=== PATIENT | female | born 1955 | race African-American/Black ===

== ENCOUNTER 2016-12-12 11:10 | Emergency (ER) | payer OTHER ==
[~2016-12-12] VITALS: Ht 165.1 cm; Wt 129.7 kg
[~2016-12-12 11:10] MED LIST: ASPI325T4 PO; ATOR40TA59 PO; CITA20TA5 PO; LANS30TA6 PO; METF500T4 PO; METO100T11 PO; MULT-658 PO; OLME1TAB35 PO; OLME1TAB5 PO; OXYC-250 PO; TRAM200T20 PO
[2016-12-12] MEDS ORDERED: IPRATRPIUM/ALBUTEROL 0.5/2.5MG 3 ML NEBU. ONE (11:52)
[2016-12-12] MEDS ORDERED: IPRATRPIUM/ALBUTEROL 0.5/2.5MG 3 ML NEBU. NEB ONE (12:00)
--- NOTE | 2016-12-12 12:50 | PHYS DOC ---
Past Medical History Past Medical History: Diabetes-Type II, High Cholesterol, Hypertension Past Surgical History: , Other Additional Past Surgical Histo: hernia x 4 Alcohol Use: None Drug Use: None Adult General Chief Complaint Chief Complaint: FLU SYMPTOM HPI HPI Patient is a 61 year old female who presents with shortness of breath and cough for the past 7 days. Patient states that she started having fever, body aches, and cough one week ago. Patient states that her fever and body aches have improved. The patient states that her was recently diagnosed with influenza and is currently in the hospital at this time. Patient states she started developing wheezing over the past few days. Patient denies any previous history of asthma but does admit to history of hypertension. Patient states that she has not taken her medication for hypertension today. Patient denies any pain, headache, difficulty with vision, or unilateral weakness. Patient's primary concern is her breathing at this time. Review of Systems Review of Systems Constitutional: Denies fever or chills [] Eyes: Denies change in visual acuity, redness, or eye pain [] HENT: Denies nasal congestion or sore throat [] Respiratory: Cough, wheezing, shortness of breath [] Cardiovascular: Denies chest pain or edema [] GI: Denies abdominal pain, nausea, vomiting, bloody stools or diarrhea [] : Denies dysuria or hematuria [] Musculoskeletal: Denies back pain or joint pain [] Integument: Denies rash or skin lesions [] Neurologic: Denies headache, focal weakness or sensory changes [] Current Medications Current Medications Current Medications Medications (Trade) Dose Ordered Sig/[facility] Start Time Stop Time Status Last Admin Dose Admin Albuterol/ Ipratropium (Duoneb) 3 ml 1X ONCE 12/12/16 12:00 12/12/16 12:01 DC 12/12/16 11:57 3 ML Prednisone (Prednisone) 50 mg 1X ONCE 12/12/16 13:00 12/12/16 13:01 IN Allergies Allergies Allergies Coded Allergies Type Severity Reaction Last Updated Verified No Known Drug Allergies 11/14/14 No Physical Exam Physical Exam Constitutional: Alert, afebrile, appears in mild discomfort. [] HENT: Normocephalic, atraumatic, bilateral external ears normal, oropharynx moist, no oral exudates, nose normal. [] Eyes: PERRLA, EOMI, conjunctiva normal, no discharge. [] Neck: Normal range of motion, no tenderness, supple, no stridor. [] Cardiovascular:Heart rate regular rhythm, no murmur [] Lungs & Thorax: Mild/moderate restriction of air movement bilaterally, expiratory wheezes bilaterally, no rales [] Abdomen: Bowel sounds normal, soft, no tenderness, no masses, no pulsatile masses. [] Skin: Warm, dry, no erythema, no rash. [] Back: No tenderness, no CVA tenderness. [] Extremities: No tenderness, no cyanosis, no clubbing, ROM intact, no edema. [] Neurologic: Alert and oriented X 3, normal motor function, normal sensory function, no focal deficits noted. [] Current Patient Data Vital Signs Vital Signs Date Time Temp Pulse Resp B/P Pulse Ox O2 Delivery O2 Flow Rate FiO2 12/12/16 11:57 99 Room Air 12/12/16 11:12 97.5 69 18 205/108 97.5 EKG EKG Interpreted by me: Heart rate 65, sinus rhythm, normal intervals, normal axis, no acute ST/T-wave abnormalities present [] Radiology/Procedures Radiology/Procedures [facility] [address] [place] [address] IMAGING REPORT Signed PATIENT: RIAN AMEZQUITA ACCOUNT: [id number] : 1955 LOCATION: ER AGE: 61 SEX: F EXAM STATUS: REG ER ORD. PHYSICIAN: CORRY MEJÍA MD REASON: cough PROCEDURE: CHEST PA & LATERAL Examination: 2 views of the chest. History: History of cough for 3 days. Comparison: The available Findings: The cardiomediastinal silhouette grossly appears unremarkable. Minimal right lung base airspace opacities likely atelectasis or infiltrates. Impression: Minimal right lung base airspace opacities likely atelectasis or infiltrates. Follow-up to resolution.. DICTATED and SIGNED BY: MILEY NEGRON MD DATE: 12/12/16 1248 CC: CORRY MEJÍA MD; MELVI BERNAL MD ~ [] Course & Med Decision Making Course & Med Decision Making Pertinent Labs and Imaging studies reviewed. (See chart for details) Patient was given DuoNeb in the emergency department with improvement in symptoms. Patient was found to have significantly elevated blood pressure in the emergency department. Patient states that she takes Tribenzor and metoprolol for her blood pressure and she has not taken her morning dose at this time. Patient denies any headache, vision changes, chest pain, or shortness of breath while at rest. The patient states that her medication is on the premises in the hospital room or her is currently being treated. She plans on taking this medication as soon as she is discharged. The patient's chest x-ray does show evidence of mild right-sided infiltrate. The patient may have a secondary pneumonia starting to form causing the patient's current symptoms at this time. The patient will be treated with a 5 day course of Levaquin and will be given albuterol and prednisone for treatment of reactive airway disease. Advised patient to continue to monitor her blood pressure at home and return to the emergency department for any worsening or severe symptoms. Also advised patient follow-up with her primary doctor in 2-3 days. Patient voiced understanding and in agreement with treatment plan. Dragon Disclaimer Dragon Disclaimer This electronic medical record was generated, in whole or in part, using a voice recognition dictation system. Departure Departure Impression: Primary Impression: Community acquired pneumonia Additional Impressions: Reactive airway disease Hypertension Disposition: 09 ADMITTED INPATIENT Condition: IMPROVED Referrals: MELVI BERNAL MD (PCP) Patient Instructions: Hypertension, Pneumonia, Adult Additional Instructions: Follow-up to primary doctor in the next 2-3 days. Be sure to take your blood pressure medication as prescribed. Return to the emergency department for any worsening symptoms. Scripts Albuterol Sulfate (Proair Hfa Inhaler)8.5 Gm Hfa.aer.ad2 Puff INH Q4-6HRS PRN WHEEZING #1 INHALER Ref 0 Prov:CORRY MEJÍA MD 12/12/16 Prednisone 50 Mg Tablet1 Tab PO DAILY #4 TAB Start on the morning of 12/13/16 Prov:CORRY MEJÍA MD 12/12/16 Levofloxacin (Levaquin)750 Mg Tablet1 Tab PO DAILY #5 TAB Prov:CORRY MEJÍA MD 12/12/16 Problem Qualifiers Additional Impressions: Reactive airway disease Asthma severity: moderate persistent Asthma complication type: uncomplicated Qualified Code: J45.40 - Moderate persistent asthma, uncomplicated Hypertension Hypertension type: essential hypertension Qualified Code: I10 - Essential ( primary) hypertension CORRY MEJÍA MD Dec 12, 2016 12:50
[2016-12-12 12:55] VITALS: BP 207/91
[2016-12-12] MEDS ORDERED: PREDNISONE 10 MG TABLET PO ONE (13:00)
[2016-12-12] MEDS ORDERED: PROAIR HFA8.5 GM INH (13:04)
[2016-12-12] MEDS ORDERED: LEVO750T31 PO (13:04)
[2016-12-12] MEDS ORDERED: PRED50TA PO (13:04)
[2016-12-12 13:37] LABS: OBC FLU VALID
[2016-12-12 13:41] LABS: NEGATIVE OBC STREP NEG; POSITIVE OBC STREP POS
--- NOTE | 2016-12-13 06:46 | EKG ---
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
== END 2016-12-12 13:25 | disposition home or self-care (01) ==
LOC: ER 11:10
DX: J18.9 Pneumonia, unspecified organism (principal); J45.909 Unspecified asthma, uncomplicated; I10 Essential (primary) hypertension; E11.9 Type 2 diabetes mellitus without complications; E78.00 Pure hypercholesterolemia, unspecified
CPT/HCPCS: 71020; 87070; 87804; 87880; 93005; 94640; 99285; J7512; J7620

== ENCOUNTER 2017-11-20 08:06 | Outpatient (CLI) | payer OTHER ==
[2017-11-20 08:47] LABS: ADD MAN DIFF? NO
[2017-11-20 08:57] LABS: BASO % 1 % (0-3); EOS # 0.1 x10^3/uL (0.0-0.7); EOS % 3 % (0-3); HEMATOCRIT 42.6 % (36.0-47.0); HEMOGLOBIN 13.9 g/dL (12.0-15.5); LYMPH # 1.8 x10^3/uL (1.0-4.8); LYMPH % 44 % (24-48); MEAN CORPUSCULAR HEMOGLOBIN 26 pg (25-35); MEAN CORPUSCULAR HGB CONC 33 g/dL (31-37); MEAN CORPUSCULAR VOLUME 80 fL (79-100); MONO # 0.4 x10^3/uL (0.0-1.1); MONO % 9 % (0-9); NEUT # 1.8 x10^3uL (1.8-7.7); NEUT % 44 % (31-73); PLATELET COUNT 285 x10^3/uL (140-400); RED CELL DISTRIBUTION WIDTH 14.8 % (11.5-14.5); WHITE BLOOD COUNT 4.2 x10^3/uL (4.0-11.0)
[2017-11-20 09:18] LABS: ANION GAP 9 (6-14); BLOOD UREA NITROGEN 9 mg/dL (7-20); CALCIUM 8.5 mg/dL (8.5-10.1); CARBON DIOXIDE 27 mmol/L (21-32); CHLORIDE 101 mmol/L (98-107); CREATININE 0.6 mg/dL (0.6-1.0); GFR 122.6; GLUCOSE 89 mg/dL (70-99); POTASSIUM 4.2 mmol/L (3.5-5.1); SODIUM 137 mmol/L (136-145)
[2017-11-20] MEDS ORDERED: IODIXANOL 320 MG/ML 100 ML VIAL. ×2 (09:18)
[2017-11-20] MEDS ORDERED: LIDOCAINE 2% 20 ML VIAL. ×2 (09:19)
[2017-11-20 09:34] LABS: INR 1.1 (0.8-1.1); PROTHROMBIN TIME PATIENT 13.2 SEC (11.7-14.0)
[2017-11-20] MEDS ORDERED: MIDAZOLAM HCL/PF 2 MG/2 ML VIAL. ×2 (10:00)
[2017-11-20] MEDS ORDERED: HEPARIN for IV BOLUS 10,000 UNIT/10 ML VIAL. ×2 (10:00)
[2017-11-20] MEDS ORDERED: VERAPAMIL 5 MG/2 ML VIAL. ×2 (10:00)
[2017-11-20] MEDS ORDERED: NITROGLYCERIN 200 MCG/2 ML SYRINGE FOR CATH/VASC LAB. ×2 (10:00)
[2017-11-20] MEDS ORDERED: fentaNYL PF VIAL 100 MCG/2 ML VIAL ×2 (10:00)
[2017-11-20] MEDS: fentaNYL PF VIAL 100 MCG/2 ML VIAL IV ×2 (10:15)
[2017-11-20] MEDS: HEPARIN for IV BOLUS 10,000 UNIT/10 ML VIAL. IART ×2 (10:15)
[2017-11-20] MEDS: MIDAZOLAM HCL/PF 2 MG/2 ML VIAL. IV ×2 (10:15)
[2017-11-20] MEDS: VERAPAMIL 5 MG/2 ML VIAL. IART ×2 (10:15)
[2017-11-20] MEDS: NITROGLYCERIN 200 MCG/2 ML SYRINGE FOR CATH/VASC LAB. IART ×2 (10:15)
[2017-11-20] MEDS: LIDOCAINE 2% 20 ML VIAL. IJ ×2 (10:15)
[2017-11-20] MEDS: IODIXANOL 320 MG/ML 100 ML VIAL. IART ×2 (10:15)
[2017-11-20] MEDS ORDERED: 0.9 % SODIUM CHLORIDE 10 ML DISP.SYRIN. IV ×2 (10:45)
[2017-11-20] MEDS ORDERED: NITROGLYCERIN SUBLINGUAL 0.4 MG BOTTLE OF 25. SL ×2 (10:45)
== END 2017-11-20 13:15 | disposition home or self-care (01) ==
LOC: CCL 08:06
DX: I20.0 Unstable angina (principal); I10 Essential (primary) hypertension; E66.9 Obesity, unspecified; Z68.42 Body mass index [BMI] 45.0-49.9, adult; E11.9 Type 2 diabetes mellitus without complications; F41.9 Anxiety disorder, unspecified; F32.9 Major depressive disorder, single episode, unspecified; Z87.891 Personal history of nicotine dependence; Z87.39 Personal history of other diseases of the musculoskeletal system and connective tissue
CPT/HCPCS: 36415; 80048; 85025; 85610; 93458; 99152; C1769; C1892; J1644; J2250; J3010; J3490

== ENCOUNTER 2019-05-15 18:35 | Emergency (ER) | payer MEDICAID, OTHER ==
[~2019-05-15] VITALS: Ht 165.1 cm; Wt 127.0 kg
[~2019-05-15 18:35] MED LIST changes: +ALBU2.5V8 INH; -ASPI325T4 PO; +ASPI325T8 PO; -CITA20TA5 PO; +CITA20TA6 PO; +CLON0.1T PO; +ESCITALOPRAM OX10 MG PO; +HYDR-3135 PO; +LEVO750T31 PO; +METF500T16 PO; -METF500T4 PO; +METO-247 PO; -METO100T11 PO; +METO50TA6 PO; +OLME1TAB25 PO; -OLME1TAB5 PO; +OXYB5TAB7 PO; -OXYC-250 PO; +OXYC1TAB22 PO; +PRED50TA PO
[2019-05-15] MEDS ORDERED: fentaNYL PF VIAL 100 MCG/2 ML VIAL IV ONE (19:00)
[2019-05-15] MEDS ORDERED: FAMOTIDINE 20 MG/2 ML VIAL IVP ONE (19:00)
[2019-05-15] MEDS ORDERED: IV NORMAL SALINE 1000ML BAG 1,000 ML IV ONE (19:00)
[2019-05-15] MEDS ORDERED: ONDANSETRON PF 4 MG/2 ML VIAL. IV ONE (19:00)
[2019-05-15 19:05] LABS: BASO % 1 % (0-3); EOS # 0.1 x10^3/uL (0.0-0.7); EOS % 2 % (0-3); HEMATOCRIT 41.4 % (36.0-47.0); HEMOGLOBIN 13.7 g/dL (12.0-15.5); LYMPH # 1.4 x10^3/uL (1.0-4.8); LYMPH % 32 % (24-48); MEAN CORPUSCULAR HEMOGLOBIN 27 pg (25-35); MEAN CORPUSCULAR HGB CONC 33 g/dL (31-37); MEAN CORPUSCULAR VOLUME 80 fL (79-100); MONO # 0.4 x10^3/uL (0.0-1.1); MONO % 8 % (0-9); NEUT # 2.7 x10^3/uL (1.8-7.7); NEUT % 58 % (31-73); PLATELET COUNT 251 x10^3/uL (140-400); RED BLOOD COUNT 5.17 x10^6/uL (3.50-5.40); RED CELL DISTRIBUTION WIDTH 15.1 % (11.5-14.5); WHITE BLOOD COUNT 4.6 x10^3/uL (4.0-11.0)
[2019-05-15 19:13] LABS: CALCIUM 8.8 mg/dL (8.5-10.1); CREATININE 1.4 mg/dL (0.6-1.0); GFR 45.8
[2019-05-15 19:14] LABS: PROTHROMBIN TIME PATIENT 12.9 SEC (11.7-14.0)
[2019-05-15 19:19] LABS: ALBUMIN 3.2 g/dL (3.4-5.0); ALBUMIN/GLOBULIN RATIO 0.9 (1.0-1.7); TOTAL BILIRUBIN 0.3 mg/dL (0.2-1.0); TOTAL PROTEIN 6.9 g/dL (6.4-8.2)
[2019-05-15] MEDS ORDERED: IOHEXOL 300 MG/ML 100ML VIAL. IV ONE (20:00)
[2019-05-15] MEDS ORDERED: CONTRAST GIVEN. MC PRN (20:00)
[2019-05-15] MEDS ORDERED: IOHEXOL 240 MG/ML 50ML VIAL. PO ONE (20:00)
--- NOTE | 2019-05-15 20:32 | PHYS DOC ---
Past Medical History Past Medical History: Diabetes-Type II, High Cholesterol, Hypertension Past Surgical History: , Other Additional Past Surgical Histo: hernia x 4, colostomy placement Alcohol Use: None Drug Use: None Adult General Chief Complaint Chief Complaint: ABDOMINAL PAIN HPI HPI Patient is a 64 year old [f__sex] who presents with [] Review of Systems Review of Systems Constitutional: Denies fever or chills Eyes: Denies redness or eye pain HENT: Denies nasal congestion or sore throat Respiratory: Denies cough or shortness of breath Cardiovascular: Denies chest pain or palpitations GI: Denies abdominal pain, nausea, or vomiting : Denies dysuria or hematuria Musculoskeletal: Denies back pain or joint pain Integument: Denies rash or skin lesions Neurologic: Denies headache, focal weakness or sensory changes Complete systems were reviewed and found to be within normal limits, except as documented in this note. Current Medications Current Medications Current Medications Medications (Trade) Dose Ordered Sig/[facility] Start Time Stop Time Status Last Admin Dose Admin Famotidine (Pepcid Vial) 20 mg 1X ONCE 05/15/19 19:00 05/15/19 19:01 DC 05/15/19 19:09 20 MG Fentanyl Citrate (Fentanyl 2ml Vial) 50 mcg 1X ONCE 05/15/19 19:00 05/15/19 19:01 DC 05/15/19 19:09 50 MCG Info (CONTRAST GIVEN -- Rx MONITORING) 1 each PRN DAILY PRN 05/15/19 20:00 05/15/19 22:22 DC Iohexol (Omnipaque 240 Mg/ml) 30 ml 1X ONCE 05/15/19 20:00 05/15/19 20:01 DC 05/15/19 20:42 30 ML Iohexol (Omnipaque 300 Mg/ml) 60 ml 1X ONCE 05/15/19 20:00 05/15/19 20:01 DC 05/15/19 20:42 60 ML Ondansetron HCl (Zofran) 4 mg 1X ONCE 05/15/19 19:00 05/15/19 19:01 DC 05/15/19 19:09 4 MG Sodium Chloride 1,000 ml @ 1,000 mls/hr 1X ONCE 05/15/19 19:00 05/15/19 19:59 DC 05/15/19 19:09 1,000 MLS/HR Allergies Allergies Allergies Coded Allergies Type Severity Reaction Last Updated Verified No Known Drug Allergies 05/15/18 No Physical Exam Physical Exam Constitutional: Well developed, well nourished, no acute distress, non-toxic appearance HENT: Normocephalic, atraumatic, oropharynx moist Eyes: PERRL, EOMI, conjunctiva normal, no discharge Neck: Normal range of motion, no tenderness, supple Cardiovascular: Heart rate normal, regular rhythm Lungs & Thorax: Bilateral breath sounds clear to auscultation, no wheezing Abdomen: Soft, no tenderness Skin: Warm, dry, no erythema, no rash Back: No tenderness, no CVA tenderness Extremities: No tenderness, ROM intact, no edema Neurologic: Alert and oriented X 3, normal motor function, normal sensory function, no focal deficits noted Psychologic: Affect normal, judgement normal, mood normal Current Patient Data Vital Signs Vital Signs Date Time Temp Pulse Resp B/P (MAP) Pulse Ox O2 Delivery O2 Flow Rate FiO2 05/15/19 21:56 72 233/98 (143) 96 Room Air 05/15/19 21:00 18 05/15/19 18:35 97.5 97.5 Lab Values Laboratory Tests Test 05/15/19 18:40 05/15/19 19:01 05/15/19 20:50 White Blood Count 4.6 x10^3/uL (4.0-11.0) Red Blood Count 5.17 x10^6/uL (3.50-5.40) Hemoglobin 13.7 g/dL (12.0-15.5) Hematocrit 41.4 % (36.0-47.0) Mean Corpuscular Volume 80 fL (79-100) Mean Corpuscular Hemoglobin 27 pg (25-35) Mean Corpuscular Hemoglobin Concent 33 g/dL (31-37) Red Cell Distribution Width 15.1 % (11.5-14.5) H Platelet Count 251 x10^3/uL (140-400) Neutrophils (%) (Auto) 58 % (31-73) Lymphocytes (%) (Auto) 32 % (24-48) Monocytes (%) (Auto) 8 % (0-9) Eosinophils (%) (Auto) 2 % (0-3) Basophils (%) (Auto) 1 % (0-3) Neutrophils # (Auto) 2.7 x10^3/uL (1.8-7.7) Lymphocytes # (Auto) 1.4 x10^3/uL (1.0-4.8) Monocytes # (Auto) 0.4 x10^3/uL (0.0-1.1) Eosinophils # (Auto) 0.1 x10^3/uL (0.0-0.7) Basophils # (Auto) 0.0 x10^3/uL (0.0-0.2) Prothrombin Time 12.9 SEC (11.7-14.0) Prothrombin Time INR 1.0 (0.8-1.1) Activated Partial Thromboplast Time 29 SEC (24-38) Sodium Level 143 mmol/L (136-145) Potassium Level 4.0 mmol/L (3.5-5.1) Chloride Level 106 mmol/L (98-107) Carbon Dioxide Level 28 mmol/L (21-32) Anion Gap 9 (6-14) Blood Urea Nitrogen 16 mg/dL (7-20) Creatinine 1.4 mg/dL (0.6-1.0) H Estimated GFR (Cockcroft-Gault) 45.8 BUN/Creatinine Ratio 11 (6-20) Glucose Level 134 mg/dL (70-99) H Calcium Level 8.8 mg/dL (8.5-10.1) Total Bilirubin 0.3 mg/dL (0.2-1.0) Aspartate Amino Transferase (AST) 26 U/L (15-37) Alanine Aminotransferase (ALT) 41 U/L (14-59) Alkaline Phosphatase 97 U/L (46-116) Creatine Kinase 162 U/L (26-192) Creatine Kinase MB (Mass) 1.8 ng/mL (0.0-3.6) Creatine Kinase MB Relative Index 1.1 % (0-4) Troponin I Quantitative < 0.017 ng/mL (0.000-0.055) Total Protein 6.9 g/dL (6.4-8.2) Albumin 3.2 g/dL (3.4-5.0) L Albumin/Globulin Ratio 0.9 (1.0-1.7) L Lipase 135 U/L (73-393) Lactic Acid Level 1.3 mmol/L (0.4-2.0) Urine Collection Type Unknown Urine Color Yellow Urine Clarity Clear Urine pH 5.0 Urine Specific [place] >=1.030 Urine Protein Negative mg/dL (NEG-TRACE) Urine Glucose (UA) Negative mg/dL (NEG) Urine Ketones (Stick) Negative mg/dL (NEG) Urine Blood Negative (NEG) Urine Nitrite Negative (NEG) Urine Bilirubin Negative (NEG) Urine Urobilinogen Dipstick 1.0 mg/dL (0.2 mg/dL) Urine Leukocyte Esterase Negative (NEG) Urine RBC 0 /HPF (0-2) Urine WBC 1-4 /HPF (0-4) Urine Squamous Epithelial Cells Mod /LPF Urine Bacteria 0 /HPF (0-FEW) Urine Mucus Mod /LPF Laboratory Tests 05/15/19 18:40 Laboratory Tests 05/15/19 18:40 EKG EKG @1914 NSR 63bpm, NO ST elevation, baseline artifact throughout Radiology/Procedures Radiology/Procedures PROCEDURE: CT ABD PELV W/ORAL&IV CONTRAST EXAM: CT Abdomen and Pelvis with IV contrast CLINICAL HISTORY: Left upper quadrant pain, history of pancreatitis. COMPARISON: none TECHNIQUE: Helical CT of the abdomen and pelvis was performed following the administration of intravenous contrast. Axial, coronal and sagittal reformatted images were generated. PQRS compliance statement - One or more of the following individualized dose reduction techniques were utilized for this study: 1. Automated exposure control 2. Adjustment of the mA and/or kV according to patient size 3. Use of iterative reconstruction technique FINDINGS: Lower chest: Linear opacities in the lingula and lower lobes likely scarring/atelectasis. Heart is mildly enlarged. Abdomen and Pelvis: No focal liver lesion. Gallbladder is normal. No biliary ductal dilatation. Pancreas is unremarkable. Spleen is normal in appearance. Adrenal glands are unremarkable. Symmetric nephrograms. No focal renal lesion. No hydronephrosis. No hydroureter. Bladder is unremarkable. Moderate colonic stool content is seen. No small or large bowel dilatation. Appendix is normal. There are 2 ventral abdominal hernias containing segments of colon. No abdominal pelvic ascites. No abdominal or pelvic lymphadenopathy. Aortic calcifications are seen. Bones: Multilevel degenerative changes of the spine are seen. IMPRESSION: 1. No evidence for acute pancreatitis. 2. There are at least 2 ventral abdominal hernias containing segments of colon. 3. No evidence of bowel obstruction. 4. No abdominal or pelvic ascites. No abdominal or pelvic lymphadenopathy. Electronically signed by: Chon Lea MD (05/15/2019 9:17 PM) [facility] Course & Med Decision Making Course & Med Decision Making Pertinent Labs and Imaging studies reviewed. (See chart for details) Patient stable for discharge with outpatient follow-up with PCP. Discussed findings and plan with patient and family, who acknowledge understanding and agreement. Dragon Disclaimer Dragon Disclaimer This electronic medical record was generated, in whole or in part, using a voice recognition dictation system. Departure Departure Impression: Primary Impression: Abdominal pain Additional Impression: Ventral hernia Disposition: HOME, SELF-CARE Condition: STABLE Referrals: HEATHER LAUREN DO (PCP) RUSS GEORGE MD, VINAY MD Patient Instructions: Abdominal Pain (Nonspecific), Hernia, Eowh-el-Udyq Scripts Hydrocodone/Apap 5-325 (NORCO 5-325 TABLET) 1 Each Tablet 0.5 TAB PO PRN Q6HRS PRN for PAIN, #10 TAB 0 Refills Prov: KLAUS STEVENS DO 05/15/19 Problem Qualifiers Primary Impression: Abdominal pain Abdominal location: left upper quadrant Qualified Codes: R10.12 - Left upper quadrant pain Additional Impression: Ventral hernia Obstruction and gangrene presence: without obstruction or gangrene Qualified Codes: K43.9 - Ventral hernia without obstruction or gangrene KLAUS STEVENS DO May 15, 2019 20:32
[2019-05-15 21:00] LABS: BILIRUBIN,URINE NEGATIVE (NEG); CLARITY,URINE CLEAR; COLOR,URINE YELLOW; NITRITE,URINE NEGATIVE (NEG); PROTEIN,URINE NEGATIVE (NEG-TRACE)
[2019-05-15 21:07] LABS: SQUAMOUS EPITHELIAL CELL,UR MOD /LPF
[2019-05-15 21:08] LABS: BACTERIA,URINE 0 /HPF (0-FEW); RBC,URINE 0 /HPF (0-2)
--- NOTE | 2019-05-15 21:19 | RAD ---
EXAM: CT Abdomen and Pelvis with IV contrast CLINICAL HISTORY: Left upper quadrant pain, history of pancreatitis. COMPARISON: none TECHNIQUE: Helical CT of the abdomen and pelvis was performed following the administration of intravenous contrast. Axial, coronal and sagittal reformatted images were generated. PQRS compliance statement - One or more of the following individualized dose reduction techniques were utilized for this study: 1. Automated exposure control 2. Adjustment of the mA and/or kV according to patient size 3. Use of iterative reconstruction technique FINDINGS: Lower chest: Linear opacities in the lingula and lower lobes likely scarring/atelectasis. Heart is mildly enlarged. Abdomen and Pelvis: No focal liver lesion. Gallbladder is normal. No biliary ductal dilatation. Pancreas is unremarkable. Spleen is normal in appearance. Adrenal glands are unremarkable. Symmetric nephrograms. No focal renal lesion. No hydronephrosis. No hydroureter. Bladder is unremarkable. Moderate colonic stool content is seen. No small or large bowel dilatation. Appendix is normal. There are 2 ventral abdominal hernias containing segments of colon. No abdominal pelvic ascites. No abdominal or pelvic lymphadenopathy. Aortic calcifications are seen. Bones: Multilevel degenerative changes of the spine are seen. IMPRESSION: 1. No evidence for acute pancreatitis. 2. There are at least 2 ventral abdominal hernias containing segments of colon. 3. No evidence of bowel obstruction. 4. No abdominal or pelvic ascites. No abdominal or pelvic lymphadenopathy. Electronically signed by: Chon Lea MD (05/15/2019 9:17 PM) [facility]
[2019-05-15] MEDS ORDERED: HYDR-3164 PO (21:36)
[2019-05-15 21:56] VITALS: BP 233/98
--- NOTE | 2019-05-16 10:17 | EKG ---
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
== END 2019-05-15 22:05 | disposition home or self-care (01) ==
LOC: ER 18:35
DX: K43.9 Ventral hernia without obstruction or gangrene (principal); E11.9 Type 2 diabetes mellitus without complications; E78.00 Pure hypercholesterolemia, unspecified; I10 Essential (primary) hypertension; Z98.890 Other specified postprocedural states; Z93.3 Colostomy status
CPT/HCPCS: 36415; 74177; 80053; 81001; 82553; 83605; 83690; 84484; 85025; 85610; 85730; 93005; 96374; 96375; 99285; J2405; J3010; J3490; J7030; Q9966; Q9967

== ENCOUNTER → 2019-08-06 | Day surgery (SDC) | payer MEDICAID ==
[~2019-08-06] MED LIST changes: +HYDR-3164 PO; +HYDROmorphone 2 MG/ML VIAL IV PRN; +IV RINGERS,LACTATED 1000ML 1,000 ML IV SCH; +MORPHINE SULFATE 2 MG/ML VIAL. IV PRN; +OXYB5TAB10 PO; -OXYB5TAB7 PO; +PROCHLORPERAZINE 10 MG/2 ML VIAL. IV PRN; +PROPOFOL 40 ML IV ONE; +fentaNYL PF VIAL 100 MCG/2 ML VIAL IV PRN
--- NOTE | 2019-08-06 07:38 | CONS ---
DATE OF CONSULTATION: 08/06/2019 REFERRING PHYSICIAN: Dr. Martin. HISTORY OF PRESENT ILLNESS: This is a 64-year-old -[place] female with past medical history significant for hypertension, hyperlipidemia as well as colon cancer, status post diverting ostomy, chemotherapy and radiation seen for colostomy takedown. She has undergone chemotherapy and radiation. Bowel habits at this time are stable. She wishes to proceed. PAST MEDICAL HISTORY: Hyperlipidemia, hypertension, diabetes. ALLERGIES: None. MEDICATIONS: Include [place], albuterol, aspirin, atorvastatin, clonidine, citalopram, metformin, metoprolol, hydrochlorothiazide, amlodipine. SOCIAL HISTORY: She is a nonsmoker, nondrinker. FAMILY HISTORY: Significant for kidney cancer with her son. PAST SURGICAL HISTORY: , hysterectomy, ventral hernia repair as well as colon cancer with diverting ostomy. REVIEW OF SYSTEMS: Per records. PHYSICAL EXAMINATION: GENERAL: Reveals a well-nourished, well-developed -[place] female who is alert, cooperative, no acute distress. VITAL SIGNS: Temperature is 97.8, pulse 58, respiratory rate 18. HEENT: Normocephalic, atraumatic head. Pupils and extraocular muscles are not tested. Sclerae anicteric. NECK: Supple. LUNGS: Clear. CARDIOVASCULAR: Reveals an S1, S2 without S3, S4 or appreciable murmur. ABDOMEN: Reveals a soft abdomen, normal bowel sounds, without appreciable hepatosplenomegaly with an ostomy in left lower quadrant. EXTREMITIES: Reveals no cyanosis, clubbing or edema. IMPRESSION: Colon cancer, status post chemoradiation here for surveillance colonoscopy prior to colostomy takedown. Risks and benefits of procedure including risk of hemorrhage and perforation have been discussed. The patient is willing to proceed at this time. RUSS GEORGE MD DR: SANA/ash JOB#: [id number] / [id number]
[2019-08-06 07:56] VITALS: BP 180/84
== END | disposition home or self-care (01) ==
LOC: SURG 06:26
PROVIDERS: ATTEND Internal Medicine Gastroenterology
DX: Z12.11 Encounter for screening for malignant neoplasm of colon (principal); K57.30 Diverticulosis of large intestine without perforation or abscess without bleeding; K64.0 First degree hemorrhoids; E78.5 Hyperlipidemia, unspecified; E11.9 Type 2 diabetes mellitus without complications; Z85.038 Personal history of other malignant neoplasm of large intestine; Z93.3 Colostomy status; Z90.710 Acquired absence of both cervix and uterus; Z98.890 Other specified postprocedural states; Z79.82 Long term (current) use of aspirin; Z79.84 Long term (current) use of oral hypoglycemic drugs
CPT/HCPCS: 44388; J2704; 45378

== ENCOUNTER 2019-09-09 19:45 | Inpatient (IN) | payer MEDICAID ==
[~2019-09-09] VITALS: Ht 165.1 cm; Wt 130.6 kg
[2019-09-09 19:30] VITALS: BP 156/100
[~2019-09-09 19:45] MED LIST changes: -HYDROmorphone 2 MG/ML VIAL IV PRN; -IV RINGERS,LACTATED 1000ML 1,000 ML IV SCH; -MORPHINE SULFATE 2 MG/ML VIAL. IV PRN; -PROCHLORPERAZINE 10 MG/2 ML VIAL. IV PRN; -PROPOFOL 40 ML IV ONE; -fentaNYL PF VIAL 100 MCG/2 ML VIAL IV PRN
[2019-09-09] MEDS ORDERED: ACETAMINOPHEN 325 MG TABLET. PO PRN (21:15)
[2019-09-09] MEDS ORDERED: ONDANSETRON PF 4 MG/2 ML VIAL. IV PRN (21:15)
[2019-09-09] MEDS ORDERED: DOCUSATE SODIUM 100 MG CAPSULE. PO PRN (21:15)
[2019-09-09] MEDS ORDERED: DEXTROSE 50% 25 GM / 50ML DISP.SYRIN. IV PRN (21:15)
[2019-09-09] MEDS ORDERED: LABETALOL 20 MG/4 ML DISP.SYRIN. IVP PRN (21:15)
[2019-09-09] MEDS ORDERED: cloNIDine HCL 0.1 MG TABLET PO PRN (21:15)
[2019-09-09] MEDS ORDERED: ALBUTEROL SULFATE 2.5 MG/3 ML NEBU. INH PRN (21:15)
[2019-09-09] MEDS: OXYBUTYNIN CHLORIDE 5 MG TABLET PO SCH (21:30)
[2019-09-09] MEDS: ATORVASTATIN CALCIUM 40 MG TABLET. PO SCH (21:30)
[2019-09-09] MEDS: cloNIDine HCL 0.1 MG TABLET PO SCH (21:30)
[2019-09-09] MEDS: METOPROLOL TART IMMED RELEASE 50 MG TABLET. PO SCH (21:30)
[2019-09-09] MEDS: INSULIN LISPRO 300 UNITS/3 ML VIAL. SQ SCH (21:30)
[2019-09-09 23:58] VITALS: BP 101/74
[2019-09-10 03:40] VITALS: BP 147/99
[2019-09-10 06:40] LABS: CALCIUM 8.7 mg/dL (8.5-10.1); CREATININE 0.9 mg/dL (0.6-1.0); GFR 76.3; POTASSIUM 3.9 mmol/L (3.5-5.1)
[2019-09-10 07:00] VITALS: BP 166/80
[2019-09-10] MEDS: INSULIN LISPRO 300 UNITS/3 ML VIAL. SQ SCH ×4 (07:30→21:00)
[2019-09-10] MEDS ORDERED: metFORMIN 500 MG TABLET PO SCH (08:00)
[2019-09-10] MEDS ORDERED: ASPIRIN 325 MG TABLET PO SCH (08:00)
[2019-09-10] MEDS ORDERED: [UNRECOGNIZED DRUG - OTHER] PO SCH (09:00)
[2019-09-10] MEDS ORDERED: OLMESARTAN PO SCH (09:00)
[2019-09-10] MEDS ORDERED: FLU VAX QS 2019-20 (36MOS+)/PF 0.5 ML SYRINGE. VAX IM ONE (09:00)
[2019-09-10] MEDS ORDERED: HCTHIAZID PO SCH (09:00)
[2019-09-10] MEDS ORDERED: AMLODIPIN PO SCH (09:00)
[2019-09-10] MEDS ORDERED: ENOXAPARIN 40 MG/0.4 ML SYRINGE. SQ SCH ×2 (09:00→13:30)
[2019-09-10] MEDS: LOSARTAN POTASSIUM 50 MG TABLET. PO SCH (09:53)
[2019-09-10] MEDS: cloNIDine HCL 0.1 MG TABLET PO SCH ×2 (09:53→21:00)
[2019-09-10] MEDS: hydroCHLOROthiazide 25 MG TABLET PO SCH (09:54)
[2019-09-10] MEDS: amLODIPine BESYLATE 10 MG TABLET PO SCH (09:54)
[2019-09-10] MEDS: OXYBUTYNIN CHLORIDE 5 MG TABLET PO SCH ×3 (09:55→22:23)
[2019-09-10] MEDS: METOPROLOL TART IMMED RELEASE 50 MG TABLET. PO SCH (09:55)
[2019-09-10] MEDS: CITALOPRAM 20 MG TABLET. PO SCH (09:56)
--- NOTE | 2019-09-10 10:42 | PDOC2 ---
NEUROLOGY CONSULT Date of Admission Date of Admission DATE: 09/10/19 TIME: 10:33 Reason for Consult Reason for Consult: Dizziness Referring Physician Referring Physician: Dr. Bardales Source Source: Chart review, Patient History of Present Illness History of Present Illness I was never notified of this consult, she appeared on my list this morning. The patient is a 64-year-old right-handed female who presented to the [facility] emergency room with dizziness. Dizziness was worse with head and position change. She has had some fullness in the right ear for the past 3 days. She was hypertensive with blood pressures of 200/100 in the emergency department. She did have some nausea and vomiting, but no dysarthria, dysphagia, diplopia, focal numbness, weakness. Apparently on NIH, there was some right leg weakness, not confirmed by the emergency room physician. The emergency room physician did note cerumen impaction of the right tympanic membrane. She has no history of stroke, seizure, or head injury. Past Medical History Cardiovascular: CHF (cardiomyopathy), HTN Pulmonary: Other (sleep apnea) Heme/Onc: Cancer (colon) Psych: Anxiety, Depression Musculoskeletal: Osteoarthritis (knees) Past Surgical History Past Surgical History: Cataract Removal, , Hernia Repair (abdominal times 3), Hysterectomy, Colon Resection (colostomy) Family History Family History: CAD Social History Social History , retired, no alcohol or tobacco Current Medications Current Medications Current Medications Ondansetron HCl (Zofran) 4 mg PRN Q4HRS PRN IV NAUSEA/VOMITING; Start 09/09/19 at 21:15 Acetaminophen (Tylenol) 650 mg PRN Q4HRS PRN PO TEMP OVER 100.4F OR MILD PAIN; Start 09/09/19 at 21:15 Clonidine HCl (Catapres) 0.1 mg PRN Q6HRS PRN PO SBP>160 OR DBP>90; Start 09/09/19 at 21:15 Docusate Sodium (Colace) 100 mg PRN BID PRN PO CONSTIPATION; Start 09/09/19 at 21:15 Enoxaparin Sodium (Lovenox 40mg Syringe) 40 mg DAILY SQ Last administered on 09/10/19at 09:56; Start 09/10/19 at 09:00 Labetalol HCl (Normodyne Iv Push) 10 mg PRN Q2HR PRN IVP HYPERTENSION; Start 09/09/19 at 21:15 Insulin Human Lispro (HumaLOG) 0-7 UNITS TIDACHC SQ ; Start 09/09/19 at 21:30 Dextrose (Dextrose 50%-Water Syringe) 12.5 gm PRN Q15MIN PRN IV SEE COMMENTS; Start 09/09/19 at 21:15 Albuterol Sulfate (Ventolin Neb Soln) 2.5 mg PRN Q4HRS PRN INH WHEEZING; Start 09/09/19 at 21:15 Aspirin (Radha Aspirin) 325 mg DAILYWBKFT PO Last administered on 09/10/19 09:55; Start 09/10/19 at 08:00 Atorvastatin Calcium (Lipitor) 40 mg QHS PO ; Start 09/09/19 at 21:30 Clonidine HCl (Catapres) 0.2 mg BID PO Last administered on 09/10/19at 09:53; Start 09/09/19 at 21:30 Acetaminophen/ Hydrocodone Bitart (Lortab 10/325) 1 tab PRN QHS PRN PO pain; Start 09/09/19 at 21:15 Metformin HCl (Glucophage) 500 mg BIDWMEALS PO Last administered on 09/10/19 09:55; Start 09/10/19 at 08:00 Metoprolol Tartrate (Lopressor) 50 mg BID PO Last administered on 09/10/19 09:55; Start 09/09/19 at 21:30 Oxybutynin Chloride (Ditropan) 5 mg TID PO Last administered on 09/10/19 09:55; Start 09/09/19 at 21:30 Citalopram Hydrobromide (CeleXA) 20 mg DAILY PO Last administered on 09/10/19 09:56; Start 09/10/19 at 09:00 Non-Formulary Medication (Olmesartan/ Amlodipin/ Hcthiazid (Tribenzor 40-10-25 Mg Tablet)) 1 tab DAILY PO ; Start 09/10/19 at 09:00; Status UNV Losartan Potassium (Cozaar) 100 mg DAILY PO Last administered on 09/10/19 09:53; Start 09/10/19 at 09:00 Amlodipine Besylate (Norvasc) 10 mg DAILY PO Last administered on 09/10/19 09:54; Start 09/10/19 at 09:00 Hydrochlorothiazide (Hydrodiuril) 25 mg DAILY PO Last administered on 09/10/19at 09:54; Start 09/10/19 at 09:00 Influenza Virus Vaccine Quadrival (Afluria Quad 2019-20 (3yr Up) Syringe) 0.5 ml ONCE ONCE VAX IM Last administered on 09/10/19at 10:06; Start 09/10/19 at 09:00; Stop 09/10/19 at 09:01; Status DC Active Scripts Active Proair Hfa Inhaler (Albuterol Sulfate) 8.5 Gm Hfa.aer.ad 2 Puff INH Q4-6HRS PRN Reported [place] 10-325 Tablet (Acetaminophen/Hydrocodone Bitart) 1 Each Tablet 1 Tab PO QHS Metoprolol Tartrate 50 Mg Tablet 1 Tab PO BID Oxybutynin Chloride 5 Mg Tablet 5 Mg PO TID Clonidine Hcl 0.1 Mg Tablet 0.2 Mg PO BID Escitalopram Oxalate 10 Mg Tablet 1 Tab PO DAILY Tribenzor 40-10-25 Mg Tablet (Olmesartan/Amlodipin/Hcthiazid) 1 Each Tablet 1 Tab PO DAILY Centrum Silver Tablet (Multivits-Min/Fa/Lycopene/Lut) 1 Each Tablet 1 Each PO Aspirin 325 Mg Tablet 1 Tab PO DAILY Atorvastatin Calcium 40 Mg Tablet 1 Tab PO DAILY Metformin Hcl 500 Mg Tablet 1 Tab PO BID Allergies Allergies: Coded Allergies: No Known Drug Allergies (Unverified , 08/06/19) ROS Review of System Negative for fever, chills, weight loss, shortness of breath, chest pain, indigestion, hematochezia, melena, and dysuria. Full 14-point review of systems is negative. Physical Exam Physical Examination General: Well-developed, well-nourished black female in no acute distress HEENT: Normocephalic andatraumatic. Tympanic membranes: impacted cerumen on the right, normal on the left.Temporal arteriespulsatile and nontender. Neck: Supple without bruit, no meningismus Musculoskeletal: Stability:see neurologic. Gait exam:see neurologic. Tone:see neurologic.Strength:see neurologic. Neurological: Mental Status:intact, orientation, memory, attention span/concentration, language, fund of knowledge normal. Cranial Nerves:Pupils equal and reactive to light, extraocular movements areintact, visual gonzalez are full to confrontation. Facial sensation is normal. There is no facial asymmetry. Vestibulo-ocular reflex is intact. Palate elevates and tongue protrudes in midline. All other cranial related problems are negative except as mentioned before.Reflexes:2+ and symmetric with flexor plantar responses. Motor:5/5 strength with normal tone and bulk. Coordination:Finger-nose finger and [id number] testing are normal. Rapid alternating movements and fine finger movements are intact. Gait:arthritic, can't tandem. Sensory:Normal pinprick, vibration, light touch, proprioception. Vitals VITALS Vital Signs Date Time Temp Pulse Resp B/P (MAP) Pulse Ox O2 Delivery O2 Flow Rate FiO2 09/10/19 09:55 64 166/80 09/10/19 07:00 98.1 18 98 Room Air 98.1 Labs Labs Laboratory Tests Test 09/09/19 21:33 09/10/19 05:15 09/10/19 10:28 Glucose (Fingerstick) 101 mg/dL (70-99) 186 mg/dL (70-99) Sodium Level 143 mmol/L (136-145) Potassium Level 3.9 mmol/L (3.5-5.1) Chloride Level 106 mmol/L (98-107) Carbon Dioxide Level 30 mmol/L (21-32) Anion Gap 7 (6-14) Blood Urea Nitrogen 13 mg/dL (7-20) Creatinine 0.9 mg/dL (0.6-1.0) Estimated GFR (Cockcroft-Gault) 76.3 Glucose Level 113 mg/dL (70-99) Calcium Level 8.7 mg/dL (8.5-10.1) Laboratory Tests Test 09/09/19 21:33 09/10/19 05:15 09/10/19 10:28 Glucose (Fingerstick) 101 mg/dL (70-99) 186 mg/dL (70-99) Sodium Level 143 mmol/L (136-145) Potassium Level 3.9 mmol/L (3.5-5.1) Chloride Level 106 mmol/L (98-107) Carbon Dioxide Level 30 mmol/L (21-32) Anion Gap 7 (6-14) Blood Urea Nitrogen 13 mg/dL (7-20) Creatinine 0.9 mg/dL (0.6-1.0) Estimated GFR (Cockcroft-Gault) 76.3 Glucose Level 113 mg/dL (70-99) Calcium Level 8.7 mg/dL (8.5-10.1) Images Images CT HEAD WO CONTRAST, [facility] History: Dizziness Comparison/Correlation: 01/05/2014 CT head without contrast Findings: Axial images of the head were obtained without contrast. Metastatic disease present. No intracranial hemorrhage, midline shift, mass effect. Old right basal ganglia lacunar infarct is present. Bony structures unremarkable. Impression: No suspicious process. Assessment/Plan Assessment/Plan Impression: I'm not picking up on any signs of a stroke. On the other hand, she has had fullness in the right ear for 4 days and has cerumen in the right ear seen on my exam as well as that of the emergency room physician. Therefore, I doubt that she had a stroke, but rather just patent cerumen. Gait disorder due to arthritis in the knees Recommendations: MRI of the brain Rehabilitation screening No need for full stroke pathway unless MRI abnormal Okay for discharged today I instructed the patient to follow up with her primary physician for removal of impacted cerumen or she could see ENT. Thank you for letting me help with the patient's care. CHEVY IRELAND MD Sep 10, 2019 10:42
[2019-09-10 10:49] VITALS: BP 143/60
--- NOTE | 2019-09-10 10:54 | PDOC1 ---
History and Physical Date of Admission Date of Admission DATE: 09/10/19 TIME: 10:53 Identification/Chief Complaint Chief Complaint admitted with dizziness, vertigo, gait disturbance, fall risk, high Past Medical History Past Medical History Past Medical History Cardiovascular: CHF (cardiomyopathy), HTN Pulmonary: Other (sleep apnea) Heme/Onc: Cancer (colon) Psych: Anxiety, Depression Musculoskeletal: Osteoarthritis (knees) Past Surgical History Past Surgical History: Cataract Removal, , Hernia Repair (abdominal times 3), Hysterectomy, Colon Resection (colostomy) Family History Family History: CAD Social History Social History , retired, no alcohol or tobacco Cardiovascular: CHF (cardiomyopathy), HTN Pulmonary: Other (sleep apnea) GI: Other Heme/Onc: Cancer (colon) Psych: Anxiety, Depression Musculoskeletal: Osteoarthritis (knees) Past Surgical History Past Surgical History: Cataract Removal, , Hernia Repair (abdominal times 3), Hysterectomy, Colon Resection (colostomy) Family History Family History: High Cholestrol, Other Family History: Parent Social History Smoke: No ALCOHOL: none Drugs: None Current Medications Current Medications Current Medications Ondansetron HCl (Zofran) 4 mg PRN Q4HRS PRN IV NAUSEA/VOMITING; Start 09/09/19 at 21:15 Acetaminophen (Tylenol) 650 mg PRN Q4HRS PRN PO TEMP OVER 100.4F OR MILD PAIN; Start 09/09/19 at 21:15 Clonidine HCl (Catapres) 0.1 mg PRN Q6HRS PRN PO SBP>160 OR DBP>90; Start 09/09/19 at 21:15 Docusate Sodium (Colace) 100 mg PRN BID PRN PO CONSTIPATION; Start 09/09/19 at 21:15 Enoxaparin Sodium (Lovenox 40mg Syringe) 40 mg DAILY SQ Last administered on 09/10/19at 09:56; Start 09/10/19 at 09:00 Labetalol HCl (Normodyne Iv Push) 10 mg PRN Q2HR PRN IVP HYPERTENSION; Start 09/09/19 at 21:15 Insulin Human Lispro (HumaLOG) 0-7 UNITS TIDACHC SQ ; Start 09/09/19 at 21:30 Dextrose (Dextrose 50%-Water Syringe) 12.5 gm PRN Q15MIN PRN IV SEE COMMENTS; Start 09/09/19 at 21:15 Albuterol Sulfate (Ventolin Neb Soln) 2.5 mg PRN Q4HRS PRN INH WHEEZING; Start 09/09/19 at 21:15 Aspirin (Radha Aspirin) 325 mg DAILYWBKFT PO Last administered on 09/10/19 09:55; Start 09/10/19 at 08:00 Atorvastatin Calcium (Lipitor) 40 mg QHS PO ; Start 09/09/19 at 21:30 Clonidine HCl (Catapres) 0.2 mg BID PO Last administered on 09/10/19 09:53; Start 09/09/19 at 21:30 Acetaminophen/ Hydrocodone Bitart (Lortab 10/325) 1 tab PRN QHS PRN PO pain; Start 09/09/19 at 21:15 Metformin HCl (Glucophage) 500 mg BIDWMEALS PO Last administered on 09/10/19 09:55; Start 09/10/19 at 08:00 Metoprolol Tartrate (Lopressor) 50 mg BID PO Last administered on 09/10/19 09:55; Start 09/09/19 at 21:30 Oxybutynin Chloride (Ditropan) 5 mg TID PO Last administered on 09/10/19 09:55; Start 09/09/19 at 21:30 Citalopram Hydrobromide (CeleXA) 20 mg DAILY PO Last administered on 09/10/19 09:56; Start 09/10/19 at 09:00 Non-Formulary Medication (Olmesartan/ Amlodipin/ Hcthiazid (Tribenzor 40-10-25 Mg Tablet)) 1 tab DAILY PO ; Start 09/10/19 at 09:00; Status UNV Losartan Potassium (Cozaar) 100 mg DAILY PO Last administered on 09/10/19 09:53; Start 09/10/19 at 09:00 Amlodipine Besylate (Norvasc) 10 mg DAILY PO Last administered on 09/10/19 09:54; Start 09/10/19 at 09:00 Hydrochlorothiazide (Hydrodiuril) 25 mg DAILY PO Last administered on 09/10/19 09:54; Start 09/10/19 at 09:00 Influenza Virus Vaccine Quadrival (Afluria Quad 2019-20 (3yr Up) Syringe) 0.5 ml ONCE ONCE VAX IM Last administered on 09/10/19at 10:06; Start 09/10/19 at 09:00; Stop 09/10/19 at 09:01; Status DC Active Scripts Active Proair Hfa Inhaler (Albuterol Sulfate) 8.5 Gm Hfa.aer.ad 2 Puff INH Q4-6HRS PRN Reported [place] 10-325 Tablet (Acetaminophen/Hydrocodone Bitart) 1 Each Tablet 1 Tab PO QHS Metoprolol Tartrate 50 Mg Tablet 1 Tab PO BID Oxybutynin Chloride 5 Mg Tablet 5 Mg PO TID Clonidine Hcl 0.1 Mg Tablet 0.2 Mg PO BID Escitalopram Oxalate 10 Mg Tablet 1 Tab PO DAILY Tribenzor 40-10-25 Mg Tablet (Olmesartan/Amlodipin/Hcthiazid) 1 Each Tablet 1 Tab PO DAILY Centrum Silver Tablet (Multivits-Min/Fa/Lycopene/Lut) 1 Each Tablet 1 Each PO Aspirin 325 Mg Tablet 1 Tab PO DAILY Atorvastatin Calcium 40 Mg Tablet 1 Tab PO DAILY Metformin Hcl 500 Mg Tablet 1 Tab PO BID Allergies Allergies: Coded Allergies: No Known Drug Allergies (Unverified , 08/06/19) ROS General: No: Chills, Night Sweats, Fatigue, Malaise, Appetite, Other PSYCHOLOGICAL ROS: No: Anxiety, Behavioral Disorder, Concentration difficultie, Decreased libido, Depression, Disorientation, Hallucinations, Hostility, Irritablity, Memory difficulties, Mood Swings, Obsessive thoughts, Physical abuse, Sexual abuse, Sleep disturbances, Suicidal ideation, Other Eyes: No Blurry vision, No Decreased vision, No Double vision, No Dry eyes, No Excessive tearing, No Eye Pain, No Itchy Eyes, No Loss of vision, No Photophobia, No Scotomata, No Uses contacts, No Uses glasses, No Other ALLERGY AND IMMUNOLOGY: No: Hives, Insect Bite Sensitivity, Itchy/Watery Eyes, Nasal Congestion, Post Nasal Drip, Seasonal Allergies, Other Hematological and Lymphatic: No: Bleeding Problems, Blood Clots, Blood Transfusions, Brusing, Night Sweats, Pallor, Swollen Lymph Nodes, Other ENDOCRINE: No: Breast Changes, Galactorrhea, Hair Pattern Changes, Hot Flashes, Malaise/lethargy, Mood Swings, Palpitations, Polydipsia/polyuria, Skin Changes, Temperature Intolerance, Unexpected Weight Changes, Other Respiratory: No: Cough, Hemoptysis, Orthopnea, Pleuritic Pain, Shortness of breath, SOB with excertion, Sputum Changes, Stridor, Tachypnea, Wheezing, Other Gastrointestinal: No Nausea, No Vomiting, No Abdominal Pain, No Diarrhea, No Constipation, No Melena, No Hematochezia, No Other Genitourinary: No Dysuria, No Frequency, No Incontinence, No Hematuria, No Retention, No Discharge, No Urgency, No Pain, No Flank Pain, No Other, No , No , No , No , No , No , No Musculoskeletal: Yes Gait Disturbance Neurological: Yes Gait Disturbance Skin: No Dry Skin, No Eczema, No Hair Changes, No Lumps, No Mole Changes, No Mottling, No Nail Changes, No Pruritus, No Rash, No Skin Lesion Changes, No Other, No Acne Physical Exam General: Alert, Oriented X3, Cooperative, No acute distress HEENT: Atraumatic, PERRLA, EOMI Lungs: Clear to auscultation, Normal air movement Heart: RRR, no thrills, no rubs Breasts: Not examined Abdomen: Normal bowel sounds, Soft Rectal Exam: not examined Extremities: No cyanosis Neuro: Normal speech, Cranial nerves 3-12 NL Psych/Mental Status: Mental status NL, Mood NL Vitals Vitals Vital Signs Date Time Temp Pulse Resp B/P (MAP) Pulse Ox O2 Delivery O2 Flow Rate FiO2 09/10/19 10:49 98.8 64 18 143/60 (87) 98 Room Air 98.8 Labs Labs Laboratory Tests Test 09/09/19 21:33 09/10/19 05:15 09/10/19 10:28 Glucose (Fingerstick) 101 mg/dL (70-99) 186 mg/dL (70-99) Sodium Level 143 mmol/L (136-145) Potassium Level 3.9 mmol/L (3.5-5.1) Chloride Level 106 mmol/L (98-107) Carbon Dioxide Level 30 mmol/L (21-32) Anion Gap 7 (6-14) Blood Urea Nitrogen 13 mg/dL (7-20) Creatinine 0.9 mg/dL (0.6-1.0) Estimated GFR (Cockcroft-Gault) 76.3 Glucose Level 113 mg/dL (70-99) Calcium Level 8.7 mg/dL (8.5-10.1) Laboratory Tests Test 09/09/19 21:33 09/10/19 05:15 09/10/19 10:28 Glucose (Fingerstick) 101 mg/dL (70-99) 186 mg/dL (70-99) Sodium Level 143 mmol/L (136-145) Potassium Level 3.9 mmol/L (3.5-5.1) Chloride Level 106 mmol/L (98-107) Carbon Dioxide Level 30 mmol/L (21-32) Anion Gap 7 (6-14) Blood Urea Nitrogen 13 mg/dL (7-20) Creatinine 0.9 mg/dL (0.6-1.0) Estimated GFR (Cockcroft-Gault) 76.3 Glucose Level 113 mg/dL (70-99) Calcium Level 8.7 mg/dL (8.5-10.1) Images Images PATIENT: RIAN AMEZQUITA ACCOUNT: [id number] : 1955 LOCATION: [address] [place] [address] AGE: 64 SEX: F EXAM STATUS: ADM IN ORD. PHYSICIAN: CHEVY IRELAND MD REASON: dizziness, CALL REPORT TO [facility] AT [phone] PROCEDURE: BRAIN W/O CONTRAST BRAIN W/O CONTRAST History: Dizziness Technique: Multiplanar, multi sequential MR imaging was performed of the brain without contrast. Comparison: MRI May 18, 2018. Head CT May 17, 2018 Findings: Multiple small right greater than left cerebellar infarcts. Several left inferior medial occipital lobe infarcts. Right lateral pontine infarcts. Incomplete FLAIR suppression within the left occipital region likely related to artifact or segmental oxygen. No intracranial hemorrhage. No significant mass effect. No hydrocephalus. Additional mild foci of T2/FLAIR hyperintensities within the hemispheric white matter, most often due to chronic microvascular ischemia. Imaged orbits are unremarkable. Imaged paranasal sinuses and mastoid air cells are clear. Impression: 1. Multifocal acute infarcts within the right nicole, left occipital lobe and right greater than left cerebellum. Findings may relate to embolic etiology. If concern for basilar artery compromise CT angiogram can further assess. 2. Incomplete FLAIR suppression within the left occipital region, may relate to artifact or subtle minimal oxygen. If concern for infection MRI post contrast imaging can better assess. FOR INTERNAL CODING PURPOSES Mitral Valve MV E Velocity 101.3cm/s MV E Peak Gr. 4mmHg MV A Velocity 78.9cm/s MV PHT 46ms E/A Ratio 1.3 MVA (PHT) 4.78cm2 Tricuspid Valve TR P. Velocity 403cm/s RAP ESTIMATE 3mmHg TR Peak Gr. 65mmHg RVSP 68mmHg LEFT VENTRICLE The left ventricle is normal size. There is mild concentric left ventricular hypertrophy. The left ventricular systolic function is normal. The Ejection Fraction is 60-65%. There is normal LV segmental wall motion. RIGHT VENTRICLE The right ventricle is normal size. The right ventricular systolic function is normal. ATRIA The left atrium is mildly dilated. The right atrium size is normal. The interatrial septum is intact with no evidence for an atrial septal defect or patent foramen ovale as noted on 2-D or Doppler imaging. Injection of bubbles documented no interatrial shunt. AORTIC VALVE The aortic valve is calcified but opens well. Doppler and Color Flow revealed no significant aortic regurgitation. There is no significant aortic valvular genaro nosis. MITRAL VALVE The mitral valve is calcified but opens well. There is no evidence of mitral valve prolapse. There is no mitral valve stenosis. Doppler and Color-flow revealed trace to mild mitral regurgitation. TRICUSPID VALVE The tricuspid valve is normal in structure and function. Doppler and Color Flow revealed mild tricuspid regurgitation. There is moderate-severe pulmonary hypertension. The PA pressure was estimated at 68 mmHg. There is no tricuspid valve stenosis. PULMONIC VALVE The pulmonic valve is not well visualized. Doppler and Color Flow revealed trace pulmonic valvular regurgitation. There is no pulmonic valvular stenosis. GREAT VESSELS The aortic root is normal in size. The ascending aorta is normal in size. The IVC is normal in size and collapses >50% with inspiration. PERICARDIAL EFFUSION There is no evidence of significant pericardial effusion. Critical Notification Critical Value: No <Conclusion> The left ventricular systolic function is normal. The Ejection Fraction is 60-65%. There is normal LV segmental wall motion. Trace to mild mitral regurgitation. Mild tricuspid regurgitation. The PA pressure was estimated at 68 mmHg. There is no evidence of significant pericardial effusion. Injection of bubbles documented no interatrial shunt. 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 Goal 1: Pt will tolerate functional activities for * 20min Goal 1 Position: * Seated * Standing Goal 2: Pt will be able to complete: * Grooming at sink Goal 2 Equipment: * Front Wheeled Walker Goal 2 Required Assistance Level * Independent * Seated * Standing Goal 3: Pt will be able to complete: * LE dsg/socks Goal 3 Equipment * Adaptive Eating Equipment * Front Wheeled Walker * Long Handled Equipment * Sock Aide Goal 3 Required Assistance Level * Independent * Seated * Standing Goal 4 - Pt will be able to complete: * Toilet transfer Goal 4 Equipment * Front Wheeled Walker Goal 4 Required Assistance Level * Independent * Seated Goal 6 * Pt to scan to R during ADL's and functional mobility to incorporate full visual field. Goal 7 * Pt to be Ind RW safe object retrieval in rm hi/low by DC. Skilled interventions required to achieve goals * Activity mark. training * ADL training/education * Adaptive equip. training * Functional mobility train * Transfer training for ADL Number of Days/Weeks for length of Stay, or Until Goals Met * 6w2 Discharge Recommendations * Halfway Unit Discharge Recommendation Comments * continue to asess changing needs. VTE Prophylaxis Ordered VTE Prophylaxis Devices: No VTE Pharmacological Prophylaxi: Yes Assessment/Plan Assessment/Plan impression dIZZINESS/ VERTIGO high fall risk HTN Multifocal acute infarcts within the right nicole, left occipital lobe and right greater than left cerebellum. Findings may relate to embolic etiology. If concern for basilar artery compromise CT angiogram can further assess. cardiomyopathy\ htn hyperlipidemia The Ejection Fraction is 60-65%. There is normal LV segmental wall motion. Trace to mild mitral regurgitation. Mild tricuspid regurgitation. 2018 PA pressure was estimated at 68 mmHg. C/W SEVERE PULM HTN HX 2018 Hemicolectomy with Silvina's pouch and flexible sigmoidoscopy. PLAN admit tele NEUROLOGY CONSULT TELE NEUROCHECKS Q 4 HRS PT/OT may need vestibular therapy ECHO CARDIOLOGY CONSULT MRI of the brain Rehabilitation screening Skilled interventions required to achieve goals * Activity mark. training * ADL training/education * Adaptive equip. training * Functional mobility train * Transfer training for ADL Number of Days/Weeks for length of Stay, or Until Goals Met * 6w2 Discharge Recommendations * Halfway Unit * 77 MIN PT EXAM, CHART REVIEW, > 50% of time spent with exam, chart review, pt care coordination LESLY PATE MD Sep 10, 2019 10:54
--- NOTE | 2019-09-10 13:02 | RAD ---
BRAIN W/O CONTRAST History: Dizziness Technique: Multiplanar, multi sequential MR imaging was performed of the brain without contrast. Comparison: MRI May 18, 2018. Head CT May 17, 2018 Findings: Multiple small right greater than left cerebellar infarcts. Several left inferior medial occipital lobe infarcts. Right lateral pontine infarcts. Incomplete FLAIR suppression within the left occipital region likely related to artifact or segmental oxygen. No intracranial hemorrhage. No significant mass effect. No hydrocephalus. Additional mild foci of T2/FLAIR hyperintensities within the hemispheric white matter, most often due to chronic microvascular ischemia. Imaged orbits are unremarkable. Imaged paranasal sinuses and mastoid air cells are clear. Impression: 1. Multifocal acute infarcts within the right nicole, left occipital lobe and right greater than left cerebellum. Findings may relate to embolic etiology. If concern for basilar artery compromise CT angiogram can further assess. 2. Incomplete FLAIR suppression within the left occipital region, may relate to artifact or subtle minimal oxygen. If concern for infection MRI post contrast imaging can better assess. FOR INTERNAL CODING PURPOSES Critical result: Findings discussed with patient's nursing team at 09/10/2019 12:51 PM. RESULT CODE: (C) Electronically signed by: Go Romero DO (09/10/2019 12:59 PM) [id number]
[2019-09-10 13:26] LABS: BASO % 1 % (0-3); EOS # 0.1 x10^3/uL (0.0-0.7); EOS % 2 % (0-3); HEMATOCRIT 39.7 % (36.0-47.0); HEMOGLOBIN 12.8 g/dL (12.0-15.5); LYMPH # 1.8 x10^3/uL (1.0-4.8); LYMPH % 33 % (24-48); MEAN CORPUSCULAR HEMOGLOBIN 27 pg (25-35); MEAN CORPUSCULAR HGB CONC 32 g/dL (31-37); MEAN CORPUSCULAR VOLUME 83 fL (79-100); MONO # 0.4 x10^3/uL (0.0-1.1); MONO % 8 % (0-9); NEUT % 56 % (31-73); PLATELET COUNT 266 x10^3/uL (140-400); RED BLOOD COUNT 4.77 x10^6/uL (3.50-5.40); RED CELL DISTRIBUTION WIDTH 16.1 % (11.5-14.5); WHITE BLOOD COUNT 5.4 x10^3/uL (4.0-11.0)
[2019-09-10] MEDS ORDERED: ASPIRIN RECTAL 300 MG SUPP. PR PRN (13:30)
[2019-09-10] MEDS ORDERED: ACETAMINOPHEN 325 MG TABLET. PO PRN (13:30)
[2019-09-10] MEDS ORDERED: ACETAMINOPHEN 650 MG SUPP.RECT. PR PRN (13:30)
[2019-09-10] MEDS ORDERED: CONTRAST GIVEN. MC PRN (13:45)
[2019-09-10] MEDS ORDERED: IOHEXOL 350 MG/ML 100 ML VIAL. IV ONE (13:45)
--- NOTE | 2019-09-10 14:08 | NUR ---
SS following for discharge planning. SS reviewed pt chart. Pt is from home with spouse and is currently on room air. PT/OT ordered. SS will continue to follow for discharge planning.
--- NOTE | 2019-09-10 14:31 | NUR ---
Bedside swallow done at [facility], swallowing intact. Patient did not complain of any swallowing issues.
[2019-09-10 15:30] VITALS: BP 126/62
[2019-09-10] MEDS: IV NORMAL SALINE 1000ML BAG 1,000 ML IV SCH (15:31)
[2019-09-10] MEDS ORDERED: ONDANSETRON PF 4 MG/2 ML VIAL. IV PRN (15:45)
[2019-09-10] MEDS ORDERED: cloNIDine HCL 0.1 MG TABLET PO PRN (15:45)
[2019-09-10] MEDS ORDERED: ACETAMINOPHEN 650 MG/20.3 ML SOLUTION. GT PRN (15:45)
[2019-09-10] MEDS ORDERED: DOCUSATE SODIUM 100 MG CAPSULE. PO PRN (15:45)
[2019-09-10] MEDS ORDERED: ALBUTEROL SULFATE 2.5 MG/3 ML NEBU. NEB PRN (15:45)
[2019-09-10] MEDS ORDERED: LORazepam 0.5 MG TABLET PO PRN (15:45)
[2019-09-10] MEDS ORDERED: guaiFENesin ORAL 200 MG/10 ML LIQUID. PO PRN (15:45)
[2019-09-10] MEDS ORDERED: MAG HYDROX/ALUMINUM HYD/SIMETH 30 ML ORAL.SUSP PO PRN (15:45)
[2019-09-10] MEDS ORDERED: ZOLPIDEM 5 MG TABLET. PO PRN (15:45)
[2019-09-10] MEDS ORDERED: 0.9 % SODIUM CHLORIDE 10 ML DISP.SYRIN. IV PRN (15:45)
--- NOTE | 2019-09-10 16:15 | RAD ---
STUDY: CT angiography of the head and neck INDICATION: Multiple posterior circulation strokes. COMPARISON: No prior angiographic evaluation is available for review. TECHNIQUE: Axial CT imaging of the head and neck utilizing angiography protocol and performed after the intravenous administration of 75 cc Omnipaque 350 contrast. Multiplanar reformats and 3D MIP acquisitions were obtained. Encountered areas of stenosis are measured per NASCET criteria. One or more of the following individualized dose reduction techniques were utilized for this examination: 1. Automated exposure control 2. Adjustment of the mA and/or kV according to patient size 3. Use of iterative reconstruction technique. FINDINGS: CTA NECK: Three vessel arch. No stenosis at the great vessel origins. Retropharyngeal course of the right common carotid artery. Mild calcific plaque at the left proximal internal carotid artery. No flow-limiting stenosis at either carotid bifurcation. No flow-limiting stenosis in either vertebral artery origin. No dissection, flow-limiting stenosis or occlusion seen throughout either extracranial vertebral artery. Regions of tortuosity noted. CTA HEAD: Both vertebral arteries contribute to basilar flow. The basilar artery is diminutive in size and limited progressively narrows to a short segment of severe stenosis approximately 1.4 cm from the proximal aspect of the basilar artery with the stenosis extending over a length of approximately 2.5 mm. Patency of the basilar artery distal to the stenosis. The arterial branches off the vertebral and basilar arteries are diminutive and not well visualized throughout the majority of their course. The right P1 segment is not well delineated. There appears to be reconstitution of posterior cerebral artery flow on the right distally but it is difficult to differentiate arteries from veins given bolus timing. It appears as if the left posterior cerebral artery courses to the right of midline prior to taking its expected course at the P2 segment and beyond though again it is difficult to distinguish arteries from veins in this region. Bilateral carotid siphon atherosclerotic calcifications. Mild to moderate right and more mild left regions of intracranial internal carotid artery narrowing seen distal to the cavernous segments. No branch vessel occlusion seen throughout the middle or anterior cerebral arteries bilaterally. Patent major intracerebral veins and dural sinuses noting a hypoplastic left transverse sinus. MISCELLANEOUS: Advanced multifocal odontogenic disease. Multifocal degenerative changes throughout the cervical spine as well as involving the upper thoracic spine. IMPRESSION: 1. Severe short segment stenosis of the basilar artery seen approximately 1.4 cm from the origin. The segment of severe stenosis measures approximately 2.5 cm in length. 2. Absent visualization of the right posterior artery P1 segment. There appears to be opacification at the P2 segment region and beyond though the intracranial portion of the study is made difficult by bolus timing with extensive venous contamination. Irregular course of the left posterior cerebral artery with the P1 segment appearing to extend to the right of midline prior to taking its expected course more distally. Again the peripheral left posterior cerebral artery segments are not well evaluated due to venous contamination. 3. Poorly evaluated arterial branches off the vertebral and basilar artery. Evaluation for any peripheral occlusion of these small vessels is limited. 4. No flow-limiting stenosis or branch vessel occlusion seen throughout the middle or anterior cerebral arteries. Mild to moderate right and mild left regions of intracranial internal carotid artery narrowing. 5. No flow-limiting stenosis, dissection or occlusion throughout the major extracranial arteries. 6. Additional chronic observations as above. Electronically signed by: JEANETH ZAMAN MD (09/10/2019 4:12 PM) [facility]
--- NOTE | 2019-09-10 16:37 | PDOC2 ---
CARDIAC CONSULT DATE OF CONSULT Date of Consult DATE: 09/10/19 TIME: 14:18 REASON FOR CONSULT Reason for Consult: Severe pulmonary HTN, acute CVA REFERRING PHYSICIAN Referring Physician: Fullbright SOURCE Source: Chart review, Patient HISTORY OF PRESENT ILLNESS HISTORY OF PRESENT ILLNESS This is a pleasant 64 yo female admitted for complains of dizziness and vertigo. Reports that since early this week she has been having the latter symptoms. She went to her PCP and was given meds for vertigo. This got worse and actually started having tingling both her fingertips and weakness to both of her legs and had blurred vision to her right eye. No tinnitus but felt dizzy and could not get her balance. No noted coughing with swallowing and no dysarthria. She has had stroke before and no past hx of AFIB or Atrial flutter. At this point there is no unilateral weakness and upon further imaging she has been noted for brainstem stroke. She fell yesterday due to the imbalance but no traumatic injury as she landed softly as she hit the bed going down. No associated chest pain or palpitations. PAST MEDICAL HISTORY Cardiovascular: CHF, HTN, Hyperlipidemia, Pulmonary hypertension Pulmonary: COPD, Other (ZAHIDA) CENTRAL NERVOUS SYSTEM: CVA GI: GERD Heme/Onc: Cancer (colon) Renal/: Chronic renal insuff, UTI Endocrine: Diabetes PAST SURGICAL HISTORY Past Surgical History: Hernia Repair, Hysterectomy, Colon Resection (with ostomy placement) FAMILY HISTORY Family History noncontributory to CV SOCIAL HISTORY Smoke: Quit ALCOHOL: none Drugs: None Lives: with Family CURRENT MEDICATIONS CURRENT MEDICATIONS Current Medications Medications (Trade) Dose Ordered Sig/Mele Route PRN Reason Start Time Stop Time Status Last Admin Dose Admin Enoxaparin Sodium (Lovenox 40mg Syringe) 40 mg DAILY SQ 09/10/19 09:00 09/10/19 15:26 DC 09/10/19 09:56 Insulin Human Lispro (HumaLOG) 0-7 UNITS TIDACHC SQ 09/09/19 21:30 09/10/19 13:46 Aspirin (Radha Aspirin) 325 mg DAILYWBKFT PO 09/10/19 08:00 09/10/19 13:41 DC 09/10/19 09:55 Clonidine HCl (Catapres) 0.2 mg BID PO 09/09/19 21:30 09/10/19 09:53 Metformin HCl (Glucophage) 500 mg BIDWMEALS PO 09/10/19 08:00 09/10/19 13:42 DC 09/10/19 09:55 Metoprolol Tartrate (Lopressor) 50 mg BID PO 09/09/19 21:30 09/10/19 09:55 Oxybutynin Chloride (Ditropan) 5 mg TID PO 09/09/19 21:30 09/10/19 09:55 Citalopram Hydrobromide (CeleXA) 20 mg DAILY PO 09/10/19 09:00 09/10/19 09:56 Losartan Potassium (Cozaar) 100 mg DAILY PO 09/10/19 09:00 09/10/19 09:53 Amlodipine Besylate (Norvasc) 10 mg DAILY PO 09/10/19 09:00 09/10/19 09:54 Hydrochlorothiazide (Hydrodiuril) 25 mg DAILY PO 09/10/19 09:00 09/10/19 09:54 Influenza Virus Vaccine Quadrival (Afluria Quad 2019-20 (3yr Up) Syringe) 0.5 ml ONCE ONCE VAX IM 09/10/19 09:00 09/10/19 09:01 DC 09/10/19 10:06 Iohexol (Omnipaque 350 Mg/ml) 75 ml 1X ONCE IV 09/10/19 13:45 09/10/19 13:46 DC 09/10/19 15:22 ALLERGIES ALLERGIES: Coded Allergies: No Known Drug Allergies (Unverified , 08/06/19) ROS Review of System 14 point ROS evaluated with pertinent positives noted per HPI PHYSICAL EXAM General: Alert, Oriented X3, Cooperative, No acute distress HEENT: Atraumatic, Mucous membr. moist/pink Lungs: Clear to auscultation, Normal air movement Heart: Regular rate (SB ), Normal S1, Normal S2, Other (2/6 systolic murmur to LLS border) Abdomen: Soft, No tenderness Extremities: No cyanosis, No edema Skin: No breakdown, No significant lesion Neuro: Normal speech, Sensation intact Psych/Mental Status: Mental status NL, Mood NL MUSCULOSKELETAL: Osteoarthritic changes both hands VITALS/I&O VITALS/I&O: Vital Signs Date Time Temp Pulse Resp B/P (MAP) Pulse Ox O2 Delivery O2 Flow Rate FiO2 09/10/19 15:30 97.8 48 18 126/62 (83) 95 Room Air 97.8 I & O 09/09/19 09/10/19 09/10/19 17:00 01:00 09:00 Intake Total 600 ml 0 ml Balance 600 ml 0 ml LABS Lab: Laboratory Tests Test 09/09/19 21:33 09/10/19 05:15 09/10/19 10:28 Glucose (Fingerstick) 101 mg/dL (70-99) H 186 mg/dL (70-99) H White Blood Count 5.4 x10^3/uL (4.0-11.0) Red Blood Count 4.77 x10^6/uL (3.50-5.40) Hemoglobin 12.8 g/dL (12.0-15.5) Hematocrit 39.7 % (36.0-47.0) Mean Corpuscular Volume 83 fL (79-100) Mean Corpuscular Hemoglobin 27 pg (25-35) Mean Corpuscular Hemoglobin Concent 32 g/dL (31-37) Red Cell Distribution Width 16.1 % (11.5-14.5) H Platelet Count 266 x10^3/uL (140-400) Neutrophils (%) (Auto) 56 % (31-73) Lymphocytes (%) (Auto) 33 % (24-48) Monocytes (%) (Auto) 8 % (0-9) Eosinophils (%) (Auto) 2 % (0-3) Basophils (%) (Auto) 1 % (0-3) Neutrophils # (Auto) 3.0 x10^3/uL (1.8-7.7) Lymphocytes # (Auto) 1.8 x10^3/uL (1.0-4.8) Monocytes # (Auto) 0.4 x10^3/uL (0.0-1.1) Eosinophils # (Auto) 0.1 x10^3/uL (0.0-0.7) Basophils # (Auto) 0.0 x10^3/uL (0.0-0.2) Sodium Level 143 mmol/L (136-145) Potassium Level 3.9 mmol/L (3.5-5.1) Chloride Level 106 mmol/L (98-107) Carbon Dioxide Level 30 mmol/L (21-32) Anion Gap 7 (6-14) Blood Urea Nitrogen 13 mg/dL (7-20) Creatinine 0.9 mg/dL (0.6-1.0) Estimated GFR (Cockcroft-Gault) 76.3 Glucose Level 113 mg/dL (70-99) H Calcium Level 8.7 mg/dL (8.5-10.1) Laboratory Tests 09/10/19 05:15 Laboratory Tests 09/10/19 05:15 ECHOCARDIOGRAM ECHOCARDIOGRAM <Conclusion> The left ventricular systolic function is normal. The Ejection Fraction is 60-65%. There is normal LV segmental wall motion. Trace to mild mitral regurgitation. Mild tricuspid regurgitation. The PA pressure was estimated at 68 mmHg. There is no evidence of significant pericardial effusion. Injection of bubbles documented no interatrial shunt. DATE: 05/18/18 1554 HEART CATH HEART CATH CORONARY ANGIOGRAPHY: LM is a large caliber vessel with normal angiographic appearance. LAD is a large caliber vessel with normal angiographic appearance. Ramus is a moderate caliber vessel with normal angiographic appearance. LCx is a moderate caliber non-dominant vessel with normal angiographic appearance. OM1 is a moderate caliber vessel with normal angiographic appearance. RCA is a large caliber dominant vessel with normal angiographic appearance. Conclusion 1. Normal left ventricular filling pressure. 2. No significant obstructive coronary disease. Recommendations Aggressive Medical Therapy DATE: 11/20/17 1540 ASSESSMENT/PLAN ASSESSMENT/PLAN 1. Acute brainstem/left occipital/cerebellar stroke notable for basilar stenosis and past hx of stroke: culprit for his dizziness and vertigo 2. Secondary severe pulmonary HTN with COPD and ZAHIDA 3. Chronic diastolic CHF: compensated 4. HTN 5. DM2/HLP 6. Morbid obesity 7. CKD3 8. Sinus bradycardia: doubt this contributed to her dizziness. lowest at mid40s with associated use of BB but no pauses. No ectopies so far. Recommendations 1. TTE and EKG pending. Monitor rhythm for any arrhythmia cause. MABLE a consideration as well if suspicion for cardioembolic etiology is high and outpt event monitor if no conclusive contributing arrhythmia. . 2. Follow neurology input 3. Supportive care. 4. Secondary prevention measures. OK with low dose clonidine but will need to hold BB due to bradycardia. DC PRN clonidine and will place on hydralazine PRN per neuro BP parameters. Currently on norvasc, losartan as well, will clarify with neuro as far as BP parameters, discussed with RN. BONITA LUX APRN Sep 10, 2019 16:37
[2019-09-10] MEDS ORDERED: hydrALAZINE 20 MG/ML VIAL. IVP PRN (18:00)
--- NOTE | 2019-09-10 19:01 | EKG ---
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
[2019-09-10 19:51] VITALS: BP 108/56
[2019-09-10] MEDS: ATORVASTATIN CALCIUM 40 MG TABLET. PO SCH (22:22)
[2019-09-10] MEDS: HYDROcodone/APAP 10/325 1 TAB TABLET PO PRN (22:23)
[2019-09-10] MEDS: ENOXAPARIN 40 MG/0.4 ML SYRINGE. SQ SCH (22:24)
[2019-09-10 23:36] VITALS: BP 143/75
[2019-09-11] VITALS (8 sets, daily range): BP systolic 123–157; BP diastolic 61–93
[2019-09-11] MEDS: ACETAMINOPHEN 325 MG TABLET. PO PRN (03:41)
[2019-09-11 05:45] LABS: CHOLESTEROL/HDL RATIO 4.5
[2019-09-11] MEDS: IV NORMAL SALINE 1000ML BAG 1,000 ML IV SCH ×2 (05:49→20:11)
[2019-09-11] MEDS: INSULIN LISPRO 300 UNITS/3 ML VIAL. SQ SCH ×4 (07:30→21:00)
[2019-09-11] MEDS ORDERED: ENOXAPARIN 40 MG/0.4 ML SYRINGE. SQ SCH (09:00)
[2019-09-11] MEDS: hydroCHLOROthiazide 25 MG TABLET PO SCH (09:35)
[2019-09-11] MEDS: LOSARTAN POTASSIUM 50 MG TABLET. PO SCH (09:35)
[2019-09-11] MEDS: cloNIDine HCL 0.1 MG TABLET PO SCH ×2 (09:36→20:12)
[2019-09-11] MEDS: amLODIPine BESYLATE 10 MG TABLET PO SCH (09:36)
[2019-09-11] MEDS: OXYBUTYNIN CHLORIDE 5 MG TABLET PO SCH ×3 (09:36→20:12)
[2019-09-11] MEDS: ENOXAPARIN 40 MG/0.4 ML SYRINGE. SQ SCH ×2 (09:37→20:11)
[2019-09-11] MEDS: CITALOPRAM 20 MG TABLET. PO SCH (09:37)
[2019-09-11] MEDS: ASPIRIN ENTERIC COATED 325 MG TABLET.DR. PO SCH (09:37)
--- NOTE | 2019-09-11 09:45 | PDOC ---
PROGRESS NOTES History of Present Illness History of Present Illness VTE Prophylaxis Ordered VTE Prophylaxis Devices: No VTE Pharmacological Prophylaxi: Yes Assessment/Plan Assessment/Plan impression dIZZINESS/ VERTIGO high fall risk HTN Multifocal acute infarcts within the right nicole, left occipital lobe and right greater than left cerebellum. Findings may relate to embolic etiology. If concern for basilar artery compromise CT angiogram can further assess. cardiomyopathy\ htn hyperlipidemia The Ejection Fraction is 60-65%. There is normal LV segmental wall motion. Trace to mild mitral regurgitation. Mild tricuspid regurgitation. 2018 PA pressure was estimated at 68 mmHg. C/W SEVERE PULM HTN HX 2018 Hemicolectomy with Silvina's pouch and flexible sigmoidoscopy. PLAN admit tele NEUROLOGY CONSULT TELE NEUROCHECKS Q 4 HRS PT/OT may need vestibular therapy ECHO CARDIOLOGY CONSULT MRI of the brain Rehabilitation screening bubble study Skilled interventions required to achieve goals * Activity mark. training * ADL training/education * Adaptive equip. training * Functional mobility train * Transfer training for ADL Number of Days/Weeks for length of Stay, or Until Goals Met * 6w2 Discharge Recommendations * Shelter Unit * 37 MIN PT EXAM, CHART REVIEW, > 50% of time spent with exam, chart review, pt care coordination Vitals Vitals Vital Signs Date Time Temp Pulse Resp B/P (MAP) Pulse Ox O2 Delivery O2 Flow Rate FiO2 09/11/19 09:36 48 127/61 09/11/19 07:44 98.7 20 99 Room Air 98.7 Physical Exam General: Alert, Oriented X3, Cooperative, No acute distress Heart: Regular rate (SB ), Normal S1, Normal S2, Other (2/6 systolic murmur to LLS border) Lungs: Clear Abdomen: Soft, No tenderness Extremities: No cyanosis, No edema Skin: No breakdown, No significant lesion Labs LABS Laboratory Tests Test 09/10/19 10:28 09/10/19 16:47 09/10/19 20:49 09/11/19 04:30 Glucose (Fingerstick) 186 mg/dL (70-99) 83 mg/dL (70-99) 103 mg/dL (70-99) Triglycerides Level 87 mg/dL (0-150) Cholesterol Level 183 mg/dL (0-200) LDL Cholesterol, Calculated 125 mg/dL (0-100) VLDL Cholesterol, Calculated 17 mg/dL (0-40) Non-HDL Cholesterol Calculated 142 mg/dL (0-129) HDL Cholesterol 41 mg/dL (40-60) Cholesterol/HDL Ratio 4.5 Test 09/11/19 07:20 Glucose (Fingerstick) 114 mg/dL (70-99) Comment Review of Relevant I have reviewed the following items brenda (where applicable) has been applied. Labs Laboratory Tests Test 09/09/19 21:33 09/10/19 05:15 09/10/19 10:28 09/10/19 16:47 Glucose (Fingerstick) 101 mg/dL (70-99) 186 mg/dL (70-99) 83 mg/dL (70-99) White Blood Count 5.4 x10^3/uL (4.0-11.0) Red Blood Count 4.77 x10^6/uL (3.50-5.40) Hemoglobin 12.8 g/dL (12.0-15.5) Hematocrit 39.7 % (36.0-47.0) Mean Corpuscular Volume 83 fL (79-100) Mean Corpuscular Hemoglobin 27 pg (25-35) Mean Corpuscular Hemoglobin Concent 32 g/dL (31-37) Red Cell Distribution Width 16.1 % (11.5-14.5) Platelet Count 266 x10^3/uL (140-400) Neutrophils (%) (Auto) 56 % (31-73) Lymphocytes (%) (Auto) 33 % (24-48) Monocytes (%) (Auto) 8 % (0-9) Eosinophils (%) (Auto) 2 % (0-3) Basophils (%) (Auto) 1 % (0-3) Neutrophils # (Auto) 3.0 x10^3/uL (1.8-7.7) Lymphocytes # (Auto) 1.8 x10^3/uL (1.0-4.8) Monocytes # (Auto) 0.4 x10^3/uL (0.0-1.1) Eosinophils # (Auto) 0.1 x10^3/uL (0.0-0.7) Basophils # (Auto) 0.0 x10^3/uL (0.0-0.2) Sodium Level 143 mmol/L (136-145) Potassium Level 3.9 mmol/L (3.5-5.1) Chloride Level 106 mmol/L (98-107) Carbon Dioxide Level 30 mmol/L (21-32) Anion Gap 7 (6-14) Blood Urea Nitrogen 13 mg/dL (7-20) Creatinine 0.9 mg/dL (0.6-1.0) Estimated GFR (Cockcroft-Gault) 76.3 Glucose Level 113 mg/dL (70-99) Calcium Level 8.7 mg/dL (8.5-10.1) Thyroid Stimulating Hormone (TSH) 1.180 uIU/mL (0.358-3.74) Test 09/10/19 20:49 09/11/19 04:30 09/11/19 07:20 Glucose (Fingerstick) 103 mg/dL (70-99) 114 mg/dL (70-99) Triglycerides Level 87 mg/dL (0-150) Cholesterol Level 183 mg/dL (0-200) LDL Cholesterol, Calculated 125 mg/dL (0-100) VLDL Cholesterol, Calculated 17 mg/dL (0-40) Non-HDL Cholesterol Calculated 142 mg/dL (0-129) HDL Cholesterol 41 mg/dL (40-60) Cholesterol/HDL Ratio 4.5 Laboratory Tests Test 09/10/19 10:28 09/10/19 16:47 09/10/19 20:49 09/11/19 04:30 Glucose (Fingerstick) 186 mg/dL (70-99) 83 mg/dL (70-99) 103 mg/dL (70-99) Triglycerides Level 87 mg/dL (0-150) Cholesterol Level 183 mg/dL (0-200) LDL Cholesterol, Calculated 125 mg/dL (0-100) VLDL Cholesterol, Calculated 17 mg/dL (0-40) Non-HDL Cholesterol Calculated 142 mg/dL (0-129) HDL Cholesterol 41 mg/dL (40-60) Cholesterol/HDL Ratio 4.5 Test 09/11/19 07:20 Glucose (Fingerstick) 114 mg/dL (70-99) Medications Current Medications Ondansetron HCl (Zofran) 4 mg PRN Q4HRS PRN IV NAUSEA/VOMITING; Start 09/09/19 at 21:15; Stop 09/10/19 at 16:02; Status DC Acetaminophen (Tylenol) 650 mg PRN Q4HRS PRN PO TEMP OVER 100.4F OR MILD PAIN; Start 09/09/19 at 21:15; Stop 09/10/19 at 13:43; Status DC Clonidine HCl (Catapres) 0.1 mg PRN Q6HRS PRN PO SBP>160 OR DBP>90; Start 09/09/19 at 21:15; Stop 09/10/19 at 16:00; Status DC Docusate Sodium (Colace) 100 mg PRN BID PRN PO CONSTIPATION; Start 09/09/19 at 21:15; Stop 09/10/19 at 16:02; Status DC Enoxaparin Sodium (Lovenox 40mg Syringe) 40 mg DAILY SQ Last administered on 09/10/19at 09:56; Start 09/10/19 at 09:00; Stop 09/10/19 at 15:26; Status DC Labetalol HCl (Normodyne Iv Push) 10 mg PRN Q2HR PRN IVP HYPERTENSION; Start 09/09/19 at 21:15 Insulin Human Lispro (HumaLOG) 0-7 UNITS TIDACHC SQ Last administered on 09/10/19at 13:46; Start 09/09/19 at 21:30 Dextrose (Dextrose 50%-Water Syringe) 12.5 gm PRN Q15MIN PRN IV SEE COMMENTS; Start 09/09/19 at 21:15 Albuterol Sulfate (Ventolin Neb Soln) 2.5 mg PRN Q4HRS PRN INH WHEEZING; Start 09/09/19 at 21:15; Stop 09/10/19 at 16:01; Status DC Aspirin (Radha Aspirin) 325 mg DAILYWBKFT PO Last administered on 09/10/19at 09:55; Start 09/10/19 at 08:00; Stop 09/10/19 at 13:41; Status DC Atorvastatin Calcium (Lipitor) 40 mg QHS PO Last administered on 09/10/19at 22:22; Start 09/09/19 at 21:30 Clonidine HCl (Catapres) 0.2 mg BID PO Last administered on 09/11/19at 09:36; Start 09/09/19 at 21:30 Acetaminophen/ Hydrocodone Bitart (Lortab 10/325) 1 tab PRN QHS PRN PO pain Last administered on 09/10/19at 22:23; Start 09/09/19 at 21:15 Metformin HCl (Glucophage) 500 mg BIDWMEALS PO Last administered on 09/10/19 09:55; Start 09/10/19 at 08:00; Stop 09/10/19 at 13:42; Status DC Metoprolol Tartrate (Lopressor) 50 mg BID PO Last administered on 09/10/19 09:55; Start 09/09/19 at 21:30; Stop 09/10/19 at 17:48; Status DC Oxybutynin Chloride (Ditropan) 5 mg TID PO Last administered on 09/11/19 09:36; Start 09/09/19 at 21:30 Citalopram Hydrobromide (CeleXA) 20 mg DAILY PO Last administered on 09/11/19 09:37; Start 09/10/19 at 09:00 Non-Formulary Medication (Olmesartan/ Amlodipin/ Hcthiazid (Tribenzor 40-10-25 Mg Tablet)) 1 tab DAILY PO ; Start 09/10/19 at 09:00; Status UNV Losartan Potassium (Cozaar) 100 mg DAILY PO Last administered on 09/11/19 09:35; Start 09/10/19 at 09:00 Amlodipine Besylate (Norvasc) 10 mg DAILY PO Last administered on 09/11/19 09:36; Start 09/10/19 at 09:00 Hydrochlorothiazide (Hydrodiuril) 25 mg DAILY PO Last administered on 09/11/19 09:35; Start 09/10/19 at 09:00 Influenza Virus Vaccine Quadrival (Afluria Quad 2019-20 (3yr Up) Syringe) 0.5 ml ONCE ONCE VAX IM Last administered on 09/10/19at 10:06; Start 09/10/19 at 09:00; Stop 09/10/19 at 09:01; Status DC Enoxaparin Sodium (Lovenox 40mg Syringe) 40 mg Q24H SQ ; Start 09/10/19 at 13:30; Status UNV Acetaminophen (Tylenol) 650 mg PRN Q6HRS PRN PO TEMP > 100.4F; Start 09/10/19 at 13:30; Stop 09/10/19 at 16:01; Status DC Acetaminophen (Tylenol Supp) 650 mg PRN Q4HRS PRN GA TEMP > 100.4F; Start 09/10/19 at 13:30 Aspirin (Ecotrin) 325 mg DAILYWBKFT PO Last administered on 09/11/19at 09:37; Start 09/11/19 at 08:00 Aspirin (Aspirin Rectal Supp) 300 mg PRN DAILY PRN GA IF UNABLE TO TAKE PO; Start 09/10/19 at 13:30 Iohexol (Omnipaque 350 Mg/ml) 75 ml 1X ONCE IV Last administered on 09/10/19at 15:22; Start 09/10/19 at 13:45; Stop 09/10/19 at 13:46; Status DC Metformin HCl (Glucophage) 500 mg BIDWMEALS PO ; Start 09/12/19 at 17:00 Info (CONTRAST GIVEN -- Rx MONITORING) 1 each PRN DAILY PRN MC SEE COMMENTS; Start 09/10/19 at 13:45; Stop 09/12/19 at 13:44 Enoxaparin Sodium (Lovenox 40mg Syringe) 40 mg BID SQ Last administered on 09/11/19at 09:37; Start 09/10/19 at 21:00 Sodium Chloride (Normal Saline Flush) 3 ml QSHIFT PRN IV AFTER MEDS AND BLOOD DRAWS; Start 09/10/19 at 15:45 Sodium Chloride 1,000 ml @ 70 mls/hr [id number] IV Last administered on 09/10/19at 15:31; Start 09/10/19 at 15:31 Ondansetron HCl (Zofran) 4 mg PRN Q4HRS PRN IV NAUSEA/VOMITING; Start 09/10/19 at 15:45 Zolpidem Tartrate (Ambien) 5 mg PRN QHS PRN PO INSOMNIA; Start 09/10/19 at 15:45 Acetaminophen (Tylenol) 650 mg PRN Q4HRS PRN PO TEMP OVER 100.4F OR MILD PAIN Last administered on 09/11/19at 03:41; Start 09/10/19 at 15:45 Acetaminophen (Tylenol) 650 mg PRN Q4HRS PRN GT TEMP OVER 100.4F OR MILD PAIN; Start 09/10/19 at 15:45 Al Hydroxide/Mg Hydroxide (Mylanta Plus Xs) 30 ml PRN DAILY PRN PO HEARTBURN / GAS; Start 09/10/19 at 15:45 Clonidine HCl (Catapres) 0.1 mg PRN Q6HRS PRN PO SBP>160 OR DBP>90; Start 09/10/19 at 15:45 Docusate Sodium (Colace) 100 mg PRN BID PRN PO CONSTIPATION; Start 09/10/19 at 15:45 Albuterol Sulfate (Ventolin Neb Soln) 2.5 mg PRN Q4HRS PRN NEB SHORTNESS OF BREATH; Start 09/10/19 at 15:45 Guaifenesin (Robitussin) 200 mg PRN Q4HRS PRN PO COUGH; Start 09/10/19 at 15:45 Lorazepam (Ativan) 0.5 mg PRN Q4HRS PRN PO ANXIETY / AGITATION; Start 09/10/19 at 15:45 Enoxaparin Sodium (Lovenox 40mg Syringe) 40 mg DAILY SQ ; Start 09/11/19 at 09:00; Stop 09/10/19 at 16:01; Status DC Hydralazine HCl (Apresoline Inj) 10 mg PRN Q4HRS PRN IVP ELEVATED BP, SEE COMMENTS; Start 09/10/19 at 18:00 Active Scripts Active Proair Hfa Inhaler (Albuterol Sulfate) 8.5 Gm Hfa.aer.ad 2 Puff INH Q4-6HRS PRN Reported [place] 10-325 Tablet (Acetaminophen/Hydrocodone Bitart) 1 Each Tablet 1 Tab PO QHS Metoprolol Tartrate 50 Mg Tablet 1 Tab PO BID Oxybutynin Chloride 5 Mg Tablet 5 Mg PO TID Clonidine Hcl 0.1 Mg Tablet 0.2 Mg PO BID Escitalopram Oxalate 10 Mg Tablet 1 Tab PO DAILY Tribenzor 40-10-25 Mg Tablet (Olmesartan/Amlodipin/Hcthiazid) 1 Each Tablet 1 Tab PO DAILY Centrum Silver Tablet (Multivits-Min/Fa/Lycopene/Lut) 1 Each Tablet 1 Each PO Aspirin 325 Mg Tablet 1 Tab PO DAILY Atorvastatin Calcium 40 Mg Tablet 1 Tab PO DAILY Metformin Hcl 500 Mg Tablet 1 Tab PO BID Vitals/I & O Vital Sign - Last 24 Hours 09/10/19 09/10/19 09/10/19 09/10/19 09:53 09:53 09:54 09:55 Pulse 64 64 64 64 B/P (MAP) 166/80 166/80 166/80 166/80 09/10/19 09/10/19 09/10/19 09/10/19 10:49 12:00 15:30 19:51 Temp 98.8 97.8 98.5 98.8 97.8 98.5 Pulse 64 48 54 Resp 18 18 18 B/P (MAP) 143/60 (87) 126/62 (83) 108/56 (73) Pulse Ox 98 95 96 O2 Delivery Room Air Room Air Room Air Room Air 09/10/19 09/10/19 09/11/19 09/11/19 21:00 23:36 03:10 07:44 Temp 98.5 98.8 98.7 98.5 98.8 98.7 Pulse 54 44 44 48 Resp 18 18 20 B/P (MAP) 108/56 143/75 (97) 150/66 (94) 127/61 (83) Pulse Ox 92 94 99 O2 Delivery Room Air Room Air Room Air 09/11/19 09/11/19 09/11/19 09:35 09:36 09:36 Pulse 48 48 48 B/P (MAP) 127/61 127/61 127/61 Intake and Output 09/10/19 09/10/19 09/11/19 15:00 23:00 07:00 Intake Total 0 ml 630 ml 750 ml Output Total 2 ml Balance 0 ml 628 ml 750 ml LESLY PATE MD Sep 11, 2019 09:45
--- NOTE | 2019-09-11 12:19 | PDOC ---
PROGRESS NOTES Assessment Multifocal acute infarcts within the right nicole, left occipital lobe and right greater than left cerebellum. Severe short segment stenosis of the basilar artery, absent visualization of the right posterior artery P1 segment, irregular course of the left posterior cerebral artery with the P1 segment appearing to extend to the right of midline prior to taking its expected course more distally, poorly evaluated arterial branches off the vertebral and basilar artery Cerumen in the right ear seen Gait disorder due to arthritis in the knees Plan Rehabilitation Statin, she is on a triple medication at home but does not know the name Dual antiplatelet therapy I discussed the case last night with Dr. Dempsey, neurology stroke team, who does not see a need for transfer or acute intervention therapy. He agrees with medical therapy. Subjective Still feels dizzy, not up to going home yet Objective Vital Signs Date Time Temp Pulse Resp B/P (MAP) Pulse Ox O2 Delivery O2 Flow Rate FiO2 09/11/19 11:29 98.1 44 20 132/93 (106) 95 Room Air 98.1 Intake and Output 09/11/19 07:00 Intake Total 1380 ml Output Total 2 ml Balance 1378 ml Intake Oral 1380 ml Output Urine Total 2 ml # Voids 5 PHYSICAL EXAM Alert. Oriented to time, place and person. PERRL. EOMI. CN: no focal findings. Muscle tone: normal. Muscle strength: 5/5 DTR: 2+ Plantar reflex: flexor Gait: not examined in bed. Sensory exam: no abnormal findings. No cerebellar signs elicited. Review of Relevant I have reviewed the following items brenda (where applicable) has been applied. Labs Laboratory Tests Test 09/09/19 21:33 09/10/19 05:15 09/10/19 10:28 09/10/19 16:47 Glucose (Fingerstick) 101 mg/dL (70-99) 186 mg/dL (70-99) 83 mg/dL (70-99) White Blood Count 5.4 x10^3/uL (4.0-11.0) Red Blood Count 4.77 x10^6/uL (3.50-5.40) Hemoglobin 12.8 g/dL (12.0-15.5) Hematocrit 39.7 % (36.0-47.0) Mean Corpuscular Volume 83 fL (79-100) Mean Corpuscular Hemoglobin 27 pg (25-35) Mean Corpuscular Hemoglobin Concent 32 g/dL (31-37) Red Cell Distribution Width 16.1 % (11.5-14.5) Platelet Count 266 x10^3/uL (140-400) Neutrophils (%) (Auto) 56 % (31-73) Lymphocytes (%) (Auto) 33 % (24-48) Monocytes (%) (Auto) 8 % (0-9) Eosinophils (%) (Auto) 2 % (0-3) Basophils (%) (Auto) 1 % (0-3) Neutrophils # (Auto) 3.0 x10^3/uL (1.8-7.7) Lymphocytes # (Auto) 1.8 x10^3/uL (1.0-4.8) Monocytes # (Auto) 0.4 x10^3/uL (0.0-1.1) Eosinophils # (Auto) 0.1 x10^3/uL (0.0-0.7) Basophils # (Auto) 0.0 x10^3/uL (0.0-0.2) Sodium Level 143 mmol/L (136-145) Potassium Level 3.9 mmol/L (3.5-5.1) Chloride Level 106 mmol/L (98-107) Carbon Dioxide Level 30 mmol/L (21-32) Anion Gap 7 (6-14) Blood Urea Nitrogen 13 mg/dL (7-20) Creatinine 0.9 mg/dL (0.6-1.0) Estimated GFR (Cockcroft-Gault) 76.3 Glucose Level 113 mg/dL (70-99) Calcium Level 8.7 mg/dL (8.5-10.1) Thyroid Stimulating Hormone (TSH) 1.180 uIU/mL (0.358-3.74) Test 09/10/19 20:49 09/11/19 04:30 09/11/19 07:20 09/11/19 11:12 Glucose (Fingerstick) 103 mg/dL (70-99) 114 mg/dL (70-99) 122 mg/dL (70-99) Triglycerides Level 87 mg/dL (0-150) Cholesterol Level 183 mg/dL (0-200) LDL Cholesterol, Calculated 125 mg/dL (0-100) VLDL Cholesterol, Calculated 17 mg/dL (0-40) Non-HDL Cholesterol Calculated 142 mg/dL (0-129) HDL Cholesterol 41 mg/dL (40-60) Cholesterol/HDL Ratio 4.5 Laboratory Tests Test 09/10/19 16:47 09/10/19 20:49 09/11/19 04:30 09/11/19 07:20 Glucose (Fingerstick) 83 mg/dL (70-99) 103 mg/dL (70-99) 114 mg/dL (70-99) Triglycerides Level 87 mg/dL (0-150) Cholesterol Level 183 mg/dL (0-200) LDL Cholesterol, Calculated 125 mg/dL (0-100) VLDL Cholesterol, Calculated 17 mg/dL (0-40) Non-HDL Cholesterol Calculated 142 mg/dL (0-129) HDL Cholesterol 41 mg/dL (40-60) Cholesterol/HDL Ratio 4.5 Test 09/11/19 11:12 Glucose (Fingerstick) 122 mg/dL (70-99) Medications Current Medications Ondansetron HCl (Zofran) 4 mg PRN Q4HRS PRN IV NAUSEA/VOMITING; Start 09/09/19 at 21:15; Stop 09/10/19 at 16:02; Status DC Acetaminophen (Tylenol) 650 mg PRN Q4HRS PRN PO TEMP OVER 100.4F OR MILD PAIN; Start 09/09/19 at 21:15; Stop 09/10/19 at 13:43; Status DC Clonidine HCl (Catapres) 0.1 mg PRN Q6HRS PRN PO SBP>160 OR DBP>90; Start 09/09/19 at 21:15; Stop 09/10/19 at 16:00; Status DC Docusate Sodium (Colace) 100 mg PRN BID PRN PO CONSTIPATION; Start 09/09/19 at 21:15; Stop 09/10/19 at 16:02; Status DC Enoxaparin Sodium (Lovenox 40mg Syringe) 40 mg DAILY SQ Last administered on 09/10/19at 09:56; Start 09/10/19 at 09:00; Stop 09/10/19 at 15:26; Status DC Labetalol HCl (Normodyne Iv Push) 10 mg PRN Q2HR PRN IVP HYPERTENSION; Start 09/09/19 at 21:15 Insulin Human Lispro (HumaLOG) 0-7 UNITS TIDACHC SQ Last administered on 08/29 13:46; Start 09/09/19 at 21:30 Dextrose (Dextrose 50%-Water Syringe) 12.5 gm PRN Q15MIN PRN IV SEE COMMENTS; Start 09/09/19 at 21:15 Albuterol Sulfate (Ventolin Neb Soln) 2.5 mg PRN Q4HRS PRN INH WHEEZING; Start 09/09/19 at 21:15; Stop 09/10/19 at 16:01; Status DC Aspirin (Radha Aspirin) 325 mg DAILYWBKFT PO Last administered on 09/10/19 09:55; Start 09/10/19 at 08:00; Stop 09/10/19 at 13:41; Status DC Atorvastatin Calcium (Lipitor) 40 mg QHS PO Last administered on 09/10/19 22:22; Start 09/09/19 at 21:30 Clonidine HCl (Catapres) 0.2 mg BID PO Last administered on 09/11/19 09:36; Start 09/09/19 at 21:30 Acetaminophen/ Hydrocodone Bitart (Lortab 10/325) 1 tab PRN QHS PRN PO pain Last administered on 09/10/19 22:23; Start 09/09/19 at 21:15 Metformin HCl (Glucophage) 500 mg BIDWMEALS PO Last administered on 09/10/19 09:55; Start 09/10/19 at 08:00; Stop 09/10/19 at 13:42; Status DC Metoprolol Tartrate (Lopressor) 50 mg BID PO Last administered on 09/10/19 09:55; Start 09/09/19 at 21:30; Stop 09/10/19 at 17:48; Status DC Oxybutynin Chloride (Ditropan) 5 mg TID PO Last administered on 09/11/19 09:36; Start 09/09/19 at 21:30 Citalopram Hydrobromide (CeleXA) 20 mg DAILY PO Last administered on 09/11/19at 09:37; Start 09/10/19 at 09:00 Non-Formulary Medication (Olmesartan/ Amlodipin/ Hcthiazid (Tribenzor 40-10-25 Mg Tablet)) 1 tab DAILY PO ; Start 09/10/19 at 09:00; Status UNV Losartan Potassium (Cozaar) 100 mg DAILY PO Last administered on 09/11/19at 09:35; Start 09/10/19 at 09:00 Amlodipine Besylate (Norvasc) 10 mg DAILY PO Last administered on 09/11/19at 09:36; Start 09/10/19 at 09:00 Hydrochlorothiazide (Hydrodiuril) 25 mg DAILY PO Last administered on 09/11/19at 09:35; Start 09/10/19 at 09:00 Influenza Virus Vaccine Quadrival (Afluria Quad 2019-20 (3yr Up) Syringe) 0.5 ml ONCE ONCE VAX IM Last administered on 09/10/19at 10:06; Start 09/10/19 at 09:00; Stop 09/10/19 at 09:01; Status DC Enoxaparin Sodium (Lovenox 40mg Syringe) 40 mg Q24H SQ ; Start 09/10/19 at 13:30; Status UNV Acetaminophen (Tylenol) 650 mg PRN Q6HRS PRN PO TEMP > 100.4F; Start 09/10/19 at 13:30; Stop 09/10/19 at 16:01; Status DC Acetaminophen (Tylenol Supp) 650 mg PRN Q4HRS PRN ME TEMP > 100.4F; Start 09/10/19 at 13:30 Aspirin (Ecotrin) 325 mg DAILYWBKFT PO Last administered on 09/11/19at 09:37; Start 09/11/19 at 08:00 Aspirin (Aspirin Rectal Supp) 300 mg PRN DAILY PRN ME IF UNABLE TO TAKE PO; Start 09/10/19 at 13:30 Iohexol (Omnipaque 350 Mg/ml) 75 ml 1X ONCE IV Last administered on 09/10/19at 15:22; Start 09/10/19 at 13:45; Stop 09/10/19 at 13:46; Status DC Metformin HCl (Glucophage) 500 mg BIDWMEALS PO ; Start 09/12/19 at 17:00 Info (CONTRAST GIVEN -- Rx MONITORING) 1 each PRN DAILY PRN MC SEE COMMENTS; Start 09/10/19 at 13:45; Stop 09/12/19 at 13:44 Enoxaparin Sodium (Lovenox 40mg Syringe) 40 mg BID SQ Last administered on 09/11/19at 09:37; Start 09/10/19 at 21:00 Sodium Chloride (Normal Saline Flush) 3 ml QSHIFT PRN IV AFTER MEDS AND BLOOD DRAWS; Start 09/10/19 at 15:45 Sodium Chloride 1,000 ml @ 70 mls/hr [id number] IV Last administered on 09/10/19at 15:31; Start 09/10/19 at 15:31 Ondansetron HCl (Zofran) 4 mg PRN Q4HRS PRN IV NAUSEA/VOMITING; Start 09/10/19 at 15:45 Zolpidem Tartrate (Ambien) 5 mg PRN QHS PRN PO INSOMNIA; Start 09/10/19 at 15:45 Acetaminophen (Tylenol) 650 mg PRN Q4HRS PRN PO TEMP OVER 100.4F OR MILD PAIN Last administered on 09/11/19at 03:41; Start 09/10/19 at 15:45 Acetaminophen (Tylenol) 650 mg PRN Q4HRS PRN GT TEMP OVER 100.4F OR MILD PAIN; Start 09/10/19 at 15:45 Al Hydroxide/Mg Hydroxide (Mylanta Plus Xs) 30 ml PRN DAILY PRN PO HEARTBURN / GAS; Start 09/10/19 at 15:45 Clonidine HCl (Catapres) 0.1 mg PRN Q6HRS PRN PO SBP>160 OR DBP>90; Start 09/10/19 at 15:45 Docusate Sodium (Colace) 100 mg PRN BID PRN PO CONSTIPATION; Start 09/10/19 at 15:45 Albuterol Sulfate (Ventolin Neb Soln) 2.5 mg PRN Q4HRS PRN NEB SHORTNESS OF BREATH; Start 09/10/19 at 15:45 Guaifenesin (Robitussin) 200 mg PRN Q4HRS PRN PO COUGH; Start 09/10/19 at 15:45 Lorazepam (Ativan) 0.5 mg PRN Q4HRS PRN PO ANXIETY / AGITATION; Start 09/10/19 at 15:45 Enoxaparin Sodium (Lovenox 40mg Syringe) 40 mg DAILY SQ ; Start 09/11/19 at 09:00; Stop 09/10/19 at 16:01; Status DC Hydralazine HCl (Apresoline Inj) 10 mg PRN Q4HRS PRN IVP ELEVATED BP, SEE COMMENTS; Start 09/10/19 at 18:00 Active Scripts Active Proair Hfa Inhaler (Albuterol Sulfate) 8.5 Gm Hfa.aer.ad 2 Puff INH Q4-6HRS PRN Reported Ruby 10-325 Tablet (Acetaminophen/Hydrocodone Bitart) 1 Each Tablet 1 Tab PO QHS Metoprolol Tartrate 50 Mg Tablet 1 Tab PO BID Oxybutynin Chloride 5 Mg Tablet 5 Mg PO TID Clonidine Hcl 0.1 Mg Tablet 0.2 Mg PO BID Escitalopram Oxalate 10 Mg Tablet 1 Tab PO DAILY Tribenzor 40-10-25 Mg Tablet (Olmesartan/Amlodipin/Hcthiazid) 1 Each Tablet 1 Tab PO DAILY Centrum Silver Tablet (Multivits-Min/Fa/Lycopene/Lut) 1 Each Tablet 1 Each PO Aspirin 325 Mg Tablet 1 Tab PO DAILY Atorvastatin Calcium 40 Mg Tablet 1 Tab PO DAILY Metformin Hcl 500 Mg Tablet 1 Tab PO BID Vitals/I & O Vital Sign - Last 24 Hours 09/10/19 09/10/19 09/10/19 09/10/19 15:30 19:51 21:00 23:36 Temp 97.8 98.5 98.5 97.8 98.5 98.5 Pulse 48 54 54 44 Resp 18 18 18 B/P (MAP) 126/62 (83) 108/56 (73) 108/56 143/75 (97) Pulse Ox 95 96 92 O2 Delivery Room Air Room Air Room Air 09/11/19 09/11/19 09/11/19 09/11/19 03:10 07:44 09:35 09:36 Temp 98.8 98.7 98.8 98.7 Pulse 44 48 48 48 Resp 18 20 B/P (MAP) 150/66 (94) 127/61 (83) 127/61 127/61 Pulse Ox 94 99 O2 Delivery Room Air Room Air 09/11/19 09/11/19 09:36 11:29 Temp 98.1 98.1 Pulse 48 44 Resp 20 B/P (MAP) 127/61 132/93 (106) Pulse Ox 95 O2 Delivery Room Air Intake and Output 09/10/19 09/10/19 09/11/19 15:00 23:00 07:00 Intake Total 0 ml 630 ml 750 ml Output Total 2 ml Balance 0 ml 628 ml 750 ml Images BRAIN W/O CONTRAST History: Dizziness Technique: Multiplanar, multi sequential MR imaging was performed of the brain without contrast. Comparison: MRI May 18, 2018. Head CT May 17, 2018 Findings: Multiple small right greater than left cerebellar infarcts. Several left inferior medial occipital lobe infarcts. Right lateral pontine infarcts. Incomplete FLAIR suppression within the left occipital region likely related to artifact or segmental oxygen. No intracranial hemorrhage. No significant mass effect. No hydrocephalus. Additional mild foci of T2/FLAIR hyperintensities within the hemispheric white matter, most often due to chronic microvascular ischemia. Imaged orbits are unremarkable. Imaged paranasal sinuses and mastoid air cells are clear. Impression: 1. Multifocal acute infarcts within the right nicole, left occipital lobe and right greater than left cerebellum. Findings may relate to embolic etiology. If concern for basilar artery compromise CT angiogram can further assess. 2. Incomplete FLAIR suppression within the left occipital region, may relate to artifact or subtle minimal oxygen. If concern for infection MRI post contrast imaging can better assess. CT angiography of the head and neck INDICATION: Multiple posterior circulation strokes. COMPARISON: No prior angiographic evaluation is available for review. TECHNIQUE: Axial CT imaging of the head and neck utilizing angiography protocol and performed after the intravenous administration of 75 cc Omnipaque 350 contrast. Multiplanar reformats and 3D MIP acquisitions were obtained. Encountered areas of stenosis are measured per NASCET criteria. One or more of the following individualized dose reduction techniques were utilized for this examination: 1. Automated exposure control 2. Adjustment of the mA and/or kV according to patient size 3. Use of iterative reconstruction technique. FINDINGS: CTA NECK: Three vessel arch. No stenosis at the great vessel origins. Retropharyngeal course of the right common carotid artery. Mild calcific plaque at the left proximal internal carotid artery. No flow-limiting stenosis at either carotid bifurcation. No flow-limiting stenosis in either vertebral artery origin. No dissection, flow-limiting stenosis or occlusion seen throughout either extracranial vertebral artery. Regions of tortuosity noted. CTA HEAD: Both vertebral arteries contribute to basilar flow. The basilar artery is diminutive in size and limited progressively narrows to a short segment of severe stenosis approximately 1.4 cm from the proximal aspect of the basilar artery with the stenosis extending over a length of approximately 2.5 mm. Patency of the basilar artery distal to the stenosis. The arterial branches off the vertebral and basilar arteries are diminutive and not well visualized throughout the majority of their course. The right P1 segment is not well delineated. There appears to be reconstitution of posterior cerebral artery flow on the right distally but it is difficult to differentiate arteries from veins given bolus timing. It appears as if the left posterior cerebral artery courses to the right of midline prior to taking its expected course at the P2 segment and beyond though again it is difficult to distinguish arteries from veins in this region. Bilateral carotid siphon atherosclerotic calcifications. Mild to moderate right and more mild left regions of intracranial internal carotid artery narrowing seen distal to the cavernous segments. No branch vessel occlusion seen throughout the middle or anterior cerebral arteries bilaterally. Patent major intracerebral veins and dural sinuses noting a hypoplastic left transverse sinus. MISCELLANEOUS: Advanced multifocal odontogenic disease. Multifocal degenerative changes throughout the cervical spine as well as involving the upper thoracic spine. IMPRESSION: 1. Severe short segment stenosis of the basilar artery seen approximately 1.4 cm from the origin. The segment of severe stenosis measures approximately 2.5 cm in length. 2. Absent visualization of the right posterior artery P1 segment. There appears to be opacification at the P2 segment region and beyond though the intracranial portion of the study is made difficult by bolus timing with extensive venous contamination. Irregular course of the left posterior cerebral artery with the P1 segment appearing to extend to the right of midline prior to taking its expected course more distally. Again the peripheral left posterior cerebral artery segments are not well evaluated due to venous contamination. 3. Poorly evaluated arterial branches off the vertebral and basilar artery. Evaluation for any peripheral occlusion of these small vessels is limited. 4. No flow-limiting stenosis or branch vessel occlusion seen throughout the middle or anterior cerebral arteries. Mild to moderate right and mild left regions of intracranial internal carotid artery narrowing. 5. No flow-limiting stenosis, dissection or occlusion throughout the major extracranial arteries. 6. Additional chronic observations as above. CHEVY IRELAND MD Sep 11, 2019 12:19
--- NOTE | 2019-09-11 13:05 | PDOC ---
PROGRESS NOTES Subjective Subjective Patient seen and examined Objective Objective Vital Signs Date Time Temp Pulse Resp B/P (MAP) Pulse Ox O2 Delivery O2 Flow Rate FiO2 09/11/19 11:29 98.1 44 20 132/93 (106) 95 Room Air 98.1 Intake and Output 09/11/19 07:00 Intake Total 1380 ml Output Total 2 ml Balance 1378 ml Intake Oral 1380 ml Output Urine Total 2 ml # Voids 5 Physical Exam Abdomen: Normal bowel sounds Heart: Other (regular rhythm rate of rate of 48) General: mild distress Lungs: Clear to auscultation Assessment Assessment 1. Multiple acute infarcts. Followed by neurology. Discussion with [facility] as above 2. Secondary severe pulmonary HTN with COPD and ZAHIDA. Continue present medicati present medications.ons. 3. Chronic diastolic CHF: compensated 4. HTN 5. DM2/HLP 6. Morbid obesity 7. CKD3 8. Sinus bradycardia: Rate mildly improved now and 48 off beta blockers. We'll continue to monitor. Comment Review of Relevant I have reviewed the following items brenda (where applicable) has been applied. Labs Laboratory Tests Test 09/09/19 21:33 09/10/19 05:15 09/10/19 10:28 09/10/19 16:47 Glucose (Fingerstick) 101 mg/dL (70-99) 186 mg/dL (70-99) 83 mg/dL (70-99) White Blood Count 5.4 x10^3/uL (4.0-11.0) Red Blood Count 4.77 x10^6/uL (3.50-5.40) Hemoglobin 12.8 g/dL (12.0-15.5) Hematocrit 39.7 % (36.0-47.0) Mean Corpuscular Volume 83 fL (79-100) Mean Corpuscular Hemoglobin 27 pg (25-35) Mean Corpuscular Hemoglobin Concent 32 g/dL (31-37) Red Cell Distribution Width 16.1 % (11.5-14.5) Platelet Count 266 x10^3/uL (140-400) Neutrophils (%) (Auto) 56 % (31-73) Lymphocytes (%) (Auto) 33 % (24-48) Monocytes (%) (Auto) 8 % (0-9) Eosinophils (%) (Auto) 2 % (0-3) Basophils (%) (Auto) 1 % (0-3) Neutrophils # (Auto) 3.0 x10^3/uL (1.8-7.7) Lymphocytes # (Auto) 1.8 x10^3/uL (1.0-4.8) Monocytes # (Auto) 0.4 x10^3/uL (0.0-1.1) Eosinophils # (Auto) 0.1 x10^3/uL (0.0-0.7) Basophils # (Auto) 0.0 x10^3/uL (0.0-0.2) Sodium Level 143 mmol/L (136-145) Potassium Level 3.9 mmol/L (3.5-5.1) Chloride Level 106 mmol/L (98-107) Carbon Dioxide Level 30 mmol/L (21-32) Anion Gap 7 (6-14) Blood Urea Nitrogen 13 mg/dL (7-20) Creatinine 0.9 mg/dL (0.6-1.0) Estimated GFR (Cockcroft-Gault) 76.3 Glucose Level 113 mg/dL (70-99) Calcium Level 8.7 mg/dL (8.5-10.1) Thyroid Stimulating Hormone (TSH) 1.180 uIU/mL (0.358-3.74) Test 09/10/19 20:49 09/11/19 04:30 09/11/19 07:20 09/11/19 11:12 Glucose (Fingerstick) 103 mg/dL (70-99) 114 mg/dL (70-99) 122 mg/dL (70-99) Triglycerides Level 87 mg/dL (0-150) Cholesterol Level 183 mg/dL (0-200) LDL Cholesterol, Calculated 125 mg/dL (0-100) VLDL Cholesterol, Calculated 17 mg/dL (0-40) Non-HDL Cholesterol Calculated 142 mg/dL (0-129) HDL Cholesterol 41 mg/dL (40-60) Cholesterol/HDL Ratio 4.5 Laboratory Tests Test 09/10/19 16:47 09/10/19 20:49 09/11/19 04:30 09/11/19 07:20 Glucose (Fingerstick) 83 mg/dL (70-99) 103 mg/dL (70-99) 114 mg/dL (70-99) Triglycerides Level 87 mg/dL (0-150) Cholesterol Level 183 mg/dL (0-200) LDL Cholesterol, Calculated 125 mg/dL (0-100) VLDL Cholesterol, Calculated 17 mg/dL (0-40) Non-HDL Cholesterol Calculated 142 mg/dL (0-129) HDL Cholesterol 41 mg/dL (40-60) Cholesterol/HDL Ratio 4.5 Test 09/11/19 11:12 Glucose (Fingerstick) 122 mg/dL (70-99) Medications Current Medications Ondansetron HCl (Zofran) 4 mg PRN Q4HRS PRN IV NAUSEA/VOMITING; Start 09/09/19 at 21:15; Stop 09/10/19 at 16:02; Status DC Acetaminophen (Tylenol) 650 mg PRN Q4HRS PRN PO TEMP OVER 100.4F OR MILD PAIN; Start 09/09/19 at 21:15; Stop 09/10/19 at 13:43; Status DC Clonidine HCl (Catapres) 0.1 mg PRN Q6HRS PRN PO SBP>160 OR DBP>90; Start 09/09/19 at 21:15; Stop 09/10/19 at 16:00; Status DC Docusate Sodium (Colace) 100 mg PRN BID PRN PO CONSTIPATION; Start 09/09/19 at 21:15; Stop 09/10/19 at 16:02; Status DC Enoxaparin Sodium (Lovenox 40mg Syringe) 40 mg DAILY SQ Last administered on 09/10/19at 09:56; Start 09/10/19 at 09:00; Stop 09/10/19 at 15:26; Status DC Labetalol HCl (Normodyne Iv Push) 10 mg PRN Q2HR PRN IVP HYPERTENSION; Start 09/09/19 at 21:15 Insulin Human Lispro (HumaLOG) 0-7 UNITS TIDACHC SQ Last administered on 09/10/19at 13:46; Start 09/09/19 at 21:30 Dextrose (Dextrose 50%-Water Syringe) 12.5 gm PRN Q15MIN PRN IV SEE COMMENTS; Start 09/09/19 at 21:15 Albuterol Sulfate (Ventolin Neb Soln) 2.5 mg PRN Q4HRS PRN INH WHEEZING; Start 09/09/19 at 21:15; Stop 09/10/19 at 16:01; Status DC Aspirin (Radha Aspirin) 325 mg DAILYWBKFT PO Last administered on 09/10/19 09:55; Start 09/10/19 at 08:00; Stop 09/10/19 at 13:41; Status DC Atorvastatin Calcium (Lipitor) 40 mg QHS PO Last administered on 09/10/19 22:22; Start 09/09/19 at 21:30 Clonidine HCl (Catapres) 0.2 mg BID PO Last administered on 09/11/19 09:36; Start 09/09/19 at 21:30 Acetaminophen/ Hydrocodone Bitart (Lortab 10/325) 1 tab PRN QHS PRN PO pain Last administered on 09/10/19 22:23; Start 09/09/19 at 21:15 Metformin HCl (Glucophage) 500 mg BIDWMEALS PO Last administered on 09/10/19 09:55; Start 09/10/19 at 08:00; Stop 09/10/19 at 13:42; Status DC Metoprolol Tartrate (Lopressor) 50 mg BID PO Last administered on 09/10/19 09:55; Start 09/09/19 at 21:30; Stop 09/10/19 at 17:48; Status DC Oxybutynin Chloride (Ditropan) 5 mg TID PO Last administered on 09/11/19 09:36; Start 09/09/19 at 21:30 Citalopram Hydrobromide (CeleXA) 20 mg DAILY PO Last administered on 09/11/19 09:37; Start 09/10/19 at 09:00 Non-Formulary Medication (Olmesartan/ Amlodipin/ Hcthiazid (Tribenzor 40-10-25 Mg Tablet)) 1 tab DAILY PO ; Start 09/10/19 at 09:00; Status UNV Losartan Potassium (Cozaar) 100 mg DAILY PO Last administered on 09/11/19 09:35; Start 09/10/19 at 09:00 Amlodipine Besylate (Norvasc) 10 mg DAILY PO Last administered on 09/11/19 09:36; Start 09/10/19 at 09:00 Hydrochlorothiazide (Hydrodiuril) 25 mg DAILY PO Last administered on 09/11/19 09:35; Start 09/10/19 at 09:00 Influenza Virus Vaccine Quadrival (Afluria Quad 2019-20 (3yr Up) Syringe) 0.5 ml ONCE ONCE VAX IM Last administered on 09/10/19at 10:06; Start 09/10/19 at 09:00; Stop 09/10/19 at 09:01; Status DC Enoxaparin Sodium (Lovenox 40mg Syringe) 40 mg Q24H SQ ; Start 09/10/19 at 13:30; Status UNV Acetaminophen (Tylenol) 650 mg PRN Q6HRS PRN PO TEMP > 100.4F; Start 09/10/19 at 13:30; Stop 09/10/19 at 16:01; Status DC Acetaminophen (Tylenol Supp) 650 mg PRN Q4HRS PRN [place] TEMP > 100.4F; Start 09/10/19 at 13:30 Aspirin (Ecotrin) 325 mg DAILYWBKFT PO Last administered on 09/11/19at 09:37; Start 09/11/19 at 08:00 Aspirin (Aspirin Rectal Supp) 300 mg PRN DAILY PRN [place] IF UNABLE TO TAKE PO; Start 09/10/19 at 13:30 Iohexol (Omnipaque 350 Mg/ml) 75 ml 1X ONCE IV Last administered on 09/10/19at 15:22; Start 09/10/19 at 13:45; Stop 09/10/19 at 13:46; Status DC Metformin HCl (Glucophage) 500 mg BIDWMEALS PO ; Start 09/12/19 at 17:00 Info (CONTRAST GIVEN -- Rx MONITORING) 1 each PRN DAILY PRN MC SEE COMMENTS; Start 09/10/19 at 13:45; Stop 09/12/19 at 13:44 Enoxaparin Sodium (Lovenox 40mg Syringe) 40 mg BID SQ Last administered on 09/11/19at 09:37; Start 09/10/19 at 21:00 Sodium Chloride (Normal Saline Flush) 3 ml QSHIFT PRN IV AFTER MEDS AND BLOOD DRAWS; Start 09/10/19 at 15:45 Sodium Chloride 1,000 ml @ 70 mls/hr [id number] IV Last administered on at 15:31; Start 09/10/19 at 15:31 Ondansetron HCl (Zofran) 4 mg PRN Q4HRS PRN IV NAUSEA/VOMITING; Start 09/10/19 at 15:45 Zolpidem Tartrate (Ambien) 5 mg PRN QHS PRN PO INSOMNIA; Start 09/10/19 at 15:45 Acetaminophen (Tylenol) 650 mg PRN Q4HRS PRN PO TEMP OVER 100.4F OR MILD PAIN Last administered on 09/11/19at 03:41; Start 09/10/19 at 15:45 Acetaminophen (Tylenol) 650 mg PRN Q4HRS PRN GT TEMP OVER 100.4F OR MILD PAIN; Start 09/10/19 at 15:45 Al Hydroxide/Mg Hydroxide (Mylanta Plus Xs) 30 ml PRN DAILY PRN PO HEARTBURN / GAS; Start 09/10/19 at 15:45 Clonidine HCl (Catapres) 0.1 mg PRN Q6HRS PRN PO SBP>160 OR DBP>90; Start 09/10/19 at 15:45 Docusate Sodium (Colace) 100 mg PRN BID PRN PO CONSTIPATION; Start 09/10/19 at 15:45 Albuterol Sulfate (Ventolin Neb Soln) 2.5 mg PRN Q4HRS PRN NEB SHORTNESS OF BREATH; Start 09/10/19 at 15:45 Guaifenesin (Robitussin) 200 mg PRN Q4HRS PRN PO COUGH; Start 09/10/19 at 15:45 Lorazepam (Ativan) 0.5 mg PRN Q4HRS PRN PO ANXIETY / AGITATION; Start 09/10/19 at 15:45 Enoxaparin Sodium (Lovenox 40mg Syringe) 40 mg DAILY SQ ; Start 09/11/19 at 09:00; Stop 09/10/19 at 16:01; Status DC Hydralazine HCl (Apresoline Inj) 10 mg PRN Q4HRS PRN IVP ELEVATED BP, SEE COMMENTS; Start 09/10/19 at 18:00 Active Scripts Active Proair Hfa Inhaler (Albuterol Sulfate) 8.5 Gm Hfa.aer.ad 2 Puff INH Q4-6HRS PRN Reported [place] 10-325 Tablet (Acetaminophen/Hydrocodone Bitart) 1 Each Tablet 1 Tab PO QHS Metoprolol Tartrate 50 Mg Tablet 1 Tab PO BID Oxybutynin Chloride 5 Mg Tablet 5 Mg PO TID Clonidine Hcl 0.1 Mg Tablet 0.2 Mg PO BID Escitalopram Oxalate 10 Mg Tablet 1 Tab PO DAILY Tribenzor 40-10-25 Mg Tablet (Olmesartan/Amlodipin/Hcthiazid) 1 Each Tablet 1 Tab PO DAILY Centrum Silver Tablet (Multivits-Min/Fa/Lycopene/Lut) 1 Each Tablet 1 Each PO Aspirin 325 Mg Tablet 1 Tab PO DAILY Atorvastatin Calcium 40 Mg Tablet 1 Tab PO DAILY Metformin Hcl 500 Mg Tablet 1 Tab PO BID Vitals/I & O Vital Sign - Last 24 Hours 09/10/19 09/10/19 09/10/19 09/10/19 15:30 19:51 21:00 23:36 Temp 97.8 98.5 98.5 97.8 98.5 98.5 Pulse 48 54 54 44 Resp 18 18 18 B/P (MAP) 126/62 (83) 108/56 (73) 108/56 143/75 (97) Pulse Ox 95 96 92 O2 Delivery Room Air Room Air Room Air 09/11/19 09/11/19 09/11/19 09/11/19 03:10 07:44 09:35 09:36 Temp 98.8 98.7 98.8 98.7 Pulse 44 48 48 48 Resp 18 20 B/P (MAP) 150/66 (94) 127/61 (83) 127/61 127/61 Pulse Ox 94 99 O2 Delivery Room Air Room Air 09/11/19 09/11/19 09:36 11:29 Temp 98.1 98.1 Pulse 48 44 Resp 20 B/P (MAP) 127/61 132/93 (106) Pulse Ox 95 O2 Delivery Room Air Intake and Output 09/10/19 09/10/19 09/11/19 15:00 23:00 07:00 Intake Total 0 ml 630 ml 750 ml Output Total 2 ml Balance 0 ml 628 ml 750 ml SERINA BREWER MD Sep 11, 2019 13:05
[2019-09-11] MEDS: CLOPIDOGREL BISULFATE 75 MG TABLET PO SCH (15:24)
[2019-09-11] MEDS: HYDROcodone/APAP 10/325 1 TAB TABLET PO PRN (15:28)
--- NOTE | 2019-09-11 16:20 | NUR ---
pt will trend to SB when she is sleeping. she has complained of a headache off and on today, has been oriented to place, person and time. Acosta Gan RN
[2019-09-11] MEDS: ATORVASTATIN CALCIUM 40 MG TABLET. PO SCH (20:12)
[2019-09-12 03:45] VITALS: BP 147/77
[2019-09-12 07:00] VITALS: BP 144/74
[2019-09-12] MEDS: INSULIN LISPRO 300 UNITS/3 ML VIAL. SQ SCH ×4 (07:30→21:00)
[2019-09-12] MEDS: ENOXAPARIN 40 MG/0.4 ML SYRINGE. SQ SCH ×2 (09:11→20:15)
[2019-09-12] MEDS: CITALOPRAM 20 MG TABLET. PO SCH (09:12)
[2019-09-12] MEDS: ASPIRIN ENTERIC COATED 325 MG TABLET.DR. PO SCH (09:12)
[2019-09-12] MEDS: hydroCHLOROthiazide 25 MG TABLET PO SCH (09:12)
[2019-09-12] MEDS: CLOPIDOGREL BISULFATE 75 MG TABLET PO SCH (09:12)
[2019-09-12] MEDS: LOSARTAN POTASSIUM 50 MG TABLET. PO SCH (09:12)
[2019-09-12] MEDS: OXYBUTYNIN CHLORIDE 5 MG TABLET PO SCH ×3 (09:12→20:15)
[2019-09-12] MEDS: amLODIPine BESYLATE 10 MG TABLET PO SCH (09:13)
[2019-09-12] MEDS: cloNIDine HCL 0.1 MG TABLET PO SCH ×2 (09:15→20:16)
[2019-09-12] MEDS: IV NORMAL SALINE 1000ML BAG 1,000 ML IV SCH (10:25)
--- NOTE | 2019-09-12 11:25 | PDOC ---
PROGRESS NOTES History of Present Illness History of Present Illness VTE Prophylaxis Ordered VTE Prophylaxis Devices: No VTE Pharmacological Prophylaxi: Yes Assessment/Plan Assessment/Plan impression dIZZINESS/ VERTIGO high fall risk HTN Multifocal acute infarcts within the right nicole, left occipital lobe and right greater than left cerebellum. Findings may relate to embolic etiology. If concern for basilar artery compromise CT angiogram can further assess. cardiomyopathy\ htn hyperlipidemia The Ejection Fraction is 60-65%. There is normal LV segmental wall motion. Trace to mild mitral regurgitation. Mild tricuspid regurgitation. 2018 PA pressure was estimated at 68 mmHg. C/W SEVERE PULM HTN HX 2018 Hemicolectomy with Silvina's pouch and flexible sigmoidoscopy. djd knees PLAN admit tele NEUROLOGY CONSULT TELE NEUROCHECKS Q 4 HRS PT/OT may need vestibular therapy ECHO CARDIOLOGY CONSULT MRI of the brain Rehabilitation screening bubble study Dual antiplatelet therapy Skilled interventions required to achieve goals * Activity mark. training * ADL training/education * Adaptive equip. training * Functional mobility train Discharge Recommendations * Acute Rehab facility Discharge Recommendation - DME * Rolling Walker needed * in order to complete ADLs * and ambulation safely Discharge Recommendation Comments * strongly recommend acute rehab * 38 MIN PT EXAM, CHART REVIEW, > 50% of time spent with exam, chart review, pt care coordination Vitals Vitals Vital Signs Date Time Temp Pulse Resp B/P (MAP) Pulse Ox O2 Delivery O2 Flow Rate FiO2 09/12/19 09:15 45 144/74 09/12/19 08:00 Room Air 09/12/19 07:00 98.1 20 98 98.1 Physical Exam General: mild distress Heart: Other (regular rhythm rate of rate of 48) Lungs: Clear Abdomen: Normal bowel sounds Extremities: No cyanosis, No edema Skin: No breakdown, No significant lesion Labs LABS Laboratory Tests Test 09/11/19 16:29 09/11/19 21:36 09/12/19 07:32 Glucose (Fingerstick) 120 mg/dL (70-99) 103 mg/dL (70-99) 123 mg/dL (70-99) Assessment and Plan Assessmemt and Plan Standing Exercises * Heel Raises * Toe Raises * Hip Abduction * Hip Extension * Knee Flex * Marching Standing Exercise Comments * x5 B LEs. light knee block when stance on left LE. Sit to stand x8 Other Information * New dx multiple CVAs. I would strongly recommend acute rehab to regain ability to ambulate independently and care for herself. Learning Preferences * One-on-One Instruction * Demonstration Problem List (body system elements) * Impaired fnctnl mobility * Strength * Obesity * Balance * Coordination * Knowledge-safe techniques Pt/caregiver agrees with plan of care/goals * Yes Goal 1 - Bed Mobility Assistance Required * Independent Goal 2 - Transfers Assistance Required * Independent Goal 2 - Transfer Type * Sit to Stand Goal 3 - Ambulation Assistance Required * Independent Goal 3 - Ambulation Distance * 50' Goal 3 - Ambulation Device * Roller Walker Goal 4 - Stairs Assistance Required * Independent Goal 4 - Number of Stairs * 5-9 Goal 4 - Device on Stairs * Roller Walker * Rail on Right Treatment Plan * Therapeutic Exercise * Bed Mobility Training * Transfer training * Gait Training Frequency of Treatment Expected * 12 visits/week Duration of Treatment Expected * 1 week Discharge Recommendations * Acute Rehab facility Discharge Recommendation - DME * Rolling Walker needed * in order to complete ADLs * and ambulation safely Discharge Recommendation Comments * strongly recommend acute rehab Comment Review of Relevant I have reviewed the following items brenda (where applicable) has been applied. Labs Laboratory Tests Test 09/10/19 16:47 09/10/19 20:49 09/11/19 04:30 09/11/19 07:20 Glucose (Fingerstick) 83 mg/dL (70-99) 103 mg/dL (70-99) 114 mg/dL (70-99) Triglycerides Level 87 mg/dL (0-150) Cholesterol Level 183 mg/dL (0-200) LDL Cholesterol, Calculated 125 mg/dL (0-100) VLDL Cholesterol, Calculated 17 mg/dL (0-40) Non-HDL Cholesterol Calculated 142 mg/dL (0-129) HDL Cholesterol 41 mg/dL (40-60) Cholesterol/HDL Ratio 4.5 Test 09/11/19 11:12 09/11/19 16:29 09/11/19 21:36 09/12/19 07:32 Glucose (Fingerstick) 122 mg/dL (70-99) 120 mg/dL (70-99) 103 mg/dL (70-99) 123 mg/dL (70-99) Laboratory Tests Test 09/11/19 16:29 09/11/19 21:36 09/12/19 07:32 Glucose (Fingerstick) 120 mg/dL (70-99) 103 mg/dL (70-99) 123 mg/dL (70-99) Medications Current Medications Ondansetron HCl (Zofran) 4 mg PRN Q4HRS PRN IV NAUSEA/VOMITING; Start 09/09/19 at 21:15; Stop 09/10/19 at 16:02; Status DC Acetaminophen (Tylenol) 650 mg PRN Q4HRS PRN PO TEMP OVER 100.4F OR MILD PAIN; Start 09/09/19 at 21:15; Stop 09/10/19 at 13:43; Status DC Clonidine HCl (Catapres) 0.1 mg PRN Q6HRS PRN PO SBP>160 OR DBP>90; Start 09/09/19 at 21:15; Stop 09/10/19 at 16:00; Status DC Docusate Sodium (Colace) 100 mg PRN BID PRN PO CONSTIPATION; Start 09/09/19 at 21:15; Stop 09/10/19 at 16:02; Status DC Enoxaparin Sodium (Lovenox 40mg Syringe) 40 mg DAILY SQ Last administered on 09/10/19at 09:56; Start 09/10/19 at 09:00; Stop 09/10/19 at 15:26; Status DC Labetalol HCl (Normodyne Iv Push) 10 mg PRN Q2HR PRN IVP HYPERTENSION; Start 09/09/19 at 21:15 Insulin Human Lispro (HumaLOG) 0-7 UNITS TIDACHC SQ Last administered on 09/10/19at 13:46; Start 09/09/19 at 21:30 Dextrose (Dextrose 50%-Water Syringe) 12.5 gm PRN Q15MIN PRN IV SEE COMMENTS; Start 09/09/19 at 21:15 Albuterol Sulfate (Ventolin Neb Soln) 2.5 mg PRN Q4HRS PRN INH WHEEZING; Start 09/09/19 at 21:15; Stop 09/10/19 at 16:01; Status DC Aspirin (Radha Aspirin) 325 mg DAILYWBKFT PO Last administered on 09/10/19at 09:55; Start 09/10/19 at 08:00; Stop 09/10/19 at 13:41; Status DC Atorvastatin Calcium (Lipitor) 40 mg QHS PO Last administered on 09/11/19at 20:12; Start 09/09/19 at 21:30 Clonidine HCl (Catapres) 0.2 mg BID PO Last administered on 09/12/19 09:15; Start 09/09/19 at 21:30 Acetaminophen/ Hydrocodone Bitart (Lortab 10/325) 1 tab PRN QHS PRN PO pain Last administered on 09/11/19 15:28; Start 09/09/19 at 21:15 Metformin HCl (Glucophage) 500 mg BIDWMEALS PO Last administered on 09/10/19 09:55; Start 09/10/19 at 08:00; Stop 09/10/19 at 13:42; Status DC Metoprolol Tartrate (Lopressor) 50 mg BID PO Last administered on 09/10/19 09:55; Start 09/09/19 at 21:30; Stop 09/10/19 at 17:48; Status DC Oxybutynin Chloride (Ditropan) 5 mg TID PO Last administered on 09/12/19 09:12; Start 09/09/19 at 21:30 Citalopram Hydrobromide (CeleXA) 20 mg DAILY PO Last administered on 09/12/19 09:12; Start 09/10/19 at 09:00 Non-Formulary Medication (Olmesartan/ Amlodipin/ Hcthiazid (Tribenzor 40-10-25 Mg Tablet)) 1 tab DAILY PO ; Start 09/10/19 at 09:00; Status UNV Losartan Potassium (Cozaar) 100 mg DAILY PO Last administered on 09/12/19 09:12; Start 09/10/19 at 09:00 Amlodipine Besylate (Norvasc) 10 mg DAILY PO Last administered on 09/12/19 09:13; Start 09/10/19 at 09:00 Hydrochlorothiazide (Hydrodiuril) 25 mg DAILY PO Last administered on 09/12/19 09:12; Start 09/10/19 at 09:00 Influenza Virus Vaccine Quadrival (Afluria Quad 2019-20 (3yr Up) Syringe) 0.5 ml ONCE ONCE VAX IM Last administered on 09/10/19 10:06; Start 09/10/19 at 09:00; Stop 09/10/19 at 09:01; Status DC Enoxaparin Sodium (Lovenox 40mg Syringe) 40 mg Q24H SQ ; Start 09/10/19 at 13:30; Status UNV Acetaminophen (Tylenol) 650 mg PRN Q6HRS PRN PO TEMP > 100.4F; Start 09/10/19 at 13:30; Stop 09/10/19 at 16:01; Status DC Acetaminophen (Tylenol Supp) 650 mg PRN Q4HRS PRN [place] TEMP > 100.4F; Start 09/10/19 at 13:30 Aspirin (Ecotrin) 325 mg DAILYWBKFT PO Last administered on 09/12/19at 09:12; Start 09/11/19 at 08:00 Aspirin (Aspirin Rectal Supp) 300 mg PRN DAILY PRN [place] IF UNABLE TO TAKE PO; Start 09/10/19 at 13:30 Iohexol (Omnipaque 350 Mg/ml) 75 ml 1X ONCE IV Last administered on 09/10/19at 15:22; Start 09/10/19 at 13:45; Stop 09/10/19 at 13:46; Status DC Metformin HCl (Glucophage) 500 mg BIDWMEALS PO ; Start 09/12/19 at 17:00 Info (CONTRAST GIVEN -- Rx MONITORING) 1 each PRN DAILY PRN MC SEE COMMENTS; Start 09/10/19 at 13:45; Stop 09/12/19 at 13:44 Enoxaparin Sodium (Lovenox 40mg Syringe) 40 mg BID SQ Last administered on 09/12/19at 09:11; Start 09/10/19 at 21:00 Sodium Chloride (Normal Saline Flush) 3 ml QSHIFT PRN IV AFTER MEDS AND BLOOD DRAWS; Start 09/10/19 at 15:45 Sodium Chloride 1,000 ml @ 70 mls/hr [id number] IV Last administered on 09/12/19at 10:25; Start 09/10/19 at 15:31 Ondansetron HCl (Zofran) 4 mg PRN Q4HRS PRN IV NAUSEA/VOMITING; Start 09/10/19 at 15:45 Zolpidem Tartrate (Ambien) 5 mg PRN QHS PRN PO INSOMNIA; Start 09/10/19 at 15:45 Acetaminophen (Tylenol) 650 mg PRN Q4HRS PRN PO TEMP OVER 100.4F OR MILD PAIN Last administered on 09/11/19at 03:41; Start 09/10/19 at 15:45 Acetaminophen (Tylenol) 650 mg PRN Q4HRS PRN GT TEMP OVER 100.4F OR MILD PAIN; Start 09/10/19 at 15:45 Al Hydroxide/Mg Hydroxide (Mylanta Plus Xs) 30 ml PRN DAILY PRN PO HEARTBURN / GAS; Start 09/10/19 at 15:45 Clonidine HCl (Catapres) 0.1 mg PRN Q6HRS PRN PO SBP>160 OR DBP>90; Start 09/10/19 at 15:45 Docusate Sodium (Colace) 100 mg PRN BID PRN PO CONSTIPATION Last administered on 09/11/19at 20:11; Start 09/10/19 at 15:45 Albuterol Sulfate (Ventolin Neb Soln) 2.5 mg PRN Q4HRS PRN NEB SHORTNESS OF BREATH; Start 09/10/19 at 15:45 Guaifenesin (Robitussin) 200 mg PRN Q4HRS PRN PO COUGH; Start 09/10/19 at 15:45 Lorazepam (Ativan) 0.5 mg PRN Q4HRS PRN PO ANXIETY / AGITATION; Start 09/10/19 at 15:45 Enoxaparin Sodium (Lovenox 40mg Syringe) 40 mg DAILY SQ ; Start 09/11/19 at 09:00; Stop 09/10/19 at 16:01; Status DC Hydralazine HCl (Apresoline Inj) 10 mg PRN Q4HRS PRN IVP ELEVATED BP, SEE COMMENTS; Start 09/10/19 at 18:00 Clopidogrel Bisulfate (Plavix) 75 mg DAILYWBKFT PO Last administered on 09/12/19at 09:12; Start 09/11/19 at 15:00 Active Scripts Active Proair Hfa Inhaler (Albuterol Sulfate) 8.5 Gm Hfa.aer.ad 2 Puff INH Q4-6HRS PRN Reported [place] 10-325 Tablet (Acetaminophen/Hydrocodone Bitart) 1 Each Tablet 1 Tab PO QHS Metoprolol Tartrate 50 Mg Tablet 1 Tab PO BID Oxybutynin Chloride 5 Mg Tablet 5 Mg PO TID Clonidine Hcl 0.1 Mg Tablet 0.2 Mg PO BID Escitalopram Oxalate 10 Mg Tablet 1 Tab PO DAILY Tribenzor 40-10-25 Mg Tablet (Olmesartan/Amlodipin/Hcthiazid) 1 Each Tablet 1 Tab PO DAILY Centrum Silver Tablet (Multivits-Min/Fa/Lycopene/Lut) 1 Each Tablet 1 Each PO Aspirin 325 Mg Tablet 1 Tab PO DAILY Atorvastatin Calcium 40 Mg Tablet 1 Tab PO DAILY Metformin Hcl 500 Mg Tablet 1 Tab PO BID Vitals/I & O Vital Sign - Last 24 Hours 09/11/19 09/11/19 09/11/19 09/11/19 11:29 15:14 15:28 16:35 Temp 98.1 98.1 98.1 98.1 Pulse 44 42 44 Resp 20 18 B/P (MAP) 132/93 (106) 123/63 (83) 140/69 (92) Pulse Ox 95 98 98 O2 Delivery Room Air Room Air Room Air 09/11/19 09/11/19 09/11/19 09/11/19 16:36 16:36 19:26 20:00 Temp 98.0 98.0 Pulse 42 56 48 Resp 18 B/P (MAP) 151/70 (97) 157/89 (111) 139/68 (91) Pulse Ox 97 O2 Delivery Room Air Room Air 09/11/19 09/11/19 09/12/19 09/12/19 20:12 23:21 03:45 07:00 Temp 97.6 97.7 98.1 97.6 97.7 98.1 Pulse 48 48 43 45 Resp 16 20 B/P (MAP) 139/68 149/78 (101) 147/77 (100) 144/74 (97) Pulse Ox 97 98 O2 Delivery Room Air Room Air 09/12/19 09/12/19 09/12/19 09/12/19 08:00 09:12 09:13 09:15 Pulse 45 45 45 B/P (MAP) 144/74 144/74 144/74 O2 Delivery Room Air Intake and Output 09/11/19 09/11/19 09/12/19 15:00 23:00 07:00 Intake Total 400 ml 300 ml 240 ml Balance 400 ml 300 ml 240 ml LESLY PATE MD Sep 12, 2019 11:25
[2019-09-12 11:26] VITALS: BP 149/89
--- NOTE | 2019-09-12 12:42 | CARD ---
MR#: [id number] Date of Study: 09/11/2019 Ordering Physician: CHEVY IRELAND, Referring Physician: CHEVY IRELAND, Tech: Daisy Warren RDCS APPROVED REPORT EXAM: Two-dimensional echocardiogram with contrast. Other Information Quality : PoorHR: 51bpm Rhythm : Bradycardia INDICATION CVA/TIA Echo Enhancing Agent Indication: Rule Out Septal Defect Agent/Amount Used: Agitated Saline 9mL 2D DIMENSIONS Left Atrium(2D)3.8 (1.6-4.0cm)IVSd1.2 (0.7-1.1cm) Aortic Root(2D)2.0 (2.0-3.7cm)LVDd4.9 (3.9-5.9cm) LVOT Diameter2.0 (1.8-2.4cm)PWd1.1 (0.7-1.1cm) LA Stgazb86 (18-58mL)LVDs3.0 (2.5-4.0cm) FS (%) 39.0 %SV78.1 ml Aortic Valve AoV Peak William.153.7cm/sAoV VTI37.5cm AO Peak GR.9.4mmHgLVOT Peak William.129.5cm/s AO Mean GR.6mmHgAVA (VMAX)2.72cm2 VITO (VTI)2.50cm2 Mitral Valve MV E Lrkssrbh89.8cm/sMV DECEL [id number] MV A Foufoqkb27.7cm/sE/A Ratio1.5 MV A [id number] TDI Lateral E' P. V9.00cm/sMedial E' P. V8.00cm/s E/Lateral E'9.6E/Medial E'10.9 Tricuspid Valve TR P. Pozgucmv540vx/sRAP [id number] TR Peak Gr.92ycHpYMYV90lcBs Pulmonary Vein S1 Lxumsvuw17.7cm/sD2 Lvxejgpi20.5cm/s LEFT VENTRICLE The left ventricle is normal size. There is borderline concentric left ventricular hypertrophy. The l eft ventricular systolic function is normal The ejection fraction is 50-55%. There is normal LV segme ntal wall motion. The left ventricular diastolic function and filling is normal for age. No left vent ricle thrombus noted on this study. There is no ventricular septal defect visualized. There is no lef t ventricular aneurysm. There is no mass noted in the left ventricle. RIGHT VENTRICLE The right ventricle is normal size. There is normal right ventricular wall thickness. The right ventr icular systolic function is normal. ATRIA The left atrium size is normal. The right atrium size is normal. The interatrial septum is intact wit h no evidence for an atrial septal defect or patent foramen ovale as noted on 2-D or Doppler imaging. Normal bubble study. AORTIC VALVE The aortic valve is normal in structure and function. Doppler and Color Flow revealed no significant aortic regurgitation. There is no significant aortic valvular stenosis. There is no aortic valvular v egetation. MITRAL VALVE The mitral valve is normal in structure and function. There is no evidence of mitral valve prolapse. There is no mitral valve stenosis. Doppler and Color Flow revealed mild mitral regurgitation. TRICUSPID VALVE The tricuspid valve is normal in structure and function. Doppler and Color Flow revealed mild tricusp id regurgitation. The PA pressure was estimated at 48 mmHg. There is no tricuspid valve prolapse or v egetation. There is no tricuspid valve stenosis. PULMONIC VALVE The pulmonary valve is normal in structure and function. Doppler and Color Flow revealed no pulmonic valvular regurgitation. There is no pulmonic valvular stenosis. GREAT VESSELS The aortic root is normal in size. Abnormal pulmonary veins. The IVC is normal in size and collapses >50% with inspiration. PERICARDIAL EFFUSION There is no pleural effusion. There is no evidence of significant pericardial effusion. Critical Notification Critical Value: No <Conclusion> The left ventricle is normal size. The left ventricular systolic function is normal The ejection fraction is 50-55%. There is borderline concentric left ventricular hypertrophy. The interatrial septum is intact with no evidence for an atrial septal defect or patent foramen ovale as noted on 2-D or Doppler imaging. Normal bubble study. Doppler and Color Flow revealed no significant aortic regurgitation. There is no significant aortic valvular stenosis. Doppler and Color Flow revealed mild mitral regurgitation. Doppler and Color Flow revealed mild tricuspid regurgitation. The PA pressure was estimated at 48 mmHg. Signed by : Kenyon Coello MD Electronically Approved : 09/12/2019 12:41:35
--- NOTE | 2019-09-12 12:57 | PDOC ---
PROGRESS NOTES Assessment Multifocal acute infarcts within the right nicole, left occipital lobe and right greater than left cerebellum. 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 Dempsey, neurology stroke team, who does not see a need for transfer or acute intervention therapy. He agrees with medical therapy. Try some mineral oil for cerumen Subjective Still has fullness in right ear, left hand was numb briefly this morning Objective Vital Signs Date Time Temp Pulse Resp B/P (MAP) Pulse Ox O2 Delivery O2 Flow Rate FiO2 09/12/19 11:26 98.0 42 20 149/89 (109) 97 Room Air 98.0 Intake and Output 09/12/19 07:00 Intake Total 940 ml Balance 940 ml Intake Oral 940 ml # Voids 6 PHYSICAL EXAM Alert. Oriented to time, place and person. PERRL. EOMI. CN: no focal findings. Muscle tone: normal. Muscle strength: 5/5 DTR: 2+ Plantar reflex: flexor Gait: not examined in bed. Sensory exam: no abnormal findings. No cerebellar signs elicited. Review of Relevant I have reviewed the following items brenda (where applicable) has been applied. Labs Laboratory Tests Test 09/10/19 16:47 09/10/19 20:49 09/11/19 04:30 09/11/19 07:20 Glucose (Fingerstick) 83 mg/dL (70-99) 103 mg/dL (70-99) 114 mg/dL (70-99) Triglycerides Level 87 mg/dL (0-150) Cholesterol Level 183 mg/dL (0-200) LDL Cholesterol, Calculated 125 mg/dL (0-100) VLDL Cholesterol, Calculated 17 mg/dL (0-40) Non-HDL Cholesterol Calculated 142 mg/dL (0-129) HDL Cholesterol 41 mg/dL (40-60) Cholesterol/HDL Ratio 4.5 Test 09/11/19 11:12 09/11/19 16:29 09/11/19 21:36 09/12/19 07:32 Glucose (Fingerstick) 122 mg/dL (70-99) 120 mg/dL (70-99) 103 mg/dL (70-99) 123 mg/dL (70-99) Test 09/12/19 11:03 Glucose (Fingerstick) 117 mg/dL (70-99) Laboratory Tests Test 09/11/19 16:29 09/11/19 21:36 09/12/19 07:32 09/12/19 11:03 Glucose (Fingerstick) 120 mg/dL (70-99) 103 mg/dL (70-99) 123 mg/dL (70-99) 117 mg/dL (70-99) Medications Current Medications Ondansetron HCl (Zofran) 4 mg PRN Q4HRS PRN IV NAUSEA/VOMITING; Start 09/09/19 at 21:15; Stop 09/10/19 at 16:02; Status DC Acetaminophen (Tylenol) 650 mg PRN Q4HRS PRN PO TEMP OVER 100.4F OR MILD PAIN; Start 09/09/19 at 21:15; Stop 09/10/19 at 13:43; Status DC Clonidine HCl (Catapres) 0.1 mg PRN Q6HRS PRN PO SBP>160 OR DBP>90; Start 09/09/19 at 21:15; Stop 09/10/19 at 16:00; Status DC Docusate Sodium (Colace) 100 mg PRN BID PRN PO CONSTIPATION; Start 09/09/19 at 21:15; Stop 09/10/19 at 16:02; Status DC Enoxaparin Sodium (Lovenox 40mg Syringe) 40 mg DAILY SQ Last administered on 09/10/19at 09:56; Start 09/10/19 at 09:00; Stop 09/10/19 at 15:26; Status DC Labetalol HCl (Normodyne Iv Push) 10 mg PRN Q2HR PRN IVP HYPERTENSION; Start 09/09/19 at 21:15 Insulin Human Lispro (HumaLOG) 0-7 UNITS TIDACHC SQ Last administered on 09/10/19at 13:46; Start 09/09/19 at 21:30 Dextrose (Dextrose 50%-Water Syringe) 12.5 gm PRN Q15MIN PRN IV SEE COMMENTS; Start 09/09/19 at 21:15 Albuterol Sulfate (Ventolin Neb Soln) 2.5 mg PRN Q4HRS PRN INH WHEEZING; Start 09/09/19 at 21:15; Stop 09/10/19 at 16:01; Status DC Aspirin (Radha Aspirin) 325 mg DAILYWBKFT PO Last administered on 09/10/19 09:55; Start 09/10/19 at 08:00; Stop 09/10/19 at 13:41; Status DC Atorvastatin Calcium (Lipitor) 40 mg QHS PO Last administered on 09/11/19 20 :12; Start 09/09/19 at 21:30 Clonidine HCl (Catapres) 0.2 mg BID PO Last administered on 09/12/19 09:15; Start 09/09/19 at 21:30 Acetaminophen/ Hydrocodone Bitart (Lortab 10/325) 1 tab PRN QHS PRN PO pain Last administered on 09/11/19 15:28; Start 09/09/19 at 21:15 Metformin HCl (Glucophage) 500 mg BIDWMEALS PO Last administered on 09/10/19 09:55; Start 09/10/19 at 08:00; Stop 09/10/19 at 13:42; Status DC Metoprolol Tartrate (Lopressor) 50 mg BID PO Last administered on 09/10/19 09:55; Start 09/09/19 at 21:30; Stop 09/10/19 at 17:48; Status DC Oxybutynin Chloride (Ditropan) 5 mg TID PO Last administered on 09/12/19at 09:12; Start 09/09/19 at 21:30 Citalopram Hydrobromide (CeleXA) 20 mg DAILY PO Last administered on 09/12/19 09:12; Start 09/10/19 at 09:00 Non-Formulary Medication (Olmesartan/ Amlodipin/ Hcthiazid (Tribenzor 40-10-25 Mg Tablet)) 1 tab DAILY PO ; Start 09/10/19 at 09:00; Status UNV Losartan Potassium (Cozaar) 100 mg DAILY PO Last administered on 09/12/19at 09:12; Start 09/10/19 at 09:00 Amlodipine Besylate (Norvasc) 10 mg DAILY PO Last administered on 09/12/19at 09:13; Start 09/10/19 at 09:00 Hydrochlorothiazide (Hydrodiuril) 25 mg DAILY PO Last administered on 09/12/19at 09:12; Start 09/10/19 at 09:00 Influenza Virus Vaccine Quadrival (Afluria Quad 2019-20 (3yr Up) Syringe) 0.5 ml ONCE ONCE VAX IM Last administered on 09/10/19at 10:06; Start 09/10/19 at 09:00; Stop 09/10/19 at 09:01; Status DC Enoxaparin Sodium (Lovenox 40mg Syringe) 40 mg Q24H SQ ; Start 09/10/19 at 13:30; Status UNV Acetaminophen (Tylenol) 650 mg PRN Q6HRS PRN PO TEMP > 100.4F; Start 09/10/19 at 13:30; Stop 09/10/19 at 16:01; Status DC Acetaminophen (Tylenol Supp) 650 mg PRN Q4HRS PRN AK TEMP > 100.4F; Start 09/10/19 at 13:30 Aspirin (Ecotrin) 325 mg DAILYWBKFT PO Last administered on 09/12/19at 09:12; Start 09/11/19 at 08:00 Aspirin (Aspirin Rectal Supp) 300 mg PRN DAILY PRN AK IF UNABLE TO TAKE PO; Start 09/10/19 at 13:30 Iohexol (Omnipaque 350 Mg/ml) 75 ml 1X ONCE IV Last administered on 09/10/19at 15:22; Start 09/10/19 at 13:45; Stop 09/10/19 at 13:46; Status DC Metformin HCl (Glucophage) 500 mg BIDWMEALS PO ; Start 09/12/19 at 17:00 Info (CONTRAST GIVEN -- Rx MONITORING) 1 each PRN DAILY PRN MC SEE COMMENTS; Start 09/10/19 at 13:45; Stop 09/12/19 at 13:44 Enoxaparin Sodium (Lovenox 40mg Syringe) 40 mg BID SQ Last administered on 09/12/19at 09:11; Start 09/10/19 at 21:00 Sodium Chloride (Normal Saline Flush) 3 ml QSHIFT PRN IV AFTER MEDS AND BLOOD DRAWS; Start 09/10/19 at 15:45 Sodium Chloride 1,000 ml @ 70 mls/hr [id number] IV Last administered on 09/12/19at 10:25; Start 09/10/19 at 15:31 Ondansetron HCl (Zofran) 4 mg PRN Q4HRS PRN IV NAUSEA/VOMITING; Start 09/10/19 at 15:45 Zolpidem Tartrate (Ambien) 5 mg PRN QHS PRN PO INSOMNIA; Start 09/10/19 at 15:45 Acetaminophen (Tylenol) 650 mg PRN Q4HRS PRN PO TEMP OVER 100.4F OR MILD PAIN Last administered on 09/11/19at 03:41; Start 09/10/19 at 15:45 Acetaminophen (Tylenol) 650 mg PRN Q4HRS PRN GT TEMP OVER 100.4F OR MILD PAIN; Start 09/10/19 at 15:45 Al Hydroxide/Mg Hydroxide (Mylanta Plus Xs) 30 ml PRN DAILY PRN PO HEARTBURN / GAS; Start 09/10/19 at 15:45 Clonidine HCl (Catapres) 0.1 mg PRN Q6HRS PRN PO SBP>160 OR DBP>90; Start 09/10/19 at 15:45 Docusate Sodium (Colace) 100 mg PRN BID PRN PO CONSTIPATION Last administered on 09/11/19at 20:11; Start 09/10/19 at 15:45 Albuterol Sulfate (Ventolin Neb Soln) 2.5 mg PRN Q4HRS PRN NEB SHORTNESS OF BREATH; Start 09/10/19 at 15:45 Guaifenesin (Robitussin) 200 mg PRN Q4HRS PRN PO COUGH; Start 09/10/19 at 15:45 Lorazepam (Ativan) 0.5 mg PRN Q4HRS PRN PO ANXIETY / AGITATION; Start 09/10/19 at 15:45 Enoxaparin Sodium (Lovenox 40mg Syringe) 40 mg DAILY SQ ; Start 09/11/19 at 09:00; Stop 09/10/19 at 16:01; Status DC Hydralazine HCl (Apresoline Inj) 10 mg PRN Q4HRS PRN IVP ELEVATED BP, SEE COMMENTS; Start 09/10/19 at 18:00 Clopidogrel Bisulfate (Plavix) 75 mg DAILYWBKFT PO Last administered on 09/12/19at 09:12; Start 09/11/19 at 15:00 Active Scripts Active Proair Hfa Inhaler (Albuterol Sulfate) 8.5 Gm Hfa.aer.ad 2 Puff INH Q4-6HRS PRN Reported [place] 10-325 Tablet (Acetaminophen/Hydrocodone Bitart) 1 Each Tablet 1 Tab PO QHS Metoprolol Tartrate 50 Mg Tablet 1 Tab PO BID Oxybutynin Chloride 5 Mg Tablet 5 Mg PO TID Clonidine Hcl 0.1 Mg Tablet 0.2 Mg PO BID Escitalopram Oxalate 10 Mg Tablet 1 Tab PO DAILY Tribenzor 40-10-25 Mg Tablet (Olmesartan/Amlodipin/Hcthiazid) 1 Each Tablet 1 Tab PO DAILY Centrum Silver Tablet (Multivits-Min/Fa/Lycopene/Lut) 1 Each Tablet 1 Each PO Aspirin 325 Mg Tablet 1 Tab PO DAILY Atorvastatin Calcium 40 Mg Tablet 1 Tab PO DAILY Metformin Hcl 500 Mg Tablet 1 Tab PO BID Vitals/I & O Vital Sign - Last 24 Hours 09/11/19 09/11/19 09/11/19 09/11/19 15:14 15:28 16:35 16:36 Temp 98.1 98.1 Pulse 42 44 42 Resp 18 B/P (MAP) 123/63 (83) 140/69 (92) 151/70 (97) Pulse Ox 98 98 O2 Delivery Room Air Room Air 09/11/19 09/11/19 09/11/19 09/11/19 16:36 19:26 20:00 20:12 Temp 98.0 98.0 Pulse 56 48 48 Resp 18 B/P (MAP) 157/89 (111) 139/68 (91) 139/68 Pulse Ox 97 O2 Delivery Room Air Room Air 09/11/19 09/12/19 09/12/19 09/12/19 23:21 03:45 07:00 08:00 Temp 97.6 97.7 98.1 97.6 97.7 98.1 Pulse 48 43 45 Resp 16 20 B/P (MAP) 149/78 (101) 147/77 (100) 144/74 (97) Pulse Ox 97 98 O2 Delivery Room Air Room Air Room Air 09/12/19 09/12/19 09/12/19 09/12/19 09:12 09:13 09:15 11:26 Temp 98.0 98.0 Pulse 45 45 45 42 Resp 20 B/P (MAP) 144/74 144/74 144/74 149/89 (109) Pulse Ox 97 O2 Delivery Room Air Intake and Output 09/11/19 09/11/19 09/12/19 15:00 23:00 07:00 Intake Total 400 ml 300 ml 240 ml Balance 400 ml 300 ml 240 ml Images LEFT VENTRICLE The left ventricle is normal size. There is borderline concentric left ventricular hypertrophy. The left ventricular systolic function is normal The ejection fraction is 50-55%. There is normal LV segmental wall motion. The left ventricular diastolic function and filling is normal for age. No left ventricle thrombus noted on this study. There is no ventricular septal defect visualized. There is no left ventricular aneurysm. There is no mass noted in the left ventricle. RIGHT VENTRICLE The right ventricle is normal size. There is normal right ventricular wall thickness. The right ventricular systolic function is normal. ATRIA The left atrium size is normal. The right atrium size is normal. The interatrial septum is intact with no evidence for an atrial septal defect or patent foramen ovale as noted on 2-D or Doppler imaging. Normal bubble study. AORTIC VALVE The aortic valve is normal in structure and function. Doppler and Color Flow revealed no significant aortic regurgitation. There is no significant aortic valvular stenosis. There is no aortic valvular vegetation. MITRAL VALVE The mitral valve is normal in structure and function. There is no evidence of mitral valve prolapse. There is no mitral valve stenosis. Doppler and Color Flow revealed mild mitral regurgitation. TRICUSPID VALVE The tricuspid valve is normal in structure and function. Doppler and Color Flow revealed mild tricuspid regurgitation. The PA pressure was estimated at 48 mmHg. There is no tricuspid valve prolapse or vegetation. There is no tricuspid valve stenosis. PULMONIC VALVE The pulmonary valve is normal in structure and function. Doppler and Color Flow revealed no pulmonic valvular regurgitation. There is no pulmonic valvular stenosis. GREAT VESSELS The aortic root is normal in size. Abnormal pulmonary veins. The IVC is normal in size and collapses >50% with inspiration. PERICARDIAL EFFUSION There is no pleural effusion. There is no evidence of significant pericardial effusion. Critical Notification Critical Value: No <Conclusion> The left ventricle is normal size. The left ventricular systolic function is normal The ejection fraction is 50-55%. There is borderline concentric left ventricular hypertrophy. The interatrial septum is intact with no evidence for an atrial septal defect or patent foramen ovale as noted on 2-D or Doppler imaging. Normal bubble study. Doppler and Color Flow revealed no significant aortic regurgitation. There is no significant aortic valvular stenosis. Doppler and Color Flow revealed mild mitral regurgitation. Doppler and Color Flow revealed mild tricuspid regurgitation. The PA pressure was estimated at 48 mmHg. CHEVY IRELAND MD Sep 12, 2019 12:57
[2019-09-12] MEDS ORDERED: CARBAMIDE PEROXIDE 6.5% OTIC SOLUTION 15ML BOTTLE. AD ONE (13:00)
[2019-09-12] MEDS: ACETAMINOPHEN 325 MG TABLET. PO PRN (13:19)
[2019-09-12 15:27] VITALS: BP 137/83
--- NOTE | 2019-09-12 16:07 | PDOC ---
PROGRESS NOTES Subjective Subjective Patient seen and examined Objective Objective Vital Signs Date Time Temp Pulse Resp B/P (MAP) Pulse Ox O2 Delivery O2 Flow Rate FiO2 09/12/19 15:27 98.1 45 20 137/83 (101) 98 Room Air 98.1 Intake and Output 09/12/19 07:00 Intake Total 940 ml Balance 940 ml Intake Oral 940 ml # Voids 6 Physical Exam Abdomen: Normal bowel sounds Heart: Other (mild bradycardia) General: No acute distress Lungs: Clear to auscultation Assessment Assessment 1. Multiple acute infarcts. Followed by neurology. Discussion with [facility] as above. Echocardiogram showed a normal bubble study and normal LV systolic function. 2. Pulmonary HTN with COPD and ZAHIDA. Continue present medications. 3. Chronic diastolic CHF: compensated 4. HTN 5. DM2/HLP 6. Morbid obesity 7. CKD3 8. Sinus bradycardia: Rate mildly improved now and 48 off beta blockers. We'll continue to monitor. Comment Review of Relevant I have reviewed the following items brenda (where applicable) has been applied. Labs Laboratory Tests Test 09/10/19 16:47 09/10/19 20:49 09/11/19 04:30 09/11/19 07:20 Glucose (Fingerstick) 83 mg/dL (70-99) 103 mg/dL (70-99) 114 mg/dL (70-99) Triglycerides Level 87 mg/dL (0-150) Cholesterol Level 183 mg/dL (0-200) LDL Cholesterol, Calculated 125 mg/dL (0-100) VLDL Cholesterol, Calculated 17 mg/dL (0-40) Non-HDL Cholesterol Calculated 142 mg/dL (0-129) HDL Cholesterol 41 mg/dL (40-60) Cholesterol/HDL Ratio 4.5 Test 09/11/19 11:12 09/11/19 16:29 09/11/19 21:36 09/12/19 07:32 Glucose (Fingerstick) 122 mg/dL (70-99) 120 mg/dL (70-99) 103 mg/dL (70-99) 123 mg/dL (70-99) Test 09/12/19 11:03 Glucose (Fingerstick) 117 mg/dL (70-99) Laboratory Tests Test 09/11/19 16:29 09/11/19 21:36 09/12/19 07:32 09/12/19 11:03 Glucose (Fingerstick) 120 mg/dL (70-99) 103 mg/dL (70-99) 123 mg/dL (70-99) 117 mg/dL (70-99) Medications Current Medications Ondansetron HCl (Zofran) 4 mg PRN Q4HRS PRN IV NAUSEA/VOMITING; Start 09/09/19 at 21:15; Stop 09/10/19 at 16:02; Status DC Acetaminophen (Tylenol) 650 mg PRN Q4HRS PRN PO TEMP OVER 100.4F OR MILD PAIN; Start 09/09/19 at 21:15; Stop 09/10/19 at 13:43; Status DC Clonidine HCl (Catapres) 0.1 mg PRN Q6HRS PRN PO SBP>160 OR DBP>90; Start 09/09/19 at 21:15; Stop 09/10/19 at 16:00; Status DC Docusate Sodium (Colace) 100 mg PRN BID PRN PO CONSTIPATION; Start 09/09/19 at 21:15; Stop 09/10/19 at 16:02; Status DC Enoxaparin Sodium (Lovenox 40mg Syringe) 40 mg DAILY SQ Last administered on 09/10/19at 09:56; Start 09/10/19 at 09:00; Stop 09/10/19 at 15:26; Status DC Labetalol HCl (Normodyne Iv Push) 10 mg PRN Q2HR PRN IVP HYPERTENSION; Start 09/09/19 at 21:15 Insulin Human Lispro (HumaLOG) 0-7 UNITS TIDACHC SQ Last administered on 1 11/11/18at 13:46; Start 09/09/19 at 21:30 Dextrose (Dextrose 50%-Water Syringe) 12.5 gm PRN Q15MIN PRN IV SEE COMMENTS; Start 09/09/19 at 21:15 Albuterol Sulfate (Ventolin Neb Soln) 2.5 mg PRN Q4HRS PRN INH WHEEZING; Start 09/09/19 at 21:15; Stop 09/10/19 at 16:01; Status DC Aspirin (Radha Aspirin) 325 mg DAILYWBKFT PO Last administered on 09/10/19at 09:55; Start 09/10/19 at 08:00; Stop 09/10/19 at 13:41; Status DC Atorvastatin Calcium (Lipitor) 40 mg QHS PO Last administered on 09/11/19 20:12; Start 09/09/19 at 21:30 Clonidine HCl (Catapres) 0.2 mg BID PO Last administered on 09/12/19 09:15; Start 09/09/19 at 21:30 Acetaminophen/ Hydrocodone Bitart (Lortab 10/325) 1 tab PRN QHS PRN PO pain Last administered on 09/11/19 15:28; Start 09/09/19 at 21:15 Metformin HCl (Glucophage) 500 mg BIDWMEALS PO Last administered on 09/10/19 09:55; Start 09/10/19 at 08:00; Stop 09/10/19 at 13:42; Status DC Metoprolol Tartrate (Lopressor) 50 mg BID PO Last administered on 09/10/19 09:55; Start 09/09/19 at 21:30; Stop 09/10/19 at 17:48; Status DC Oxybutynin Chloride (Ditropan) 5 mg TID PO Last administered on 09/12/19 13:19; Start 09/09/19 at 21:30 Citalopram Hydrobromide (CeleXA) 20 mg DAILY PO Last administered on 09/12/19 09:12; Start 09/10/19 at 09:00 Non-Formulary Medication (Olmesartan/ Amlodipin/ Hcthiazid (Tribenzor 40-10-25 Mg Tablet)) 1 tab DAILY PO ; Start 09/10/19 at 09:00; Status UNV Losartan Potassium (Cozaar) 100 mg DAILY PO Last administered on 09/12/19 09:12; Start 09/10/19 at 09:00 Amlodipine Besylate (Norvasc) 10 mg DAILY PO Last administered on 09/12/19 09:13; Start 09/10/19 at 09:00 Hydrochlorothiazide (Hydrodiuril) 25 mg DAILY PO Last administered on 09/12/19 09:12; Start 09/10/19 at 09:00 Influenza Virus Vaccine Quadrival (Afluria Quad 2019-20 (3yr Up) Syringe) 0.5 ml ONCE ONCE VAX IM Last administered on 09/10/19 10:06; Start 09/10/19 at 09:00; Stop 09/10/19 at 09:01; Status DC Enoxaparin Sodium (Lovenox 40mg Syringe) 40 mg Q24H SQ ; Start 09/10/19 at 13:30; Status UNV Acetaminophen (Tylenol) 650 mg PRN Q6HRS PRN PO TEMP > 100.4F; Start 09/10/19 at 13:30; Stop 09/10/19 at 16:01; Status DC Acetaminophen (Tylenol Supp) 650 mg PRN Q4HRS PRN ID TEMP > 100.4F; Start 09/10/19 at 13:30 Aspirin (Ecotrin) 325 mg DAILYWBKFT PO Last administered on 09/12/19at 09:12; Start 09/11/19 at 08:00 Aspirin (Aspirin Rectal Supp) 300 mg PRN DAILY PRN ID IF UNABLE TO TAKE PO; Start 09/10/19 at 13:30 Iohexol (Omnipaque 350 Mg/ml) 75 ml 1X ONCE IV Last administered on 09/10/19at 15:22; Start 09/10/19 at 13:45; Stop 09/10/19 at 13:46; Status DC Metformin HCl (Glucophage) 500 mg BIDWMEALS PO ; Start 09/12/19 at 17:00 Info (CONTRAST GIVEN -- Rx MONITORING) 1 each PRN DAILY PRN MC SEE COMMENTS; Start 09/10/19 at 13:45; Stop 09/12/19 at 13:44; Status DC Enoxaparin Sodium (Lovenox 40mg Syringe) 40 mg BID SQ Last administered on 08/29 02/14at 09:11; Start 09/10/19 at 21:00 Sodium Chloride (Normal Saline Flush) 3 ml QSHIFT PRN IV AFTER MEDS AND BLOOD DRAWS; Start 09/10/19 at 15:45 Sodium Chloride 1,000 ml @ 70 mls/hr [id number] IV Last administered on 09/12/19at 10:25; Start 09/10/19 at 15:31 Ondansetron HCl (Zofran) 4 mg PRN Q4HRS PRN IV NAUSEA/VOMITING; Start 09/10/19 at 15:45 Zolpidem Tartrate (Ambien) 5 mg PRN QHS PRN PO INSOMNIA; Start 09/10/19 at 15:45 Acetaminophen (Tylenol) 650 mg PRN Q4HRS PRN PO TEMP OVER 100.4F OR MILD PAIN Last administered on 09/12/19at 13:19; Start 09/10/19 at 15:45 Acetaminophen (Tylenol) 650 mg PRN Q4HRS PRN GT TEMP OVER 100.4F OR MILD PAIN; Start 09/10/19 at 15:45 Al Hydroxide/Mg Hydroxide (Mylanta Plus Xs) 30 ml PRN DAILY PRN PO HEARTBURN / GAS; Start 09/10/19 at 15:45 Clonidine HCl (Catapres) 0.1 mg PRN Q6HRS PRN PO SBP>160 OR DBP>90; Start 09/10/19 at 15:45 Docusate Sodium (Colace) 100 mg PRN BID PRN PO CONSTIPATION Last administered on 09/11/19at 20:11; Start 09/10/19 at 15:45 Albuterol Sulfate (Ventolin Neb Soln) 2.5 mg PRN Q4HRS PRN NEB SHORTNESS OF BREATH; Start 09/10/19 at 15:45 Guaifenesin (Robitussin) 200 mg PRN Q4HRS PRN PO COUGH; Start 09/10/19 at 15:45 Lorazepam (Ativan) 0.5 mg PRN Q4HRS PRN PO ANXIETY / AGITATION; Start 09/10/19 at 15:45 Enoxaparin Sodium (Lovenox 40mg Syringe) 40 mg DAILY SQ ; Start 09/11/19 at 09:00; Stop 09/10/19 at 16:01; Status DC Hydralazine HCl (Apresoline Inj) 10 mg PRN Q4HRS PRN IVP ELEVATED BP, SEE COMMENTS; Start 09/10/19 at 18:00 Clopidogrel Bisulfate (Plavix) 75 mg DAILYWBKFT PO Last administered on 09/12/19at 09:12; Start 09/11/19 at 15:00 Carbamide Peroxide (Debrox) 5 drop 1X ONCE AD Last administered on 09/12/19at 13:00; Start 09/12/19 at 13:00; Stop 09/12/19 at 13:02; Status DC Active Scripts Active Proair Hfa Inhaler (Albuterol Sulfate) 8.5 Gm Hfa.aer.ad 2 Puff INH Q4-6HRS PRN Reported [place] 10-325 Tablet (Acetaminophen/Hydrocodone Bitart) 1 Each Tablet 1 Tab PO QHS Metoprolol Tartrate 50 Mg Tablet 1 Tab PO BID Oxybutynin Chloride 5 Mg Tablet 5 Mg PO TID Clonidine Hcl 0.1 Mg Tablet 0.2 Mg PO BID Escitalopram Oxalate 10 Mg Tablet 1 Tab PO DAILY Tribenzor 40-10-25 Mg Tablet (Olmesartan/Amlodipin/Hcthiazid) 1 Each Tablet 1 Tab PO DAILY Centrum Silver Tablet (Multivits-Min/Fa/Lycopene/Lut) 1 Each Tablet 1 Each PO Aspirin 325 Mg Tablet 1 Tab PO DAILY Atorvastatin Calcium 40 Mg Tablet 1 Tab PO DAILY Metformin Hcl 500 Mg Tablet 1 Tab PO BID Vitals/I & O Vital Sign - Last 24 Hours 09/11/19 09/11/19 09/11/19 09/11/19 16:35 16:36 16:36 19:26 Temp 98.0 98.0 Pulse 44 42 56 48 Resp 18 B/P (MAP) 140/69 (92) 151/70 (97) 157/89 (111) 139/68 (91) Pulse Ox 97 O2 Delivery Room Air 09/11/19 09/11/19 09/11/19 09/12/19 20:00 20:12 23:21 03:45 Temp 97.6 97.7 97.6 97.7 Pulse 48 48 43 Resp 16 B/P (MAP) 139/68 149/78 (101) 147/77 (100) Pulse Ox 97 O2 Delivery Room Air Room Air 09/12/19 09/12/19 09/12/19 09/12/19 07:00 08:00 09:12 09:13 Temp 98.1 98.1 Pulse 45 45 45 Resp 20 B/P (MAP) 144/74 (97) 144/74 144/74 Pulse Ox 98 O2 Delivery Room Air Room Air 09/12/19 09/12/19 09/12/19 09:15 11:26 15:27 Temp 98.0 98.1 98.0 98.1 Pulse 45 42 45 Resp 20 20 B/P (MAP) 144/74 149/89 (109) 137/83 (101) Pulse Ox 97 98 O2 Delivery Room Air Room Air Intake and Output 09/11/19 09/11/19 09/12/19 15:00 23:00 07:00 Intake Total 400 ml 300 ml 240 ml Balance 400 ml 300 ml 240 ml SERINA BREWER MD Sep 12, 2019 16:07
[2019-09-12] MEDS: metFORMIN 500 MG TABLET PO SCH (16:54)
[2019-09-12] MEDS ORDERED: MAGNESIUM HYDROXIDE 2,400 MG/30 ML ORAL.SUSP. PO ONE (19:15)
[2019-09-12 19:24] VITALS: BP 157/76
[2019-09-12] MEDS ORDERED: PSYLLIUM HUSK (SUGAR FREE) 1 PKT PACKET PO SCH (19:30)
[2019-09-12] MEDS ORDERED: POLYETHYLENE GLYCOL 3350 17 GM PACKET. PO ONE (19:30)
[2019-09-12] MEDS: ATORVASTATIN CALCIUM 40 MG TABLET. PO SCH (20:15)
[2019-09-12] MEDS: PSYLLIUM HUSK (SUGAR FREE) 1 PKT PACKET PO SCH (20:30)
[2019-09-12 23:34] VITALS: BP 153/76
[2019-09-13] MEDS: IV NORMAL SALINE 1000ML BAG 1,000 ML IV SCH ×2 (00:43→14:24)
[2019-09-13 03:43] VITALS: BP 167/77
[2019-09-13 07:00] VITALS: BP 147/77
[2019-09-13] MEDS: INSULIN LISPRO 300 UNITS/3 ML VIAL. SQ SCH ×4 (07:30→21:00)
[2019-09-13] MEDS ORDERED: PSYLLIUM HUSK (SUGAR FREE) 1 PKT PACKET PO SCH (09:00)
[2019-09-13] MEDS: PSYLLIUM HUSK (SUGAR FREE) 1 PKT PACKET PO SCH (09:12)
[2019-09-13] MEDS: POLYETHYLENE GLYCOL 3350 17 GM PACKET. PO SCH (09:12)
[2019-09-13] MEDS: LOSARTAN POTASSIUM 50 MG TABLET. PO SCH (09:16)
[2019-09-13] MEDS: hydroCHLOROthiazide 25 MG TABLET PO SCH (09:16)
[2019-09-13] MEDS: CLOPIDOGREL BISULFATE 75 MG TABLET PO SCH (09:17)
[2019-09-13] MEDS: ASPIRIN ENTERIC COATED 325 MG TABLET.DR. PO SCH (09:17)
[2019-09-13] MEDS: OXYBUTYNIN CHLORIDE 5 MG TABLET PO SCH ×3 (09:17→20:18)
[2019-09-13] MEDS: amLODIPine BESYLATE 10 MG TABLET PO SCH (09:17)
[2019-09-13] MEDS: CITALOPRAM 20 MG TABLET. PO SCH (09:17)
[2019-09-13] MEDS: cloNIDine HCL 0.1 MG TABLET PO SCH ×2 (09:18→20:19)
[2019-09-13] MEDS: ENOXAPARIN 40 MG/0.4 ML SYRINGE. SQ SCH ×2 (09:18→20:20)
[2019-09-13] MEDS: metFORMIN 500 MG TABLET PO SCH ×2 (09:18→18:06)
[2019-09-13 11:00] VITALS: BP 147/90
--- NOTE | 2019-09-13 14:54 | PDOC ---
PROGRESS NOTES Assessment Assessment IMPRESSION: Multiple acute infarcts in the right nicole, left occpital lobe, and bilateral cerebellum right > left. Basilar A stenosis. Bilateral P1 of [employer] vascular disease. Dizziness. HTN. CHF. Hearing loss. Former smoker x 30 years. Morbid obesity. Other medical diseases. RECOMMENDATIONS/PLAN: Continue Plavix 75 mg daily. Continue ASA daily. Continue Lipitor HS. Treat medical diseases. Weight reduction. PT/OT. SUBJECTIVE: No new complaints. OBJECTIVE: Refer to CTA and MRI. Past Medical History Cardiovascular: CHF (cardiomyopathy), HTN Pulmonary: Other (sleep apnea) Heme/Onc: Cancer (colon) Psych: Anxiety, Depression Musculoskeletal: Osteoarthritis (knees) Past Surgical History Cataract Removal, , Hernia Repair (abdominal times 3), Hysterectomy, Colon Resection (colostomy) Family History CAD Social History , retired, no alcohol or tobacco Allergies No Known Drug Allergies (Unverified , 08/06/19) ROS Negative for fever, chills, weight loss, shortness of breath, chest pain, indigestion, hematochezia, melena, and dysuria. Full 14-point review of systems is negative. MEDICATIONS: Refer to MAR PHYSICAL EXAMINATION: General appearance in no acute distress. HEENT: Normocephalic and nontraumatic. Eyes, nose, ears, and throat are unremarkable. Neck is supple. No lymphadenopathy. No Crepitus. Cardiovascular: S1, S2, regular rate and rhythm. Pulmonary: Clear to auscultation bilaterally. Abdomen: Bowel sounds are positive. Extremities: No rash, lesions, or edema. No restriction of range of motion NEUROLOGICAL EXAMINATION: Awake. Partially oriented to time, place and person. PERRL. EOMI. CN: no focal findings. Muscle tone: within normal. Muscle strength: 4+ DTR: 1- Plantar reflex: Neutral response bilaterally Gait: not examined in chair. Sensory exam: no acute abnormal findings. F-T-N test fine. Objective Objective Vital Signs Date Time Temp Pulse Resp B/P (MAP) Pulse Ox O2 Delivery O2 Flow Rate FiO2 09/13/19 11:00 98.0 48 20 147/90 (109) 97 Room Air 98.0 Intake and Output 09/13/19 07:00 Intake Total 1400 ml Output Total 900 ml Balance 500 ml Intake Oral 400 ml IV Total 1000 ml Output Urine Total 900 ml # Voids 4 Vitals Signs Vitals VS - Last 72 Hours, by Label Date Time Temp Pulse Resp B/P (MAP) Pulse Ox O2 Delivery O2 Flow Rate FiO2 09/13/19 11:00 98.0 48 20 147/90 (109) 97 Room Air 98.0 09/13/19 09:18 45 147/77 09/13/19 09:17 45 147/77 09/13/19 09:16 45 147/77 09/13/19 08:30 Room Air 09/13/19 07:00 97.7 45 20 147/77 (100) 98 Room Air 97.7 09/13/19 03:43 97.5 47 20 167/77 (107) 98 Room Air 97.5 09/12/19 23:34 98.2 48 18 153/76 (101) 96 Room Air 98.2 09/12/19 20:16 48 157/76 09/12/19 20:00 Room Air 09/12/19 19:24 98.4 48 20 157/76 (103) 97 Room Air 98.4 09/12/19 15:27 98.1 45 20 137/83 (101) 98 Room Air 98.1 09/12/19 11:26 98.0 42 20 149/89 (109) 97 Room Air 98.0 09/12/19 09:15 45 144/74 09/12/19 09:13 45 144/74 09/12/19 09:12 45 144/74 09/12/19 08:00 Room Air 09/12/19 07:00 98.1 45 20 144/74 (97) 98 Room Air 98.1 Laboratory Laboratory Laboratory Tests Test 09/12/19 16:58 09/12/19 21:09 09/13/19 08:01 09/13/19 11:21 Glucose (Fingerstick) 119 mg/dL (70-99) 98 mg/dL (70-99) 116 mg/dL (70-99) 152 mg/dL (70-99) Medication Medications Current Medications Magnesium Hydroxide (Milk Of Magnesia) 2,400 mg PRN DAILY ONCE PO ; Start at 19:15; Stop 09/12/19 at 19:24; Status DC Metformin HCl (Glucophage) 500 mg BIDWMEALS PO Last administered on 09/13/19at 09:18; Start 09/12/19 at 17:00 Polyethylene Glycol (miraLAX PACKET) 17 gm 1X ONCE PO Last administered on 09/12/19at 20:14; Start 09/12/19 at 19:30; Stop 09/12/19 at 19:31; Status DC Polyethylene Glycol (miraLAX PACKET) 17 gm DAILY PO Last administered on 09/13/19at 09:12; Start 09/13/19 at 09:00 Psyllium Hydrophilic Mucilloid (Metamucil Fiber Packet) 1 pkt 1X PO ; Start 09/12/19 at 19:30; Status Cancel Psyllium Hydrophilic Mucilloid (Metamucil Fiber Packet) 1 pkt DAILY PO Last administered on 09/13/19at 09:12; Start 09/12/19 at 20:30 Psyllium Hydrophilic Mucilloid (Metamucil Fiber Packet) 1 pkt DAILY PO ; Start 09/13/19 at 09:00; Stop 09/12/19 at 20:22; Status DC Comment Review of Relevant I have reviewed the following items brenda (where applicable) has been applied. ELIANA MELENDREZ MD Sep 13, 2019 14:54
[2019-09-13 15:00] VITALS: BP 115/77
--- NOTE | 2019-09-13 15:19 | PDOC ---
PROGRESS NOTES History of Present Illness History of Present Illness VTE Prophylaxis Ordered VTE Prophylaxis Devices: No VTE Pharmacological Prophylaxi: Yes Assessment/Plan Assessment/Plan impression dIZZINESS/ VERTIGO high fall risk HTN Multifocal acute infarcts within the right nicole, left occipital lobe and right greater than left cerebellum. Findings may relate to embolic etiology. If concern for basilar artery compromise CT angiogram can further assess. cardiomyopathy\ htn hyperlipidemia The Ejection Fraction is 60-65%. There is normal LV segmental wall motion. Trace to mild mitral regurgitation. Mild tricuspid regurgitation. 2018 PA pressure was estimated at 68 mmHg. C/W SEVERE PULM HTN HX 2018 Hemicolectomy with Silvina's pouch and flexible sigmoidoscopy. djd knees PLAN admit tele NEUROLOGY CONSULT TELE NEUROCHECKS Q 4 HRS PT/OT may need vestibular therapy ECHO CARDIOLOGY CONSULT MRI of the brain Rehabilitation screening bubble study Dual antiplatelet therapy Skilled interventions required to achieve goals * Activity mark. training * ADL training/education * Adaptive equip. training * Functional mobility train Discharge Recommendations * Acute Rehab facility Discharge Recommendation - DME * Rolling Walker needed * in order to complete ADLs * and ambulation safely Discharge Recommendation Comments * strongly recommend acute rehab * 28 MIN PT EXAM, CHART REVIEW, > 50% of time spent with exam, chart review, pt care coordination Vitals Vitals Vital Signs Date Time Temp Pulse Resp B/P (MAP) Pulse Ox O2 Delivery O2 Flow Rate FiO2 09/13/19 11:00 98.0 48 20 147/90 (109) 97 Room Air 98.0 Physical Exam General: No acute distress Heart: Other (mild bradycardia) Lungs: Clear Abdomen: Normal bowel sounds Extremities: No cyanosis, No edema Skin: No breakdown, No significant lesion Labs LABS Laboratory Tests Test 09/12/19 16:58 09/12/19 21:09 09/13/19 08:01 09/13/19 11:21 Glucose (Fingerstick) 119 mg/dL (70-99) 98 mg/dL (70-99) 116 mg/dL (70-99) 152 mg/dL (70-99) Comment Review of Relevant I have reviewed the following items brenda (where applicable) has been applied. Labs Laboratory Tests Test 09/11/19 16:29 09/11/19 21:36 09/12/19 07:32 09/12/19 11:03 Glucose (Fingerstick) 120 mg/dL (70-99) 103 mg/dL (70-99) 123 mg/dL (70-99) 117 mg/dL (70-99) Test 09/12/19 16:58 09/12/19 21:09 09/13/19 08:01 09/13/19 11:21 Glucose (Fingerstick) 119 mg/dL (70-99) 98 mg/dL (70-99) 116 mg/dL (70-99) 152 mg/dL (70-99) Laboratory Tests Test 09/12/19 16:58 09/12/19 21:09 09/13/19 08:01 09/13/19 11:21 Glucose (Fingerstick) 119 mg/dL (70-99) 98 mg/dL (70-99) 116 mg/dL (70-99) 152 mg/dL (70-99) Medications Current Medications Ondansetron HCl (Zofran) 4 mg PRN Q4HRS PRN IV NAUSEA/VOMITING; Start 09/09/19 at 21:15; Stop 09/10/19 at 16:02; Status DC Acetaminophen (Tylenol) 650 mg PRN Q4HRS PRN PO TEMP OVER 100.4F OR MILD PAIN; Start 09/09/19 at 21:15; Stop 09/10/19 at 13:43; Status DC Clonidine HCl (Catapres) 0.1 mg PRN Q6HRS PRN PO SBP>160 OR DBP>90; Start 09/09/19 at 21:15; Stop 09/10/19 at 16:00; Status DC Docusate Sodium (Colace) 100 mg PRN BID PRN PO CONSTIPATION; Start 09/09/19 at 21:15; Stop 09/10/19 at 16:02; Status DC Enoxaparin Sodium (Lovenox 40mg Syringe) 40 mg DAILY SQ Last administered on 09/10/19at 09:56; Start 09/10/19 at 09:00; Stop 09/10/19 at 15:26; Status DC Labetalol HCl (Normodyne Iv Push) 10 mg PRN Q2HR PRN IVP HYPERTENSION; Start 09/09/19 at 21:15 Insulin Human Lispro (HumaLOG) 0-7 UNITS TIDACHC SQ Last administered on 09/13/19at 12:28; Start 09/09/19 at 21:30 Dextrose (Dextrose 50%-Water Syringe) 12.5 gm PRN Q15MIN PRN IV SEE COMMENTS; Start 09/09/19 at 21:15 Albuterol Sulfate (Ventolin Neb Soln) 2.5 mg PRN Q4HRS PRN INH WHEEZING; Start 09/09/19 at 21:15; Stop 09/10/19 at 16:01; Status DC Aspirin (Radha Aspirin) 325 mg DAILYWBKFT PO Last administered on 09/10/19 09:55; Start 09/10/19 at 08:00; Stop 09/10/19 at 13:41; Status DC Atorvastatin Calcium (Lipitor) 40 mg QHS PO Last administered on 09/12/19 20:15; Start 09/09/19 at 21:30 Clonidine HCl (Catapres) 0.2 mg BID PO Last administered on 09/13/19 09:18; Start 09/09/19 at 21:30 Acetaminophen/ Hydrocodone Bitart (Lortab 10/325) 1 tab PRN QHS PRN PO pain Last administered on 09/11/19at 15:28; Start 09/09/19 at 21:15 Metformin HCl (Glucophage) 500 mg BIDWMEALS PO Last administered on 09/10/19 09:55; Start 09/10/19 at 08:00; Stop 09/10/19 at 13:42; Status DC Metoprolol Tartrate (Lopressor) 50 mg BID PO Last administered on 09/10/19 09:55; Start 09/09/19 at 21:30; Stop 09/10/19 at 17:48; Status DC Oxybutynin Chloride (Ditropan) 5 mg TID PO Last administered on 09/13/19at 14:24; Start 09/09/19 at 21:30 Citalopram Hydrobromide (CeleXA) 20 mg DAILY PO Last administered on 09/13/19 09:17; Start 09/10/19 at 09:00 Non-Formulary Medication (Olmesartan/ Amlodipin/ Hcthiazid (Tribenzor 40-10-25 Mg Tablet)) 1 tab DAILY PO ; Start 09/10/19 at 09:00; Status UNV Losartan Potassium (Cozaar) 100 mg DAILY PO Last administered on 09/13/19 09:16; Start 09/10/19 at 09:00 Amlodipine Besylate (Norvasc) 10 mg DAILY PO Last administered on 09/13/19 09:17; Start 09/10/19 at 09:00 Hydrochlorothiazide (Hydrodiuril) 25 mg DAILY PO Last administered on 09/13/19 09:16; Start 09/10/19 at 09:00 Influenza Virus Vaccine Quadrival (Afluria Quad 2019-20 (3yr Up) Syringe) 0.5 ml ONCE ONCE VAX IM Last administered on 09/10/19at 10:06; Start 09/10/19 at 09:00; Stop 09/10/19 at 09:01; Status DC Enoxaparin Sodium (Lovenox 40mg Syringe) 40 mg Q24H SQ ; Start 09/10/19 at 13:30; Status UNV Acetaminophen (Tylenol) 650 mg PRN Q6HRS PRN PO TEMP > 100.4F; Start 09/10/19 at 13:30; Stop 09/10/19 at 16:01; Status DC Acetaminophen (Tylenol Supp) 650 mg PRN Q4HRS PRN SC TEMP > 100.4F; Start 09/10/19 at 13:30 Aspirin (Ecotrin) 325 mg DAILYWBKFT PO Last administered on 09/13/19 09:17; Start 09/11/19 at 08:00 Aspirin (Aspirin Rectal Supp) 300 mg PRN DAILY PRN SC IF UNABLE TO TAKE PO; Start 09/10/19 at 13:30 Iohexol (Omnipaque 350 Mg/ml) 75 ml 1X ONCE IV Last administered on 09/10/19at 15:22; Start 09/10/19 at 13:45; Stop 09/10/19 at 13:46; Status DC Metformin HCl (Glucophage) 500 mg BIDWMEALS PO Last administered on 09/13/19 09:18; Start 09/12/19 at 17:00 Info (CONTRAST GIVEN -- Rx MONITORING) 1 each PRN DAILY PRN MC SEE COMMENTS; Start 09/10/19 at 13:45; Stop 09/12/19 at 13:44; Status DC Enoxaparin Sodium (Lovenox 40mg Syringe) 40 mg BID SQ Last administered on 09/13/19at 09:18; Start 09/10/19 at 21:00 Sodium Chloride (Normal Saline Flush) 3 ml QSHIFT PRN IV AFTER MEDS AND BLOOD DRAWS; Start 09/10/19 at 15:45 Sodium Chloride 1,000 ml @ 70 mls/hr [id number] IV Last administered on 09/13/19at 14:24; Start 09/10/19 at 15:31 Ondansetron HCl (Zofran) 4 mg PRN Q4HRS PRN IV NAUSEA/VOMITING Last administered on 09/13/19at 14:41; Start 09/10/19 at 15:45 Zolpidem Tartrate (Ambien) 5 mg PRN QHS PRN PO INSOMNIA; Start 09/10/19 at 15:45 Acetaminophen (Tylenol) 650 mg PRN Q4HRS PRN PO TEMP OVER 100.4F OR MILD PAIN Last administered on 09/12/19at 13:19; Start 09/10/19 at 15:45 Acetaminophen (Tylenol) 650 mg PRN Q4HRS PRN GT TEMP OVER 100.4F OR MILD PAIN; Start 09/10/19 at 15:45 Al Hydroxide/Mg Hydroxide (Mylanta Plus Xs) 30 ml PRN DAILY PRN PO HEARTBURN / GAS; Start 09/10/19 at 15:45 Clonidine HCl (Catapres) 0.1 mg PRN Q6HRS PRN PO SBP>160 OR DBP>90; Start 09/10/19 at 15:45 Docusate Sodium (Colace) 100 mg PRN BID PRN PO CONSTIPATION Last administered on 09/11/19at 20:11; Start 09/10/19 at 15:45 Albuterol Sulfate (Ventolin Neb Soln) 2.5 mg PRN Q4HRS PRN NEB SHORTNESS OF BREATH; Start 09/10/19 at 15:45 Guaifenesin (Robitussin) 200 mg PRN Q4HRS PRN PO COUGH; Start 09/10/19 at 15:45 Lorazepam (Ativan) 0.5 mg PRN Q4HRS PRN PO ANXIETY / AGITATION; Start 09/10/19 at 15:45 Enoxaparin Sodium (Lovenox 40mg Syringe) 40 mg DAILY SQ ; Start 09/11/19 at 09:00; Stop 09/10/19 at 16:01; Status DC Hydralazine HCl (Apresoline Inj) 10 mg PRN Q4HRS PRN IVP ELEVATED BP, SEE COMMENTS; Start 09/10/19 at 18:00 Clopidogrel Bisulfate (Plavix) 75 mg DAILYWBKFT PO Last administered on 09/13/19at 09:17; Start 09/11/19 at 15:00 Carbamide Peroxide (Debrox) 5 drop 1X ONCE AD Last administered on 09/12/19at 13:00; Start 09/12/19 at 13:00; Stop 09/12/19 at 13:02; Status DC Polyethylene Glycol (miraLAX PACKET) 17 gm DAILY PO Last administered on 09/13/19at 09:12; Start 09/13/19 at 09:00 Polyethylene Glycol (miraLAX PACKET) 17 gm 1X ONCE PO Last administered on 09/12/19at 20:14; Start 09/12/19 at 19:30; Stop 09/12/19 at 19:31; Status DC Magnesium Hydroxide (Milk Of Magnesia) 2,400 mg PRN DAILY ONCE PO ; Start 09/12/19 at 19:15; Stop 09/12/19 at 19:24; Status DC Psyllium Hydrophilic Mucilloid (Metamucil Fiber Packet) 1 pkt DAILY PO ; Start 09/13/19 at 09:00; Stop 09/12/19 at 20:22; Status DC Psyllium Hydrophilic Mucilloid (Metamucil Fiber Packet) 1 pkt 1X PO ; Start 09/12/19 at 19:30; Status Cancel Psyllium Hydrophilic Mucilloid (Metamucil Fiber Packet) 1 pkt DAILY PO Last administered on 09/13/19at 09:12; Start 09/12/19 at 20:30 Active Scripts Active Proair Hfa Inhaler (Albuterol Sulfate) 8.5 Gm Hfa.aer.ad 2 Puff INH Q4-6HRS PRN Reported [place] 10-325 Tablet (Acetaminophen/Hydrocodone Bitart) 1 Each Tablet 1 Tab PO QHS Metoprolol Tartrate 50 Mg Tablet 1 Tab PO BID Oxybutynin Chloride 5 Mg Tablet 5 Mg PO TID Clonidine Hcl 0.1 Mg Tablet 0.2 Mg PO BID Escitalopram Oxalate 10 Mg Tablet 1 Tab PO DAILY Tribenzor 40-10-25 Mg Tablet (Olmesartan/Amlodipin/Hcthiazid) 1 Each Tablet 1 Tab PO DAILY Centrum Silver Tablet (Multivits-Min/Fa/Lycopene/Lut) 1 Each Tablet 1 Each PO Aspirin 325 Mg Tablet 1 Tab PO DAILY Atorvastatin Calcium 40 Mg Tablet 1 Tab PO DAILY Metformin Hcl 500 Mg Tablet 1 Tab PO BID Vitals/I & O Vital Sign - Last 24 Hours 09/12/19 09/12/19 09/12/19 09/12/19 15:27 19:24 20:00 20:16 Temp 98.1 98.4 98.1 98.4 Pulse 45 48 48 Resp 20 20 B/P (MAP) 137/83 (101) 157/76 (103) 157/76 Pulse Ox 98 97 O2 Delivery Room Air Room Air Room Air 09/12/19 09/13/19 09/13/19 09/13/19 23:34 03:43 07:00 08:30 Temp 98.2 97.5 97.7 98.2 97.5 97.7 Pulse 48 47 45 Resp 18 20 20 B/P (MAP) 153/76 (101) 167/77 (107) 147/77 (100) Pulse Ox 96 98 98 O2 Delivery Room Air Room Air Room Air Room Air 09/13/19 09/13/19 09/13/19 09/13/19 09:16 09:17 09:18 11:00 Temp 98.0 98.0 Pulse 45 45 45 48 Resp 20 B/P (MAP) 147/77 147/77 147/77 147/90 (109) Pulse Ox 97 O2 Delivery Room Air Intake and Output 09/12/19 09/12/19 09/13/19 15:00 23:00 07:00 Intake Total 1200 ml 200 ml Output Total 900 ml Balance 1200 ml 200 ml -900 ml LESLY PATE MD Sep 13, 2019 15:19
[2019-09-13 19:20] VITALS: BP 131/69
[2019-09-13] MEDS: ATORVASTATIN CALCIUM 40 MG TABLET. PO SCH (20:19)
[2019-09-13 23:25] VITALS: BP 136/69
[2019-09-14 03:25] VITALS: BP 152/73
[2019-09-14] MEDS: IV NORMAL SALINE 1000ML BAG 1,000 ML IV SCH ×2 (04:17→19:07)
[2019-09-14 07:30] VITALS: BP 128/56
[2019-09-14] MEDS: INSULIN LISPRO 300 UNITS/3 ML VIAL. SQ SCH ×4 (07:30→21:00)
[2019-09-14] MEDS: cloNIDine HCL 0.1 MG TABLET PO SCH (09:05)
[2019-09-14] MEDS: CITALOPRAM 20 MG TABLET. PO SCH (09:06)
[2019-09-14] MEDS: LOSARTAN POTASSIUM 50 MG TABLET. PO SCH (09:06)
[2019-09-14] MEDS: CLOPIDOGREL BISULFATE 75 MG TABLET PO SCH (09:06)
[2019-09-14] MEDS: metFORMIN 500 MG TABLET PO SCH ×2 (09:06→17:00)
[2019-09-14] MEDS: OXYBUTYNIN CHLORIDE 5 MG TABLET PO SCH ×3 (09:06→22:14)
[2019-09-14] MEDS: amLODIPine BESYLATE 10 MG TABLET PO SCH (09:06)
[2019-09-14] MEDS: hydroCHLOROthiazide 25 MG TABLET PO SCH (09:06)
[2019-09-14] MEDS: ASPIRIN ENTERIC COATED 325 MG TABLET.DR. PO SCH (09:06)
[2019-09-14] MEDS: ENOXAPARIN 40 MG/0.4 ML SYRINGE. SQ SCH ×2 (09:07→22:15)
[2019-09-14] MEDS: POLYETHYLENE GLYCOL 3350 17 GM PACKET. PO SCH (09:07)
[2019-09-14] MEDS: PSYLLIUM HUSK (SUGAR FREE) 1 PKT PACKET PO SCH (09:07)
--- NOTE | 2019-09-14 09:15 | PDOC ---
PROGRESS NOTES History of Present Illness History of Present Illness VTE Prophylaxis Ordered VTE Prophylaxis Devices: No VTE Pharmacological Prophylaxi: Yes Assessment/Plan Assessment/Plan impression dIZZINESS/ VERTIGO high fall risk HTN Multifocal acute infarcts within the right nicole, left occipital lobe and right greater than left cerebellum. Findings may relate to embolic etiology. If concern for basilar artery compromise CT angiogram can further assess. cardiomyopathy\ htn hyperlipidemia The Ejection Fraction is 60-65%. There is normal LV segmental wall motion. Trace to mild mitral regurgitation. Mild tricuspid regurgitation. 2018 PA pressure was estimated at 68 mmHg. C/W SEVERE PULM HTN HX 2018 Hemicolectomy with Silvina's pouch and flexible sigmoidoscopy. djd knees PLAN admit tele NEUROLOGY CONSULT TELE NEUROCHECKS Q 4 HRS PT/OT may need vestibular therapy ECHO CARDIOLOGY CONSULT MRI of the brain Rehabilitation screening bubble study Dual antiplatelet therapy Skilled interventions required to achieve goals * Activity mark. training * ADL training/education * Adaptive equip. training * Functional mobility train Discharge Recommendations * Acute Rehab facility Discharge Recommendation - DME * Rolling Walker needed * in order to complete ADLs * and ambulation safely Discharge Recommendation Comments * strongly recommend acute rehab * 26 MIN PT EXAM, CHART REVIEW, > 50% of time spent with exam, chart review, pt care coordination Vitals Vitals Vital Signs Date Time Temp Pulse Resp B/P (MAP) Pulse Ox O2 Delivery O2 Flow Rate FiO2 09/14/19 09:06 43 128/56 09/14/19 07:30 97.8 16 98 Room Air 97.8 Physical Exam General: No acute distress Heart: Other (mild bradycardia) Lungs: Clear Abdomen: Normal bowel sounds Extremities: No cyanosis, No edema Skin: No breakdown, No significant lesion Labs LABS Laboratory Tests Test 09/13/19 11:21 09/13/19 16:40 09/13/19 21:29 09/14/19 08:09 Glucose (Fingerstick) 152 mg/dL (70-99) 98 mg/dL (70-99) 106 mg/dL (70-99) 91 mg/dL (70-99) Comment Review of Relevant I have reviewed the following items brenda (where applicable) has been applied. Labs Laboratory Tests Test 09/12/19 11:03 09/12/19 16:58 09/12/19 21:09 09/13/19 08:01 Glucose (Fingerstick) 117 mg/dL (70-99) 119 mg/dL (70-99) 98 mg/dL (70-99) 116 mg/dL (70-99) Test 09/13/19 11:21 09/13/19 16:40 09/13/19 21:29 09/14/19 08:09 Glucose (Fingerstick) 152 mg/dL (70-99) 98 mg/dL (70-99) 106 mg/dL (70-99) 91 mg/dL (70-99) Laboratory Tests Test 09/13/19 11:21 09/13/19 16:40 09/13/19 21:29 09/14/19 08:09 Glucose (Fingerstick) 152 mg/dL (70-99) 98 mg/dL (70-99) 106 mg/dL (70-99) 91 mg/dL (70-99) Medications Current Medications Ondansetron HCl (Zofran) 4 mg PRN Q4HRS PRN IV NAUSEA/VOMITING; Start 09/09/19 at 21:15; Stop 09/10/19 at 16:02; Status DC Acetaminophen (Tylenol) 650 mg PRN Q4HRS PRN PO TEMP OVER 100.4F OR MILD PAIN; Start 09/09/19 at 21:15; Stop 09/10/19 at 13:43; Status DC Clonidine HCl (Catapres) 0.1 mg PRN Q6HRS PRN PO SBP>160 OR DBP>90; Start 09/09/19 at 21:15; Stop 09/10/19 at 16:00; Status DC Docusate Sodium (Colace) 100 mg PRN BID PRN PO CONSTIPATION; Start 09/09/19 at 21:15; Stop 09/10/19 at 16:02; Status DC Enoxaparin Sodium (Lovenox 40mg Syringe) 40 mg DAILY SQ Last administered on 09/10/19at 09:56; Start 09/10/19 at 09:00; Stop 09/10/19 at 15:26; Status DC Labetalol HCl (Normodyne Iv Push) 10 mg PRN Q2HR PRN IVP HYPERTENSION; Start 09/09/19 at 21:15 Insulin Human Lispro (HumaLOG) 0-7 UNITS TIDACHC SQ Last administered on 09/13/19at 12:28; Start 09/09/19 at 21:30 Dextrose (Dextrose 50%-Water Syringe) 12.5 gm PRN Q15MIN PRN IV SEE COMMENTS; Start 09/09/19 at 21:15 Albuterol Sulfate (Ventolin Neb Soln) 2.5 mg PRN Q4HRS PRN INH WHEEZING; Start 09/09/19 at 21:15; Stop 09/10/19 at 16:01; Status DC Aspirin (Radha Aspirin) 325 mg DAILYWBKFT PO Last administered on 09/10/19at 09:55; Start 09/10/19 at 08:00; Stop 09/10/19 at 13:41; Status DC Atorvastatin Calcium (Lipitor) 40 mg QHS PO Last administered on 09/13/19at 20:19; Start 09/09/19 at 21:30 Clonidine HCl (Catapres) 0.2 mg BID PO Last administered on 09/14/19at 09:05; Start 09/09/19 at 21:30 Acetaminophen/ Hydrocodone Bitart (Lortab 10/325) 1 tab PRN QHS PRN PO pain Last administered on 09/11/19at 15:28; Start 09/09/19 at 21:15 Metformin HCl (Glucophage) 500 mg BIDWMEALS PO Last administered on 09/10/19at 09:55; Start 09/10/19 at 08:00; Stop 09/10/19 at 13:42; Status DC Metoprolol Tartrate (Lopressor) 50 mg BID PO Last administered on 09/10/19at 09:55; Start 09/09/19 at 21:30; Stop 09/10/19 at 17:48; Status DC Oxybutynin Chloride (Ditropan) 5 mg TID PO Last administered on 09/14/19at 09:06; Start 09/09/19 at 21:30 Citalopram Hydrobromide (CeleXA) 20 mg DAILY PO Last administered on 09/14/19at 09:06; Start 09/10/19 at 09:00 Non-Formulary Medication (Olmesartan/ Amlodipin/ Hcthiazid (Tribenzor 40-10-25 Mg Tablet)) 1 tab DAILY PO ; Start 09/10/19 at 09:00; Status UNV Losartan Potassium (Cozaar) 100 mg DAILY PO Last administered on 09/14/19 09:06; Start 09/10/19 at 09:00 Amlodipine Besylate (Norvasc) 10 mg DAILY PO Last administered on 09/14/19 09:06; Start 09/10/19 at 09:00 Hydrochlorothiazide (Hydrodiuril) 25 mg DAILY PO Last administered on 09/14/19 09:06; Start 09/10/19 at 09:00 Influenza Virus Vaccine Quadrival (Afluria Quad 2019-20 (3yr Up) Syringe) 0.5 ml ONCE ONCE VAX IM Last administered on 09/10/19 10:06; Start 09/10/19 at 09:00; Stop 09/10/19 at 09:01; Status DC Enoxaparin Sodium (Lovenox 40mg Syringe) 40 mg Q24H SQ ; Start 09/10/19 at 13:30; Status UNV Acetaminophen (Tylenol) 650 mg PRN Q6HRS PRN PO TEMP > 100.4F; Start 09/10/19 at 13:30; Stop 09/10/19 at 16:01; Status DC Acetaminophen (Tylenol Supp) 650 mg PRN Q4HRS PRN NM TEMP > 100.4F; Start 09/10/19 at 13:30 Aspirin (Ecotrin) 325 mg DAILYWBKFT PO Last administered on 09/14/19 09:06; Start 09/11/19 at 08:00 Aspirin (Aspirin Rectal Supp) 300 mg PRN DAILY PRN NM IF UNABLE TO TAKE PO; Start 09/10/19 at 13:30 Iohexol (Omnipaque 350 Mg/ml) 75 ml 1X ONCE IV Last administered on 09/10/19at 15:22; Start 09/10/19 at 13:45; Stop 09/10/19 at 13:46; Status DC Metformin HCl (Glucophage) 500 mg BIDWMEALS PO Last administered on 09/14/19 09:06; Start 09/12/19 at 17:00 Info (CONTRAST GIVEN -- Rx MONITORING) 1 each PRN DAILY PRN MC SEE COMMENTS; Start 09/10/19 at 13:45; Stop 09/12/19 at 13:44; Status DC Enoxaparin Sodium (Lovenox 40mg Syringe) 40 mg BID SQ Last administered on 09/14/19at 09:07; Start 09/10/19 at 21:00 Sodium Chloride (Normal Saline Flush) 3 ml QSHIFT PRN IV AFTER MEDS AND BLOOD DRAWS; Start 09/10/19 at 15:45 Sodium Chloride 1,000 ml @ 70 mls/hr [id number] IV Last administered on 09/14/19at 04:17; Start 09/10/19 at 15:31 Ondansetron HCl (Zofran) 4 mg PRN Q4HRS PRN IV NAUSEA/VOMITING Last administered on 09/13/19at 14:41; Start 09/10/19 at 15:45 Zolpidem Tartrate (Ambien) 5 mg PRN QHS PRN PO INSOMNIA; Start 09/10/19 at 15:45 Acetaminophen (Tylenol) 650 mg PRN Q4HRS PRN PO TEMP OVER 100.4F OR MILD PAIN Last administered on 09/12/19at 13:19; Start 09/10/19 at 15:45 Acetaminophen (Tylenol) 650 mg PRN Q4HRS PRN GT TEMP OVER 100.4F OR MILD PAIN; Start 09/10/19 at 15:45 Al Hydroxide/Mg Hydroxide (Mylanta Plus Xs) 30 ml PRN DAILY PRN PO HEARTBURN / GAS; Start 09/10/19 at 15:45 Clonidine HCl (Catapres) 0.1 mg PRN Q6HRS PRN PO SBP>160 OR DBP>90; Start 09/10/19 at 15:45 Docusate Sodium (Colace) 100 mg PRN BID PRN PO CONSTIPATION Last administered on 09/11/19at 20:11; Start 09/10/19 at 15:45 Albuterol Sulfate (Ventolin Neb Soln) 2.5 mg PRN Q4HRS PRN NEB SHORTNESS OF BREATH; Start 09/10/19 at 15:45 Guaifenesin (Robitussin) 200 mg PRN Q4HRS PRN PO COUGH; Start 09/10/19 at 15:45 Lorazepam (Ativan) 0.5 mg PRN Q4HRS PRN PO ANXIETY / AGITATION; Start 09/10/19 at 15:45 Enoxaparin Sodium (Lovenox 40mg Syringe) 40 mg DAILY SQ ; Start 09/11/19 at 09:00; Stop 09/10/19 at 16:01; Status DC Hydralazine HCl (Apresoline Inj) 10 mg PRN Q4HRS PRN IVP ELEVATED BP, SEE COMMENTS; Start 09/10/19 at 18:00 Clopidogrel Bisulfate (Plavix) 75 mg DAILYWBKFT PO Last administered on 09/14/19at 09:06; Start 09/11/19 at 15:00 Carbamide Peroxide (Debrox) 5 drop 1X ONCE AD Last administered on 09/12/19at 13:00; Start 09/12/19 at 13:00; Stop 09/12/19 at 13:02; Status DC Polyethylene Glycol (miraLAX PACKET) 17 gm DAILY PO Last administered on 09/14/19at 09:07; Start 09/13/19 at 09:00 Polyethylene Glycol (miraLAX PACKET) 17 gm 1X ONCE PO Last administered on 09/12/19at 20:14; Start 09/12/19 at 19:30; Stop 09/12/19 at 19:31; Status DC Magnesium Hydroxide (Milk Of Magnesia) 2,400 mg PRN DAILY ONCE PO ; Start 09/12/19 at 19:15; Stop 09/12/19 at 19:24; Status DC Psyllium Hydrophilic Mucilloid (Metamucil Fiber Packet) 1 pkt DAILY PO ; Start 09/13/19 at 09:00; Stop 09/12/19 at 20:22; Status DC Psyllium Hydrophilic Mucilloid (Metamucil Fiber Packet) 1 pkt 1X PO ; Start 09/12/19 at 19:30; Status Cancel Psyllium Hydrophilic Mucilloid (Metamucil Fiber Packet) 1 pkt DAILY PO Last administered on 09/14/19at 09:07; Start 09/12/19 at 20:30 Active Scripts Active Proair Hfa Inhaler (Albuterol Sulfate) 8.5 Gm Hfa.aer.ad 2 Puff INH Q4-6HRS PRN Reported [place] 10-325 Tablet (Acetaminophen/Hydrocodone Bitart) 1 Each Tablet 1 Tab PO QHS Metoprolol Tartrate 50 Mg Tablet 1 Tab PO BID Oxybutynin Chloride 5 Mg Tablet 5 Mg PO TID Clonidine Hcl 0.1 Mg Tablet 0.2 Mg PO BID Escitalopram Oxalate 10 Mg Tablet 1 Tab PO DAILY Tribenzor 40-10-25 Mg Tablet (Olmesartan/Amlodipin/Hcthiazid) 1 Each Tablet 1 Tab PO DAILY Centrum Silver Tablet (Multivits-Min/Fa/Lycopene/Lut) 1 Each Tablet 1 Each PO Aspirin 325 Mg Tablet 1 Tab PO DAILY Atorvastatin Calcium 40 Mg Tablet 1 Tab PO DAILY Metformin Hcl 500 Mg Tablet 1 Tab PO BID Vitals/I & O Vital Sign - Last 24 Hours 09/13/19 09/13/19 09/13/19 09/13/19 09:16 09:17 09:18 11:00 Temp 98.0 98.0 Pulse 45 45 45 48 Resp 20 B/P (MAP) 147/77 147/77 147/77 147/90 (109) Pulse Ox 97 O2 Delivery Room Air 09/13/19 09/13/19 09/13/19 09/13/19 15:00 19:20 20:00 20:19 Temp 98.0 98.1 98.0 98.1 Pulse 64 51 51 Resp 20 18 B/P (MAP) 115/77 (90) 131/69 (89) 131/69 Pulse Ox 96 96 O2 Delivery Room Air Room Air Room Air 09/13/19 09/14/19 09/14/19 09/14/19 23:25 03:25 07:30 09:05 Temp 97.4 97.6 97.8 97.4 97.6 97.8 Pulse 45 43 43 43 Resp 18 18 16 B/P (MAP) 136/69 (91) 152/73 (99) 128/56 (80) 128/56 Pulse Ox 97 98 98 O2 Delivery Room Air Room Air Room Air 09/14/19 09/14/19 09:06 09:06 Pulse 43 43 B/P (MAP) 128/56 128/56 Intake and Output 09/13/19 09/13/19 09/14/19 15:00 23:00 07:00 Intake Total 600 ml Balance 600 ml LESLY PATE MD Sep 14, 2019 09:15
[2019-09-14 11:02] VITALS: BP 140/67
--- NOTE | 2019-09-14 14:04 | PDOC ---
PROGRESS NOTES Assessment Assessment Multiple acute infarcts in the right nicole, left occpital lobe, and bilateral cerebellum right > left. Basilar A stenosis. 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 Dizziness. HTN. CHF. Hearing loss. Former smoker x 30 years. Morbid obesity. Other medical diseases. RECOMMENDATIONS/PLAN: Continue Plavix 75 mg daily. Continue ASA daily. Continue Lipitor HS. Treat medical diseases. Weight reduction. Rehab as needed. PT/OT. SUBJECTIVE: No new complaints. OBJECTIVE: Refer to CTA and MRI reports. Past Medical History Cardiovascular: CHF (cardiomyopathy), HTN Pulmonary: Other (sleep apnea) Heme/Onc: Cancer (colon) Psych: Anxiety, Depression Musculoskeletal: Osteoarthritis (knees) Past Surgical History Cataract Removal, , Hernia Repair (abdominal times 3), Hysterectomy, Colon Resection (colostomy) Family History CAD Social History , retired, no alcohol or tobacco Allergies No Known Drug Allergies (Unverified , 08/06/19) ROS Negative for fever, chills, weight loss, shortness of breath, chest pain, i ndigestion, hematochezia, melena, and dysuria. Full 14-point review of systems is negative. MEDICATIONS: Refer to MAR PHYSICAL EXAMINATION: General appearance in no acute distress. HEENT: Normocephalic and nontraumatic. Eyes, nose, ears, and throat are unremarkable. Neck is supple. No lymphadenopathy. No Crepitus. Cardiovascular: S1, S2, regular rate and rhythm. Pulmonary: Clear to auscultation bilaterally. Abdomen: Bowel sounds are positive. Extremities: No rash, lesions, or edema. No restriction of range of motion NEUROLOGICAL EXAMINATION: Awake. Partially oriented to time, place and person. PERRL. EOMI. CN: no focal findings. Muscle tone: within normal. Muscle strength: 4+ DTR: 1- due to obesity. Plantar reflex: Neutral response bilaterally Gait: not examined in chair. Sensory exam: no acute abnormal findings. F-T-N test fine. Objective Objective Vital Signs Date Time Temp Pulse Resp B/P (MAP) Pulse Ox O2 Delivery O2 Flow Rate FiO2 09/14/19 11:02 97.3 44 16 140/67 (91) 10 Room Air 97.3 Intake and Output 09/14/19 07:00 Intake Total 600 ml Balance 600 ml Intake Oral 600 ml # Voids 7 # Bowel Movements 1 Vitals Signs Vitals VS - Last 72 Hours, by Label Date Time Temp Pulse Resp B/P (MAP) Pulse Ox O2 Delivery O2 Flow Rate FiO2 09/14/19 11:02 97.3 44 16 140/67 (91) 10 Room Air 97.3 09/14/19 09:06 43 128/56 09/14/19 09:06 43 128/56 09/14/19 09:05 43 128/56 09/14/19 08:20 Room Air 09/14/19 07:30 97.8 43 16 128/56 (80) 98 Room Air 97.8 09/14/19 03:25 97.6 43 18 152/73 (99) 98 Room Air 97.6 09/13/19 23:25 97.4 45 18 136/69 (91) 97 Room Air 97.4 09/13/19 20:19 51 131/69 09/13/19 20:00 Room Air 09/13/19 19:20 98.1 51 18 131/69 (89) 96 Room Air 98.1 09/13/19 15:00 98.0 64 20 115/77 (90) 96 Room Air 98.0 09/13/19 11:00 98.0 48 20 147/90 (109) 97 Room Air 98.0 09/13/19 09:18 45 147/77 09/13/19 09:17 45 147/77 09/13/19 09:16 45 147/77 09/13/19 08:30 Room Air 09/13/19 07:00 97.7 45 20 147/77 (100) 98 Room Air 97.7 Laboratory Laboratory Laboratory Tests Test 09/13/19 16:40 09/13/19 21:29 09/14/19 08:09 09/14/19 11:49 Glucose (Fingerstick) 98 mg/dL (70-99) 106 mg/dL (70-99) 91 mg/dL (70-99) 130 mg/dL (70-99) Comment Review of Relevant I have reviewed the following items brenda (where applicable) has been applied. ELIANA MELENDREZ MD Sep 14, 2019 14:04
[2019-09-14 15:29] VITALS: BP 122/68
[2019-09-14] MEDS: ACETAMINOPHEN 325 MG TABLET. PO PRN (17:00)
[2019-09-14 19:25] VITALS: BP 134/69
[2019-09-14] MEDS: ATORVASTATIN CALCIUM 40 MG TABLET. PO SCH (22:14)
[2019-09-14 23:25] VITALS: BP 172/81
[2019-09-15 03:25] VITALS: BP 172/81
[2019-09-15 07:00] VITALS: BP 155/65
[2019-09-15] MEDS: INSULIN LISPRO 300 UNITS/3 ML VIAL. SQ SCH ×4 (07:30→21:00)
[2019-09-15] MEDS: PSYLLIUM HUSK (SUGAR FREE) 1 PKT PACKET PO SCH (09:00)
[2019-09-15] MEDS: POLYETHYLENE GLYCOL 3350 17 GM PACKET. PO SCH (09:00)
[2019-09-15] MEDS ORDERED: cloNIDine HCL 0.1 MG TABLET PO SCH (09:00)
[2019-09-15] MEDS ORDERED: CLOP75TA PO (10:38)
--- NOTE | 2019-09-15 10:39 | SNU/HH DC ---
DISCHARGE ORDERS DISCHARGE INFORMATION: DISCHARGE DATE: Sep 15, 2019 CONDITION ON DISCHARGE: Stable CODE STATUS: Code Status: Full PENITENTIARY: SNF STAY <30 DAYS: Yes HOSPICE: HOSPICE: No HOSPICE EVAL & TREAT: No LTAC: ADMIT TO LTAC: No POST DISCHARGE ORDERS: ACTIVITY ORDERS: No restrictions, Activity as tolerated WEIGHT BEARING STATUS: As tolerated BATHING ORDERS: No Tub Bath until see Dr. MESSINA AFTER DISCHARGE: Cardiac CHECKS AFTER DISCHARGE: CHECKS AFTER DISCHARGE: Check blood press - daily, Check blood sugar, ac/hs FOLLOW-UP: PHYSICIAN FOLLOW-UP: she has multiple strokes, ischemic - ASA 325and plavix pls TREATMENT/EQUIPMENT ORDERS: ADAPTIVE EQUIPMENT NEEDED: None Physical Therapy For: Evalulation/Treatment Occupational Therapy For: Evaluation/Treatment DISCHARGE MEDICATIONS: Home Meds Active Scripts Clopidogrel Bisulfate (CLOPIDOGREL) 75 Mg Tablet, 75 MG PO DAILYWBKFT for cva, #60 TAB Prov:MAGDA SOLER MD 09/15/19 Albuterol Sulfate (PROAIR HFA INHALER) 8.5 Gm Hfa.aer.ad, 2 PUFF INH Q4-6HRS PRN for WHEEZING, #1 INHALER 0 Refills Prov:CORRY MEJÍA MD 12/12/16 Reported Medications Hydrocodone/Apap 10-325 ([place] 10-325 TABLET) 1 Each Tablet, 1 TAB PO QHS, #60 TAB 05/14/18 Metoprolol Tartrate (METOPROLOL TARTRATE) 50 Mg Tablet, 1 TAB PO BID, #60 TAB 5 Refills 05/14/18 Oxybutynin Chloride (OXYBUTYNIN CHLORIDE) 5 Mg Tablet, 5 MG PO TID, TAB 11/20/17 Clonidine Hcl (CLONIDINE HCL) 0.1 Mg Tablet, 0.2 MG PO BID, TAB 11/20/17 Escitalopram Oxalate (ESCITALOPRAM OXALATE) 10 Mg Tablet, 1 TAB PO DAILY, #30 TAB 3 Refills 11/20/17 Olmesartan/Amlodipin/Hcthiazid (TRIBENZOR 40-10-25 MG TABLET) 1 Each Tablet, 1 TAB PO DAILY, #30 TAB 5 Refills 11/14/14 Multivits-Min/Fa/Lycopene/Lut (CENTRUM SILVER TABLET) 1 Each Tablet, 1 EACH PO 06/16/14 Aspirin (ASPIRIN) 325 Mg Tablet, 1 TAB PO DAILY, #30 TAB 5 Refills 06/16/14 Atorvastatin Calcium (ATORVASTATIN CALCIUM) 40 Mg Tablet, 1 TAB PO DAILY, #30 TAB 5 Refills 06/16/14 Metformin Hcl (METFORMIN HCL) 500 Mg Tablet, 1 TAB PO BID, #60 TAB 3 Refills 06/16/14 MAGDA SOLER MD Sep 15, 2019 10:39
--- NOTE | 2019-09-15 10:42 | PDOC ---
BONITA LUX TOOLMAKER 09/15/19 1042: CARDIO Progress Notes Date and Time Date of Service 09/15/2019 Time of Evaluation 1020 Subjective Subjective: No Chest Pain, No shortness of breath, No Palpitations, Other (tolerating rehab, still has intermittent dizziness and vertigo) Vitals Vitals Vital Signs Date Time Temp Pulse Resp B/P (MAP) Pulse Ox O2 Delivery O2 Flow Rate FiO2 09/15/19 07:00 98.5 48 18 155/65 (95) 100 Room Air 98.5 Weight Weight [ ] Input and Output Intake and Output Intake and Output 09/15/19 07:00 Intake Total 1400 ml Balance 1400 ml Intake Oral 1400 ml # Voids 8 # Bowel Movements 1 Laboratory Labs Laboratory Tests Test 09/14/19 11:49 09/14/19 17:23 09/14/19 21:42 09/15/19 08:13 Glucose (Fingerstick) 130 mg/dL (70-99) 94 mg/dL (70-99) 124 mg/dL (70-99) 98 mg/dL (70-99) Physical Exam HEENT: Neck Supple W Full Motion Chest: Symmetric LUNGS: Clear to Auscultation Heart: RRR (SR with no significant ectopies), no rubs Abdomen: Soft N/T Extremities: No Calf Tenderness Neurology: alert, oriented, follow commands Assessment Assessment 1. Acute brainstem/left occipital/cerebellar stroke notable for basilar stenosis and past hx of stroke: culprit for his dizziness and vertigo 2. Secondary severe pulmonary HTN with COPD and ZAHIDA 3. Chronic diastolic CHF: compensated. EF and WM nml 4. HTN 5. DM2/HLP 6. Morbid obesity 7. CKD3 8. Asymptomatic SB; doubt this contributed to her dizziness. Vagal episodes with associated use of combination of clonidine and BB Recommendations 1. Episodes of SB yesterday lowest in the upper 30s, no pauses. Overnight no further bradycardia since clonidine was decrease. Off BB 2. If bradycardia continues then will need to completely discontinue clonidine and add routine hydralazine. Monitor BP and HR. Hydralazine IV PRN 3. Follow neurology input 4. Secondary prevention measures. ASA/plavix per neurology. Continue with cur rent BP regimen 5. Supportive care, follow up as oupt. MCOT 6. Discussed with RN to use tele monitor for HR instead of BP machine. JUNE CEVALLOS MD 09/15/19 2141: CARDIO Progress Notes Plan Plan Patient seen and examined. Agree with above nurse practitioner note. Supportive care. Follow-up on an outpatient basis with a event monitor. BONITA LUX APRN Sep 15, 2019 10:42 JUNE CEVALLOS MD Sep 15, 2019 21:41
[2019-09-15] MEDS ORDERED: hydrALAZINE 20 MG/ML VIAL. IVP PRN (10:45)
[2019-09-15 11:00] VITALS: BP 149/70
[2019-09-15] MEDS: ASPIRIN ENTERIC COATED 325 MG TABLET.DR. PO SCH (11:32)
[2019-09-15] MEDS: CITALOPRAM 20 MG TABLET. PO SCH (11:32)
[2019-09-15] MEDS: CLOPIDOGREL BISULFATE 75 MG TABLET PO SCH (11:33)
[2019-09-15] MEDS: OXYBUTYNIN CHLORIDE 5 MG TABLET PO SCH ×3 (11:33→21:32)
[2019-09-15] MEDS: hydroCHLOROthiazide 25 MG TABLET PO SCH (11:33)
[2019-09-15] MEDS: metFORMIN 500 MG TABLET PO SCH ×2 (11:34→17:23)
[2019-09-15] MEDS: amLODIPine BESYLATE 10 MG TABLET PO SCH (11:37)
[2019-09-15] MEDS: LOSARTAN POTASSIUM 50 MG TABLET. PO SCH (11:38)
[2019-09-15] MEDS: IV NORMAL SALINE 1000ML BAG 1,000 ML IV SCH (11:39)
--- NOTE | 2019-09-15 13:15 | PDOC3 ---
Discharge Summary Visit Information Date of Admission: Sep 10, 2019 Date of Discharge: Sep 15, 2019 Admitting Diagnosis Comment: Multiple acute infarcts in the right nicole, left occpital lobe, and bilateral cerebellum right > left. Basilar A stenosis. 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 Dizziness. HTN. CHF. Hearing loss. Former smoker x 30 years. Morbid obesity. Other medical diseases. Brief Hospital Course Allergies Allergies Coded Allergies Type Severity Reaction Last Updated Verified No Known Drug Allergies 08/06/19 No Vital Signs Vital Signs Date Time Temp Pulse Resp B/P (MAP) Pulse Ox O2 Delivery O2 Flow Rate FiO2 09/15/19 11:39 52 149/70 09/15/19 11:00 97.8 20 98 Room Air 97.8 Lab Results Laboratory Tests Test 09/13/19 16:40 09/13/19 21:29 09/14/19 08:09 09/14/19 11:49 Glucose (Fingerstick) 98 mg/dL (70-99) 106 mg/dL (70-99) 91 mg/dL (70-99) 130 mg/dL (70-99) Test 09/14/19 17:23 09/14/19 21:42 09/15/19 08:13 09/15/19 11:15 Glucose (Fingerstick) 94 mg/dL (70-99) 124 mg/dL (70-99) 98 mg/dL (70-99) 135 mg/dL (70-99) Laboratory Tests Test 09/14/19 17:23 09/14/19 21:42 09/15/19 08:13 09/15/19 11:15 Glucose (Fingerstick) 94 mg/dL (70-99) 124 mg/dL (70-99) 98 mg/dL (70-99) 135 mg/dL (70-99) Brief Hospital Course Ms. Bautista is a 64 old AA female, admitted and treated for multiple ischemic CVA,s now on ASA and plavix, NEeds [facility] and agreeable, FULL CODE< NO swallow issues, on reg/cardiac diet. Awaiting for insurance auth, IF has a bed, will dc today MAR on chart Pt seen and examined, tess RN at bedside consults; neuro Proc; CVA work up Discharge Information Condition at Discharge: Improved, Stable Disposition/Orders: Other ([facility]) Scheduled Aspirin (Aspirin) 325 Mg Tablet, 1 TAB PO DAILY, #30 Ref 5 (Reported) Entered as Reported by: NITO GIPSON on 06/16/14 125 Last Taken: Unknown Dose on 09/09/197 Last Action: Continued on 09/09/192108 by WENCESLAO RUIZ MD Atorvastatin Calcium (Atorvastatin Calcium) 40 Mg Tablet, 1 TAB PO DAILY, #30 Ref 5 (Reported) Entered as Reported by: NITO GIPSON on 06/16/14 125 Last Taken: Unknown Dose on 09/08/191999 Last Action: Continued on 09/09/192108 by WENCESLAO RUIZ MD Clonidine Hcl (Clonidine Hcl) 0.1 Mg Tablet, 0.2 MG PO BID, (Reported) Entered as Reported by: Annmarie Duffy on 11/20/17841 Last Taken: Unknown Dose on 09/09/198 Last Action: Continued on 09/09/192108 by WENCESLAO RUIZ MD Clopidogrel Bisulfate (Clopidogrel) 75 Mg Tablet, 75 MG PO DAILYWBKFT for cva, #60 Prescribed by: MAGDA SOLER on 09/15/19 1038 Escitalopram Oxalate (Escitalopram Oxalate) 10 Mg Tablet, 1 TAB PO DAILY, #30 Ref 3 (Reported) Entered as Reported by: Annmarie Duffy on 11/20/17 0842 Last Taken: UNKNOWN on Unknown Date & Time Last Action: Converted on 09/09/192108 by WENCESLAO RUIZ MD Hydrocodone/Apap 10-325 ([place] 10-325 Tablet) 1 Each Tablet, 1 TAB PO QHS, #60 (Reported) Entered as Reported by: LUCIA TAVAREZ on 05/14/182131 Last Taken: Unknown Dose on 09/08/191999 Last Action: Continued on 09/09/192108 by WENCESLAO RUIZ MD Metformin Hcl (Metformin Hcl) 500 Mg Tablet, 1 TAB PO BID, #60 Ref 3 (Reported) Entered as Reported by: NITO GIPSON on 06/16/141250 Last Taken: Unknown Dose on Unknown Date & Time Last Action: Continued on 09/09/192108 by WENCESLAO RUIZ MD Metoprolol Tartrate (Metoprolol Tartrate) 50 Mg Tablet, 1 TAB PO BID, #60 Ref 5 (Reported) Entered as Reported by: LUCIA TAVAREZ on 05/14/182131 Last Taken: Unknown Dose on 09/09/198 Last Action: Continued on 09/09/192108 by WENCESLAO RUIZ MD Olmesartan/Amlodipin/Hcthiazid (Tribenzor 40-10-25 Mg Tablet) 1 Each Tablet, 1 TAB PO DAILY, #30 Ref 5 (Reported) Entered as Reported by: KEVIN BEARD on 11/14/14 1615 Last Taken: Unknown Dose on 09/08/191999 Last Action: Converted on 09/09/192108 by WENCESLAO RUIZ MD Oxybutynin Chloride (Oxybutynin Chloride) 5 Mg Tablet, 5 MG PO TID, (Reported) Entered as Reported by: Annmarie Duffy on 11/20/17 0842 Last Taken: Unknown Dose on 09/09/197 Last Action: Continued on 09/09/192108 by WENCESLAO RUIZ MD Scheduled PRN Albuterol Sulfate (Proair Hfa Inhaler) 8.5 Gm Hfa.aer.ad, 2 PUFF INH Q4-6HRS PRN for WHEEZING, #1 Ref 0 Prescribed by: CORRY MEJÍA on 12/12/16 1304 Last Taken: Unknown Dose on Unknown Date & Time Last Action: Continued on 09/09/192108 by WENCESLAO RUIZ MD Miscellaneous Medications Multivits-Min/Fa/Lycopene/Lut (Centrum Silver Tablet) 1 Each Tablet, 1 EACH PO, (Reported) Entered as Reported by: NITO GIPSON on 06/16/14 1251 Last Taken: Unknown Dose on Unknown Date & Time Last Action: Last Taken Edited on 09/09/192102 by ERIN MANUEL, RN MAGDA SOLER MD Sep 15, 2019 13:15
[2019-09-15] MEDS: ENOXAPARIN 40 MG/0.4 ML SYRINGE. SQ SCH ×2 (14:07→21:32)
[2019-09-15 15:00] VITALS: BP 131/70
[2019-09-15] MEDS: hydrALAZINE 25 MG TABLET PO SCH ×2 (17:26→21:32)
--- NOTE | 2019-09-15 18:17 | PDOC ---
PROGRESS NOTES Assessment Assessment Multiple acute infarcts in the right nicole, left occpital lobe, and bilateral cerebellum right > left. Basilar A stenosis. Bilateral P1 of [employer] vascular disease. Dizziness. HTN. CHF. Hearing loss. Former smoker x 30 years. Morbid obesity. Other medical diseases. RECOMMENDATIONS/PLAN: Continue Plavix 75 mg daily. Continue ASA daily. Continue Lipitor HS. Treat medical diseases. Weight reduction. PT/OT. FU with PCP. SUBJECTIVE: No new complaints on 09/15/19. OBJECTIVE: Refer to CTA and MRI reports. Past Medical History Cardiovascular: CHF (cardiomyopathy), HTN Pulmonary: Other (sleep apnea) Heme/Onc: Cancer (colon) Psych: Anxiety, Depression Musculoskeletal: Osteoarthritis (knees) Past Surgical History Cataract Removal, , Hernia Repair (abdominal times 3), Hysterectomy, Colon Resection (colostomy) Family History CAD Social History , retired, no alcohol or tobacco Allergies No Known Drug Allergies (Unverified , 08/06/19) ROS Negative for fever, chills, weight loss, shortness of breath, chest pain, indigestion, hematochezia, melena, and dysuria. Full 14-point review of systems is negative. MEDICATIONS: Refer to MAR PHYSICAL EXAMINATION: General appearance in no acute distress. HEENT: Normocephalic and nontraumatic. Eyes, nose, ears, and throat are unremarkable. Neck is supple. No lymphadenopathy. No Crepitus. Cardiovascular: S1, S2, regular rate and rhythm. Pulmonary: Clear to auscultation bilaterally. Abdomen: Bowel sounds are positive. Extremities: No rash, lesions, or edema. No restriction of range of motion NEUROLOGICAL EXAMINATION: Awake. Partially oriented to time, place and person. PERRL. EOMI. CN: no focal findings. Muscle tone: within normal. Muscle strength: 4+ DTR: 1- due to obesity. Plantar reflex: Neutral response bilaterally Gait: not examined in chair. Sensory exam: no acute abnormal findings. F-T-N test fine. Objective Objective Vital Signs Date Time Temp Pulse Resp B/P (MAP) Pulse Ox O2 Delivery O2 Flow Rate FiO2 09/15/19 17:26 48 131/70 09/15/19 15:00 98.2 16 97 Room Air 98.2 Intake and Output 09/15/19 07:00 Intake Total 1400 ml Balance 1400 ml Intake Oral 1400 ml # Voids 8 # Bowel Movements 1 Vitals Signs Vitals VS - Last 72 Hours, by Label Date Time Temp Pulse Resp B/P (MAP) Pulse Ox O2 Delivery O2 Flow Rate FiO2 09/15/19 17:26 48 131/70 09/15/19 15:00 98.2 48 16 131/70 (90) 97 Room Air 98.2 09/15/19 11:39 52 149/70 09/15/19 11:38 52 149/70 09/15/19 11:37 52 149/70 09/15/19 11:00 97.8 52 20 149/70 (96) 98 Room Air 97.8 09/15/19 07:00 98.5 48 18 155/65 (95) 100 Room Air 98.5 09/15/19 03:25 97.7 49 16 172/81 (111) 98 Room Air 97.7 09/14/19 23:25 97.7 49 16 172/81 (111) 98 Room Air 97.7 09/14/19 20:00 Room Air 09/14/19 19:25 97.7 48 16 134/69 (90) 97 Room Air 97.7 09/14/19 15:29 98.2 44 16 122/68 (86) 97 Room Air 98.2 09/14/19 11:02 97.3 44 16 140/67 (91) 100 Room Air 97.3 09/14/19 09:06 43 128/56 09/14/19 09:06 43 128/56 09/14/19 09:05 43 128/56 09/14/19 08:20 Room Air 09/14/19 07:30 97.8 43 16 128/56 (80) 98 Room Air 97.8 Laboratory Laboratory Laboratory Tests Test 09/14/19 21:42 09/15/19 08:13 09/15/19 11:15 09/15/19 16:44 Glucose (Fingerstick) 124 mg/dL (70-99) 98 mg/dL (70-99) 135 mg/dL (70-99) 99 mg/dL (70-99) Medication Medications Current Medications Clonidine HCl (Catapres) 0.1 mg BID PO Last administered on 09/15/19at 11:39; Start 09/15/19 at 09:00; Stop 09/15/19 at 15:50; Status DC Hydralazine HCl (Apresoline Inj) 10 mg PRN Q4HRS PRN IVP ELEVATED BP, SEE COMMENTS; Start 09/15/19 at 10:45 Hydralazine HCl (Apresoline) 25 mg TID PO Last administered on 09/15/19at 17:26; Start 09/15/19 at 16:00 Comment Review of Relevant I have reviewed the following items brenda (where applicable) has been applied. ELIANA MELENDREZ MD Sep 15, 2019 18:17
[2019-09-15 19:51] VITALS: BP 139/73
[2019-09-15] MEDS: ATORVASTATIN CALCIUM 40 MG TABLET. PO SCH (21:32)
[2019-09-15 23:33] VITALS: BP 146/86
[2019-09-16 03:43] VITALS: BP 147/75
[2019-09-16 07:00] VITALS: BP 163/89
[2019-09-16] MEDS: INSULIN LISPRO 300 UNITS/3 ML VIAL. SQ SCH ×2 (07:30→11:30)
[2019-09-16] MEDS: POLYETHYLENE GLYCOL 3350 17 GM PACKET. PO SCH (09:00)
[2019-09-16] MEDS: PSYLLIUM HUSK (SUGAR FREE) 1 PKT PACKET PO SCH (09:02)
[2019-09-16] MEDS: amLODIPine BESYLATE 10 MG TABLET PO SCH (09:02)
[2019-09-16] MEDS: CITALOPRAM 20 MG TABLET. PO SCH (09:03)
[2019-09-16] MEDS: hydroCHLOROthiazide 25 MG TABLET PO SCH (09:03)
[2019-09-16] MEDS: metFORMIN 500 MG TABLET PO SCH (09:03)
[2019-09-16] MEDS: LOSARTAN POTASSIUM 50 MG TABLET. PO SCH (09:03)
[2019-09-16] MEDS: hydrALAZINE 25 MG TABLET PO SCH ×2 (09:03→15:50)
[2019-09-16] MEDS: CLOPIDOGREL BISULFATE 75 MG TABLET PO SCH (09:03)
[2019-09-16] MEDS: ASPIRIN ENTERIC COATED 325 MG TABLET.DR. PO SCH (09:04)
[2019-09-16] MEDS: OXYBUTYNIN CHLORIDE 5 MG TABLET PO SCH ×2 (09:04→15:51)
[2019-09-16] MEDS: ENOXAPARIN 40 MG/0.4 ML SYRINGE. SQ SCH (09:05)
--- NOTE | 2019-09-16 10:16 | PDOC ---
PROGRESS NOTES History of Present Illness History of Present Illness VTE Prophylaxis Ordered VTE Prophylaxis Devices: No VTE Pharmacological Prophylaxi: Yes Assessment/Plan Assessment/Plan impression dIZZINESS/ VERTIGO high fall risk HTN Multifocal acute infarcts within the right nicole, left occipital lobe and right greater than left cerebellum. Findings may relate to embolic etiology. If concern for basilar artery compromise CT angiogram can further assess. cardiomyopathy\ htn hyperlipidemia The Ejection Fraction is 60-65%. There is normal LV segmental wall motion. Trace to mild mitral regurgitation. Mild tricuspid regurgitation. 2018 PA pressure was estimated at 68 mmHg. C/W SEVERE PULM HTN HX 2018 Hemicolectomy with Silvina's pouch and flexible sigmoidoscopy. djd knees PLAN admit tele NEUROLOGY CONSULT TELE NEUROCHECKS Q 4 HRS PT/OT may need vestibular therapy ECHO CARDIOLOGY CONSULT MRI of the brain Rehabilitation screening bubble study Dual antiplatelet therapy Skilled interventions required to achieve goals * Activity mark. training * ADL training/education * Adaptive equip. training * Functional mobility train Discharge Recommendations * Acute Rehab facility Discharge Recommendation - DME * Rolling Walker needed * in order to complete ADLs * and ambulation safely Discharge Recommendation Comments * strongly recommend acute rehab * 27 MIN PT EXAM, CHART REVIEW, d/c planning > 50% of time spent with exam, chart review, pt care coordination Vitals Vitals Vital Signs Date Time Temp Pulse Resp B/P (MAP) Pulse Ox O2 Delivery O2 Flow Rate FiO2 09/16/19 09:03 52 163/89 09/16/19 07:00 97.8 16 97 Room Air 97.8 Physical Exam General: No acute distress Heart: Other (mild bradycardia) Lungs: Clear Abdomen: Normal bowel sounds Extremities: No cyanosis, No edema Skin: No breakdown, No significant lesion Labs LABS Laboratory Tests Test 09/15/19 11:15 09/15/19 16:44 09/15/19 20:19 09/16/19 07:32 Glucose (Fingerstick) 135 mg/dL (70-99) 99 mg/dL (70-99) 107 mg/dL (70-99) 107 mg/dL (70-99) Comment Review of Relevant I have reviewed the following items brenda (where applicable) has been applied. Labs Laboratory Tests Test 09/14/19 11:49 09/14/19 17:23 09/14/19 21:42 09/15/19 08:13 Glucose (Fingerstick) 130 mg/dL (70-99) 94 mg/dL (70-99) 124 mg/dL (70-99) 98 mg/dL (70-99) Test 09/15/19 11:15 09/15/19 16:44 09/15/19 20:19 09/16/19 07:32 Glucose (Fingerstick) 135 mg/dL (70-99) 99 mg/dL (70-99) 107 mg/dL (70-99) 107 mg/dL (70-99) Laboratory Tests Test 09/15/19 11:15 09/15/19 16:44 09/15/19 20:19 09/16/19 07:32 Glucose (Fingerstick) 135 mg/dL (70-99) 99 mg/dL (70-99) 107 mg/dL (70-99) 107 mg/dL (70-99) Medications Current Medications Ondansetron HCl (Zofran) 4 mg PRN Q4HRS PRN IV NAUSEA/VOMITING; Start 09/09/19 at 21:15; Stop 09/10/19 at 16:02; Status DC Acetaminophen (Tylenol) 650 mg PRN Q4HRS PRN PO TEMP OVER 100.4F OR MILD PAIN; Start 09/09/19 at 21:15; Stop 09/10/19 at 13:43; Status DC Clonidine HCl (Catapres) 0.1 mg PRN Q6HRS PRN PO SBP>160 OR DBP>90; Start 09/09/19 at 21:15; Stop 09/10/19 at 16:00; Status DC Docusate Sodium (Colace) 100 mg PRN BID PRN PO CONSTIPATION; Start 09/09/19 at 21:15; Stop 09/10/19 at 16:02; Status DC Enoxaparin Sodium (Lovenox 40mg Syringe) 40 mg DAILY SQ Last administered on 09/10/19at 09:56; Start 09/10/19 at 09:00; Stop 09/10/19 at 15:26; Status DC Labetalol HCl (Normodyne Iv Push) 10 mg PRN Q2HR PRN IVP HYPERTENSION; Start 09/09/19 at 21:15 Insulin Human Lispro (HumaLOG) 0-7 UNITS TIDACHC SQ Last administered on 09/13/19at 12:28; Start 09/09/19 at 21:30 Dextrose (Dextrose 50%-Water Syringe) 12.5 gm PRN Q15MIN PRN IV SEE COMMENTS; Start 09/09/19 at 21:15 Albuterol Sulfate (Ventolin Neb Soln) 2.5 mg PRN Q4HRS PRN INH WHEEZING; Start 09/09/19 at 21:15; Stop 09/10/19 at 16:01; Status DC Aspirin (Radha Aspirin) 325 mg DAILYWBKFT PO Last administered on 09/10/19at 09:55; Start 09/10/19 at 08:00; Stop 09/10/19 at 13:41; Status DC Atorvastatin Calcium (Lipitor) 40 mg QHS PO Last administered on 09/15/19at 21:32; Start 09/09/19 at 21:30 Clonidine HCl (Catapres) 0.2 mg BID PO Last administered on 09/14/19at 09:05; Start 09/09/19 at 21:30; Stop 09/14/19 at 14:26; Status DC Acetaminophen/ Hydrocodone Bitart (Lortab 10/325) 1 tab PRN QHS PRN PO pain Last administered on 09/11/19at 15:28; Start 09/09/19 at 21:15 Metformin HCl (Glucophage) 500 mg BIDWMEALS PO Last administered on 09/10/19 09:55; Start 09/10/19 at 08:00; Stop 09/10/19 at 13:42; Status DC Metoprolol Tartrate (Lopressor) 50 mg BID PO Last administered on 09/10/19at 09:55; Start 09/09/19 at 21:30; Stop 09/10/19 at 17:48; Status DC Oxybutynin Chloride (Ditropan) 5 mg TID PO Last administered on 09/16/19at 09:04; Start 09/09/19 at 21:30 Citalopram Hydrobromide (CeleXA) 20 mg DAILY PO Last administered on 09/16/19at 09:03; Start 09/10/19 at 09:00 Non-Formulary Medication (Olmesartan/ Amlodipin/ Hcthiazid (Tribenzor 40-10-25 Mg Tablet)) 1 tab DAILY PO ; Start 09/10/19 at 09:00; Status UNV Losartan Potassium (Cozaar) 100 mg DAILY PO Last administered on 09/16/19 09:03; Start 09/10/19 at 09:00 Amlodipine Besylate (Norvasc) 10 mg DAILY PO Last administered on 09/16/19at 09:02; Start 09/10/19 at 09:00 Hydrochlorothiazide (Hydrodiuril) 25 mg DAILY PO Last administered on 09/16/19 09:03; Start 09/10/19 at 09:00 Influenza Virus Vaccine Quadrival (Afluria Quad 2019-20 (3yr Up) Syringe) 0.5 ml ONCE ONCE VAX IM Last administered on 09/10/19at 10:06; Start 09/10/19 at 09:00; Stop 09/10/19 at 09:01; Status DC Enoxaparin Sodium (Lovenox 40mg Syringe) 40 mg Q24H SQ ; Start 09/10/19 at 13:30; Status UNV Acetaminophen (Tylenol) 650 mg PRN Q6HRS PRN PO TEMP > 100.4F; Start 09/10/19 at 13:30; Stop 09/10/19 at 16:01; Status DC Acetaminophen (Tylenol Supp) 650 mg PRN Q4HRS PRN LA TEMP > 100.4F; Start 09/10/19 at 13:30 Aspirin (Ecotrin) 325 mg DAILYWBKFT PO Last administered on 09/16/19at 09:04; Start 09/11/19 at 08:00 Aspirin (Aspirin Rectal Supp) 300 mg PRN DAILY PRN LA IF UNABLE TO TAKE PO; Start 09/10/19 at 13:30 Iohexol (Omnipaque 350 Mg/ml) 75 ml 1X ONCE IV Last administered on 09/10/19at 15:22; Start 09/10/19 at 13:45; Stop 09/10/19 at 13:46; Status DC Metformin HCl (Glucophage) 500 mg BIDWMEALS PO Last administered on 09/16/19at 09:03; Start 09/12/19 at 17:00 Info (CONTRAST GIVEN -- Rx MONITORING) 1 each PRN DAILY PRN MC SEE COMMENTS; Start 09/10/19 at 13:45; Stop 09/12/19 at 13:44; Status DC Enoxaparin Sodium (Lovenox 40mg Syringe) 40 mg BID SQ Last administered on 09/16/19at 09:05; Start 09/10/19 at 21:00 Sodium Chloride (Normal Saline Flush) 3 ml QSHIFT PRN IV AFTER MEDS AND BLOOD DRAWS; Start 09/10/19 at 15:45 Sodium Chloride 1,000 ml @ 70 mls/hr [id number] IV Last administered on 09/15/19at 11:39; Start 09/10/19 at 15:31; Stop 09/15/19 at 13:14; Status DC Ondansetron HCl (Zofran) 4 mg PRN Q4HRS PRN IV NAUSEA/VOMITING Last administered on 09/13/19at 14:41; Start 09/10/19 at 15:45 Zolpidem Tartrate (Ambien) 5 mg PRN QHS PRN PO INSOMNIA; Start 09/10/19 at 15:45 Acetaminophen (Tylenol) 650 mg PRN Q4HRS PRN PO TEMP OVER 100.4F OR MILD PAIN Last administered on 09/14/19at 17:00; Start 09/10/19 at 15:45 Acetaminophen (Tylenol) 650 mg PRN Q4HRS PRN GT TEMP OVER 100.4F OR MILD PAIN; Start 09/10/19 at 15:45 Al Hydroxide/Mg Hydroxide (Mylanta Plus Xs) 30 ml PRN DAILY PRN PO HEARTBURN / GAS; Start 09/10/19 at 15:45 Clonidine HCl (Catapres) 0.1 mg PRN Q6HRS PRN PO SBP>160 OR DBP>90; Start 09/10/19 at 15:45; Stop 09/14/19 at 14:26; Status DC Docusate Sodium (Colace) 100 mg PRN BID PRN PO CONSTIPATION Last administered on 09/11/19at 20:11; Start 09/10/19 at 15:45 Albuterol Sulfate (Ventolin Neb Soln) 2.5 mg PRN Q4HRS PRN NEB SHORTNESS OF BREATH; Start 09/10/19 at 15:45 Guaifenesin (Robitussin) 200 mg PRN Q4HRS PRN PO COUGH; Start 09/10/19 at 15:45 Lorazepam (Ativan) 0.5 mg PRN Q4HRS PRN PO ANXIETY / AGITATION; Start 09/10/19 at 15:45 Enoxaparin Sodium (Lovenox 40mg Syringe) 40 mg DAILY SQ ; Start 09/11/19 at 09:00; Stop 09/10/19 at 16:01; Status DC Hydralazine HCl (Apresoline Inj) 10 mg PRN Q4HRS PRN IVP ELEVATED BP, SEE COMMENTS; Start 09/10/19 at 18:00 Clopidogrel Bisulfate (Plavix) 75 mg DAILYWBKFT PO Last administered on 09/16/19at 09:03; Start 09/11/19 at 15:00 Carbamide Peroxide (Debrox) 5 drop 1X ONCE AD Last administered on 09/12/19at 13:00; Start 09/12/19 at 13:00; Stop 09/12/19 at 13:02; Status DC Polyethylene Glycol (miraLAX PACKET) 17 gm DAILY PO Last administered on 09/14/19at 09:07; Start 09/13/19 at 09:00 Polyethylene Glycol (miraLAX PACKET) 17 gm 1X ONCE PO Last administered on 09/12/19at 20:14; Start 09/12/19 at 19:30; Stop 09/12/19 at 19:31; Status DC Magnesium Hydroxide (Milk Of Magnesia) 2,400 mg PRN DAILY ONCE PO ; Start 09/12/19 at 19:15; Stop 09/12/19 at 19:24; Status DC Psyllium Hydrophilic Mucilloid (Metamucil Fiber Packet) 1 pkt DAILY PO ; Start 09/13/19 at 09:00; Stop 09/12/19 at 20:22; Status DC Psyllium Hydrophilic Mucilloid (Metamucil Fiber Packet) 1 pkt 1X PO ; Start 09/12/19 at 19:30; Status Cancel Psyllium Hydrophilic Mucilloid (Metamucil Fiber Packet) 1 pkt DAILY PO Last administered on 09/16/19at 09:02; Start 09/12/19 at 20:30 Clonidine HCl (Catapres) 0.1 mg BID PO Last administered on 09/15/19at 11:39; Start 09/15/19 at 09:00; Stop 09/15/19 at 15:50; Status DC Hydralazine HCl (Apresoline Inj) 10 mg PRN Q4HRS PRN IVP ELEVATED BP, SEE COMMENTS; Start 09/15/19 at 10:45 Hydralazine HCl (Apresoline) 25 mg TID PO Last administered on 09/16/19at 09:03; Start 09/15/19 at 16:00 Active Scripts Active Clopidogrel (Clopidogrel Bisulfate) 75 Mg Tablet 75 Mg PO DAILYWBKFT Proair Hfa Inhaler (Albuterol Sulfate) 8.5 Gm Hfa.aer.ad 2 Puff INH Q4-6HRS PRN Reported Chappell 10-325 Tablet (Acetaminophen/Hydrocodone Bitart) 1 Each Tablet 1 Tab PO QHS Metoprolol Tartrate 50 Mg Tablet 1 Tab PO BID Oxybutynin Chloride 5 Mg Tablet 5 Mg PO TID Clonidine Hcl 0.1 Mg Tablet 0.2 Mg PO BID Escitalopram Oxalate 10 Mg Tablet 1 Tab PO DAILY Tribenzor 40-10-25 Mg Tablet (Olmesartan/Amlodipin/Hcthiazid) 1 Each Tablet 1 Tab PO DAILY Centrum Silver Tablet (Multivits-Min/Fa/Lycopene/Lut) 1 Each Tablet 1 Each PO Aspirin 325 Mg Tablet 1 Tab PO DAILY Atorvastatin Calcium 40 Mg Tablet 1 Tab PO DAILY Metformin Hcl 500 Mg Tablet 1 Tab PO BID Vitals/I & O Vital Sign - Last 24 Hours 09/15/19 09/15/19 09/15/19 09/15/19 11:00 11:37 11:38 11:39 Temp 97.8 97.8 Pulse 52 52 52 52 Resp 20 B/P (MAP) 149/70 (96) 149/70 149/70 149/70 Pulse Ox 98 O2 Delivery Room Air 09/15/19 09/15/19 09/15/19 09/15/19 15:00 17:26 19:51 21:32 Temp 98.2 98.5 98.2 98.5 Pulse 48 48 53 53 Resp 16 20 B/P (MAP) 131/70 (90) 131/70 139/73 (95) 139/73 Pulse Ox 97 98 O2 Delivery Room Air Room Air 09/15/19 09/16/19 09/16/19 09/16/19 23:33 03:43 07:00 09:02 Temp 98.1 98.2 97.8 98.1 98.2 97.8 Pulse 62 54 52 52 Resp 18 18 16 B/P (MAP) 146/86 (106) 147/75 (99) 163/89 (113) 163/89 Pulse Ox 97 97 97 O2 Delivery Room Air Room Air Room Air 09/16/19 09/16/19 09:03 09:03 Pulse 52 52 B/P (MAP) 163/89 163/89 Intake and Output 09/15/19 09/15/19 09/16/19 15:00 23:00 07:00 Intake Total 400 ml 906 ml 350 ml Output Total 800 ml 650 ml 1600 ml Balance -400 ml 256 ml -1250 ml LESLY PATE MD Sep 16, 2019 10:16
[2019-09-16 11:00] VITALS: BP 146/77
--- NOTE | 2019-09-16 11:21 | SNU/HH DC ---
DISCHARGE ORDERS DISCHARGE INFORMATION: DISCHARGE DATE: Sep 15, 2019 CONDITION ON DISCHARGE: Stable CODE STATUS: Code Status: Full HOSPICE: HOSPICE: No HOSPICE EVAL & TREAT: No LTAC: ADMIT TO LTAC: No POST DISCHARGE ORDERS: ACTIVITY ORDERS: No restrictions, Activity as tolerated WEIGHT BEARING STATUS: As tolerated BATHING ORDERS: No Tub Bath until see Dr. MESSINA AFTER DISCHARGE: Cardiac CHECKS AFTER DISCHARGE: CHECKS AFTER DISCHARGE: Check blood press - daily, Check blood sugar, ac/hs FOLLOW-UP: PHYSICIAN FOLLOW-UP: she has multiple strokes, ischemic - ASA 325and plavix pls TREATMENT/EQUIPMENT ORDERS: ADAPTIVE EQUIPMENT NEEDED: None Physical Therapy For: Evalulation/Treatment Occupational Therapy For: Evaluation/Treatment DISCHARGE MEDICATIONS: Home Meds Active Scripts Clopidogrel Bisulfate (CLOPIDOGREL) 75 Mg Tablet, 75 MG PO DAILYWBKFT for cva, #60 TAB Prov:MAGDA SOLER MD 09/15/19 Albuterol Sulfate (PROAIR HFA INHALER) 8.5 Gm Hfa.aer.ad, 2 PUFF INH Q4-6HRS PRN for WHEEZING, #1 INHALER 0 Refills Prov:CORRY MEJÍA MD 12/12/16 Reported Medications Hydrocodone/Apap 10-325 (NORCO 10-325 TABLET) 1 Each Tablet, 1 TAB PO QHS, #60 TAB 05/14/18 Metoprolol Tartrate (METOPROLOL TARTRATE) 50 Mg Tablet, 1 TAB PO BID, #60 TAB 5 Refills 05/14/18 Oxybutynin Chloride (OXYBUTYNIN CHLORIDE) 5 Mg Tablet, 5 MG PO TID, TAB 11/20/17 Clonidine Hcl (CLONIDINE HCL) 0.1 Mg Tablet, 0.2 MG PO BID, TAB 11/20/17 Escitalopram Oxalate (ESCITALOPRAM OXALATE) 10 Mg Tablet, 1 TAB PO DAILY, #30 TAB 3 Refills 11/20/17 Olmesartan/Amlodipin/Hcthiazid (TRIBENZOR 40-10-25 MG TABLET) 1 Each Tablet, 1 TAB PO DAILY, #30 TAB 5 Refills 11/14/14 Multivits-Min/Fa/Lycopene/Lut (CENTRUM SILVER TABLET) 1 Each Tablet, 1 EACH PO 06/16/14 Aspirin (ASPIRIN) 325 Mg Tablet, 1 TAB PO DAILY, #30 TAB 5 Refills 06/16/14 Atorvastatin Calcium (ATORVASTATIN CALCIUM) 40 Mg Tablet, 1 TAB PO DAILY, #30 T AB 5 Refills 06/16/14 Metformin Hcl (METFORMIN HCL) 500 Mg Tablet, 1 TAB PO BID, #60 TAB 3 Refills 06/16/14 LESLY PATE MD Sep 16, 2019 11:21
[2019-09-16 15:00] VITALS: BP 150/77
[2019-09-16 15:50] VITALS: BP 146/77
--- NOTE | 2019-09-16 15:53 | NUR ---
Gave report to Sue GREER at [facility]. She was escorted out via wheelchair by transportation [place]. CHIN and Monitor off
--- NOTE | 2019-09-16 16:29 | PDOC ---
PROGRESS NOTES Assessment Assessment Multiple acute infarcts in the right nicole, left occpital lobe, and bilateral cerebellum right > left. Basilar A stenosis. Bilateral P1 of [employer]NER vascular disease. Dizziness. HTN. CHF. Hearing loss. Former smoker x 30 years. Morbid obesity. Other medical diseases. RECOMMENDATIONS/PLAN: Continue Plavix 75 mg daily. Continue ASA daily. Continue Lipitor HS. Treat medical diseases. Weight reduction. PT/OT. FU with PCP. SUBJECTIVE: No new complaints on 09/15/19. OBJECTIVE: Refer to CTA and MRI reports. Past Medical History Cardiovascular: CHF (cardiomyopathy), HTN Pulmonary: Other (sleep apnea) Heme/Onc: Cancer (colon) Psych: Anxiety, Depression Musculoskeletal: Osteoarthritis (knees) Past Surgical History Cataract Removal, , Hernia Repair (abdominal times 3), Hysterectomy, Colon Resection (colostomy) Family History CAD Social History , retired, no alcohol or tobacco Allergies No Known Drug Allergies (Unverified , 08/06/19) ROS Negative for fever, chills, weight loss, shortness of breath, chest pain, indigestion, hematochezia, melena, and dysuria. Full 14-point review of systems is negative. MEDICATIONS: Refer to MAR PHYSICAL EXAMINATION: General appearance in no acute distress. HEENT: Normocephalic and nontraumatic. Eyes, nose, ears, and throat are unremarkable. Neck is supple. No lymphadenopathy. No Crepitus. Cardiovascular: S1, S2, regular rate and rhythm. Pulmonary: Clear to auscultation bilaterally. Abdomen: Bowel sounds are positive. Extremities: No rash, lesions, or edema. No restriction of range of motion NEUROLOGICAL EXAMINATION: Awake. Partially oriented to time, place and person. PERRL. EOMI. CN: no focal findings. Muscle tone: within normal. Muscle strength: 5- DTR: 1- due to obesity. Plantar reflex: Neutral response bilaterally Gait: Able to walk with a walker. Sensory exam: no acute abnormal findings. F-T-N test fine. Objective Objective Vital Signs Date Time Temp Pulse Resp B/P (MAP) Pulse Ox O2 Delivery O2 Flow Rate FiO2 09/16/19 15:50 55 146/77 09/16/19 11:00 98.5 14 96 Room Air 98.5 Intake and Output 09/16/19 07:00 Intake Total 1656 ml Output Total 3050 ml Balance -1394 ml Intake Oral 750 ml IV Total 406 ml Blood Product IV Normal Saline Flush 500 ml Output Urine Total 2000 ml Stool Total 350 ml Urine/Stool Mix 700 ml Vitals Signs Vitals VS - Last 72 Hours, by Label Date Time Temp Pulse Resp B/P (MAP) Pulse Ox O2 Delivery O2 Flow Rate FiO2 09/16/19 15:50 55 146/77 09/16/19 11:00 98.5 55 14 146/77 (100) 96 Room Air 98.5 09/16/19 09:03 52 163/89 09/16/19 09:03 52 163/89 09/16/19 09:02 52 163/89 09/16/19 08:00 Room Air 09/16/19 07:00 97.8 52 16 163/89 (113) 97 Room Air 97.8 09/16/19 03:43 98.2 54 18 147/75 (99) 97 Room Air 98.2 09/15/19 23:33 98.1 62 18 146/86 (106) 97 Room Air 98.1 09/15/19 21:32 53 139/73 09/15/19 19:51 98.5 53 20 139/73 (95) 98 Room Air 98.5 09/15/19 17:26 48 131/70 09/15/19 15:00 98.2 48 16 131/70 (90) 97 Room Air 98.2 09/15/19 11:39 52 149/70 09/15/19 11:38 52 149/70 09/15/19 11:37 52 149/70 09/15/19 11:00 97.8 52 20 149/70 (96) 98 Room Air 97.8 09/15/19 07:00 98.5 48 18 155/65 (95) 100 Room Air 98.5 Laboratory Laboratory Laboratory Tests Test 09/15/19 16:44 09/15/19 20:19 09/16/19 07:32 09/16/19 11:44 Glucose (Fingerstick) 99 mg/dL (70-99) 107 mg/dL (70-99) 107 mg/dL (70-99) 102 mg/dL (70-99) Comment Review of Relevant I have reviewed the following items brenda (where applicable) has been applied. ELIANA MELENDREZ MD Sep 16, 2019 16:29
== END 2019-09-16 16:00 | DRG 65 ==
LOC: 6 SOUTH 19:45
PROVIDERS: ADMIT Internal Medicine; ATTEND Internal Medicine
DX: I63.9 Cerebral infarction, unspecified (principal); I50.32 Chronic diastolic (congestive) heart failure; I13.0 Hypertensive heart and chronic kidney disease with heart failure and stage 1 through stage 4 chronic kidney disease, or unspecified chronic kidney disease; I42.9 Cardiomyopathy, unspecified; Z68.42 Body mass index [BMI] 45.0-49.9, adult; E11.22 Type 2 diabetes mellitus with diabetic chronic kidney disease; E66.01 Morbid (severe) obesity due to excess calories; E78.5 Hyperlipidemia, unspecified; F32.9 Major depressive disorder, single episode, unspecified; F41.9 Anxiety disorder, unspecified; G47.33 Obstructive sleep apnea (adult) (pediatric); H61.20 Impacted cerumen, unspecified ear; I27.20 Pulmonary hypertension, unspecified; I65.1 Occlusion and stenosis of basilar artery; I65.29 Occlusion and stenosis of unspecified carotid artery; J44.9 Chronic obstructive pulmonary disease, unspecified; M17.0 Bilateral primary osteoarthritis of knee; N18.3 Chronic kidney disease, stage 3 (moderate); Z79.02 Long term (current) use of antithrombotics/antiplatelets; Z79.82 Long term (current) use of aspirin; Z79.84 Long term (current) use of oral hypoglycemic drugs; Z79.899 Other long term (current) drug therapy; Z82.49 Family history of ischemic heart disease and other diseases of the circulatory system; Z85.038 Personal history of other malignant neoplasm of large intestine; Z86.73 Personal history of transient ischemic attack (TIA), and cerebral infarction without residual deficits; Z87.891 Personal history of nicotine dependence; Z90.710 Acquired absence of both cervix and uterus; Z91.81 History of falling; Z93.3 Colostomy status; K21.9 Gastro-esophageal reflux disease without esophagitis
CPT/HCPCS: 36415; 70496; 70498; 70551; 80048; 80061; 82962; 84443; 85025; 90471; 90686; 93005; 93306; J1650; J1815; J2405; J7030; Q9967; 92507; 92523; 92526; 92610; 97110; 97116; 97530; 97535; G0378